=== PATIENT | male | born 1935 | race Caucasian/White ===

== ENCOUNTER 2019-10-19 00:22 | Outpatient (CLI) | payer MEDICARE, SELFPAY ==
[2019-10-19 17:48] LABS: SARS-CoV-2 RNA PCR Negative
== END 2019-10-19 00:23 | disposition home or self-care (01) ==
LOC: ANHCOVIDDT 00:23
PROVIDERS: PCP Internal Medicine; Visit Provider Internal Medicine Cardiovascular Disease
DX: Z01.818 Encounter for other preprocedural examination (principal); Z11.59 Encounter for screening for other viral diseases
CPT/HCPCS: 87635; C9803; U0003

== ENCOUNTER → 2019-10-22 05:39 | Day surgery (SDC) | payer MEDICARE, SELFPAY ==
[2019-10-22 08:16] VITALS: BP 139/83; PULSE 62; RESP 13; TEMP 36.7; O2SAT 97; BMI 26.4
--- NOTE | 2019-10-22 08:46 | WPDHPUPDATE1 ---
History and Physical Update Update Date/Time: 10/22/19 08:46 History and Physical has been reviewed, including an updated exam of the patient. There are NO changes in the patient's condition. Risks, benefits, and alternatives have been discussed and questions answered. Patient agrees to proceed with procedure.
--- NOTE | 2019-10-22 08:46 | PM.PROC ---
Procedure Note - Detailed Date of procedure: 10/22/19 Pre-op diagnosis: Syncope Post-op diagnosis: same Procedure performed: Loop recorder implantation Description of procedure: Brief history present illness: Patient is a very pleasant 84-year-old male with a history of nonsustained ventricular tachycardia, PVCs, syncope, hypertension, dyslipidemia, mitral regurgitation referred for loop recorder implantation given unexplained syncope and ventricular arrhythmias. After verbal and written informed consent was obtained from the patient risks, benefits, and alternatives explained in detail the patient agreed to proceed with the plan of care as outlined above. Patient was evaluated at bedside in the [facility] procedure room. Patient was placed the appropriate supine position. Left anterior chest wall was prepped and draped in the usual sterile fashion. Operators in appropriate sterile garb. The left 4th intercostal space was identified and marked. Utilizing approximately 16 cc of 1% subcutaneous lidocaine the left anterior chest wall was then locally anesthetized. After local anesthesia was achieved, 2 fingerbreadths left of the sternum the 4-5th intercostal space was again identified and a 1 cm incision was made with the included skin punch tool. Following this with the included introducer, a tract was made subcutaneously at a 45 degree angle from the sternum. The introducer was then inverted 180 degrees and with the included plunger the Medtronic REVEAL LINQ loop recorder was advanced subcutaneously into position easily and without complication. The plunger was then removed followed by the introducer. Manual pressure was held for least 5-10 min with excellent hemostasis. The device was then interrogated and revealed excellent fidelity and measured at mV. The Medtronic REVEAL LINQ SN [id number] was implanted without complication. The incision was then approximated and closed using ExoFin skin adhesive. The incision was then covered with a sterile dressing. Complications: None Implants: Medtronic REVEAL LINQ loop recorder Anesthesia: local Surgeon: Sanford Hudson MD Drains: No Packing: No Pathology: none sent Complications: No immediate complications Condition: stable Disposition: same day Findings: Successful implantation of Medtronic Reveal LINQ loop recorder SN [id number] without complication.
[2019-10-22 09:30] VITALS: BP 135/68; PULSE 72; RESP 14; TEMP 36.9; O2SAT 97
--- NOTE | 2019-10-22 10:28 | SUR.OPER ---
0945 D/C instructions reviewed with patient, questions asked pt verbalized understanding, left upper chest dressing c/d/i, no stated pain per pt, pt ambulatory and escorted out to his that is transporting him home in private vehicle.
== END | disposition home or self-care (01) ==
PROVIDERS: PCP Internal Medicine; Visit Provider Internal Medicine Cardiovascular Disease
PROC: (CPT 33285; principal; 2019-10-22 08:30)
DX: R55 Syncope and collapse (principal); I10 Essential (primary) hypertension; E78.5 Hyperlipidemia, unspecified; I47.1 Supraventricular tachycardia; I34.0 Nonrheumatic mitral (valve) insufficiency; I49.3 Ventricular premature depolarization
CPT/HCPCS: 33285; 87635; C1764; C9803; J7040; U0003

== ENCOUNTER 2020-03-18 09:55 | Outpatient (CLI) | payer MEDICARE, SELFPAY ==
[2020-03-18 10:41] LABS: Alanine Aminotransferase 27 U/L (4-50); Albumin Level 4.3 g/dL (3.5-5.1); Alkaline Phosphatase 66 U/L (38-126); Anion Gap 8 mmol/L (8-16); Aspartate Amino Transferase 33 U/L (17-59); Bilirubin,Total 0.4 mg/dL (0.2-1.3); Blood Urea Nitrogen 22 mg/dL (9-20); Calcium 9.2 mg/dL (8.4-10.2); Carbon Dioxide 27 mmol/L (22-30); Chloride 104 mmol/L (98-107); Cholesterol 128 mg/dL (0-200); Estimated Glomerular Filt Rate > 60; Glucose 96 mg/dL (75-110); HDL Direct 43 mg/dL; Potassium 4.6 mmol/L (3.4-5.0); Sodium 139 mmol/L (137-145); Triglycerides 72 mg/dL (<150)
[2020-03-18 10:52] LABS: LDL Cholesterol Direct 60 mg/dL
[2020-03-18 11:24] LABS: Vitamin D 25 Hydroxy 47.5 ng/mL
[2020-03-18 12:59] LABS: Hemoglobin A1C 5.6 % (<5.7)
== END 2020-03-18 09:56 | disposition home or self-care (01) ==
LOC: ANHLAB 09:57
PROVIDERS: PCP Internal Medicine; Visit Provider Nurse Practitioner
DX: R73.02 Impaired glucose tolerance (oral) (principal); E55.9 Vitamin D deficiency, unspecified; E78.00 Pure hypercholesterolemia, unspecified
CPT/HCPCS: 36415; 80053; 80061; 82306; 83036

== ENCOUNTER 2020-09-01 14:43 | Outpatient (CLI) | payer MEDICARE, SELFPAY ==
--- NOTE | ~2020-09-01 | XR_ITS ---
EXAMINATION: XR chest 2V DATE: 09/01/2020 15:07 INDICATION: Cough TECHNIQUE: PA and lateral views of the chest were obtained. COMPARISON: Chest radiograph dated 04/27/2019 FINDINGS: The lungs are now clear with no focal airspace opacities, pulmonary edema, pleural effusion or pneumo thorax. The cardiomediastinal silhouette is normal. Left pectoral implantable cardiac cath lab manager. Mild t horacic spondylosis. IMPRESSION: 1. No acute cardiopulmonary disease. Reviewed, dictated and finalized at location A.
== END 2020-09-01 14:44 | disposition home or self-care (01) ==
LOC: ANHIMG 14:56
PROVIDERS: PCP Internal Medicine; Visit Provider Internal Medicine
DX: R05 Cough (principal); I10 Essential (primary) hypertension; Z51.81 Encounter for therapeutic drug level monitoring
CPT/HCPCS: 71046

== ENCOUNTER 2020-09-23 10:28 | Outpatient (CLI) | payer MEDICARE, SELFPAY ==
--- NOTE | ~2020-09-23 | XR_ITS ---
XR knee LT 3V DATE: 09/23/2020 11:06 INDICATION: Chronic left knee pain for years. No recent injury. TECHNIQUE: [place] and AP and lateral views COMPARISON: 12/23/2016 left knee FINDINGS: There is severe narrowing and prominent periarticular spurring at the patellofemoral joint, with mild lateral subluxation. There is prominent loss of height of the medial compartment joint space. There is mild periarticular spurring of the lateral tibial patella. Diffuse osteopenia. No fracture or dislocation or joint effusion is evident. No periosteal reaction or bone destruction. No radiopaque intra-articular loose body or chondrocalcinosis is noted. IMPRESSION: Tricompartment osteoarthritis with increasing severity from a lateral to the medial to th e patellofemoral compartment Reviewed, dictated and finalized at location B. IMPRESSION: Tricompartment osteoarthritis with increasing severity from a later al to the medial to the patellofemoral compartment
[2020-09-23 11:14] LABS: Alanine Aminotransferase 18 U/L (4-50); Albumin Level 4.1 g/dL (3.5-5.1); Alkaline Phosphatase 66 U/L (38-126); Anion Gap 5 mmol/L (8-16); Aspartate Amino Transferase 26 U/L (17-59); Bilirubin,Total 0.6 mg/dL (0.2-1.3); Blood Urea Nitrogen 17 mg/dL (9-20); Calcium 9.6 mg/dL (8.4-10.2); Carbon Dioxide 27 mmol/L (22-30); Chloride 106 mmol/L (98-107); Cholesterol 117 mg/dL (0-200); Estimated Glomerular Filt Rate > 60; Glucose 96 mg/dL (75-110); HDL Direct 48 mg/dL; Hemoglobin A1C 5.9 % (<5.7); Potassium 4.5 mmol/L (3.4-5.0); Sodium 138 mmol/L (137-145); Triglycerides 60 mg/dL (<150)
[2020-09-23 11:25] LABS: LDL Cholesterol Direct 53 mg/dL
[2020-09-23 11:46] LABS: Vitamin D 25 Hydroxy 41.7 ng/mL
== END 2020-09-23 10:29 | disposition home or self-care (01) ==
PROVIDERS: PCP Internal Medicine; Referring Provider Nurse Practitioner; Visit Provider Internal Medicine
DX: R73.01 Impaired fasting glucose (principal); M17.12 Unilateral primary osteoarthritis, left knee; Z51.81 Encounter for therapeutic drug level monitoring; Z79.899 Other long term (current) drug therapy; E78.5 Hyperlipidemia, unspecified; E55.9 Vitamin D deficiency, unspecified; I10 Essential (primary) hypertension
CPT/HCPCS: 36415; 73562; 80053; 80061; 82306; 83036

== ENCOUNTER 2020-12-24 12:30 | Outpatient (RCR) | payer MEDICARE, SELFPAY ==
--- NOTE | 2020-11-26 17:05 | PTOPEVAL ---
PHYSICAL THERAPY EVALUATION Thank you for referring Jesus Mcgee to [facility].? Jesus was evaluated for the dx of left knee DJD. The patient is scheduled to be seen for therapy?1 x/week for 4 weeks. Please review, sign, date and return this plan of care SEVERINO. I agree with and certify that the following plan of care is medically necessary. Referring Physician Date Attending Provider: Yovanny Yo MD *PT Outpatient Evaluation Start: 11/26/20 15:25 Freq: Status: Active Protocol: Document 11/26/20 15:26 MLV (Rec: 11/26/20 16:26 MLV [id number]) Therapy Assessment Status Assessment Status Assessment Status Evaluation Evaluation Information Problem Diagnosis left knee DJD Onset September 2020 Cause no new injury Additional Evaluation Detail The patient reports having left knee pain beginning first 12 yrs ago when heard a crack while carrying some heavy boxes. The pt saw the MD about 4 yrs ago and had a cortisone shot for knee pain and had therapy. Patient was asymptomatic until this September when it flared up again w/o injury. Patient is retired but fairly active. The patient now has knee pain with walking, shopping activities and notes a fatigue at his leg muscles. It has improved since September but still feels tightness with bending and a muscle weakness. The patient would like to have a little less stiffness and improved strength so to prevent or avoid knee replacement surgery. Subjective Information Patient lives home with his Query Text:As Reported By Patient/ , I w/o a device and does Family stairs regularly to his family room in the basement. Diagnostic Tests X-Rays For This Problem Yes: DJD left knee Pain Assessment Timing of Pain Assessment Timing of Pain Assessment Assessment Pain Scale Pain Scale Used Numeric (1 - 10) Self Report Pain Assessment Left Knee(s) Reported Pain Level 0 Pain Description Aching,Heavy,Tightness Pain Frequency Acute Other Pain Description 5 with shopping/walkin
--- NOTE | 2020-12-24 14:46 | PTOPEVAL ---
PHYSICAL THERAPY DISCHARGE Thank you for referring Jesus Mcgee to [facility].? The patient has met his goals after 5 treatments for the dx of left knee pain/DJD. DC PT. Please review, sign, date and return this plan of care SEVERINO. I agree with and certify the following plan of care. Referring Physician Date Attending Provider: Yovanny Yo MD *PT Outpatient Discharge Start: 11/26/20 15:25 Freq: Status: Active Protocol: Document 12/24/20 12:37 MLV (Rec: 12/24/20 13:00 MLV [id number]) Therapy Assessment Status Assessment Status Discharge Evaluation Information Problem Diagnosis left knee DJD Additional Evaluation Detail The patient reports completing his exercises and feels he is getting stronger. The pt feels he can continue his exercises and will probably see further improvement with his pain relief and his strength. Pain Assessment Pain Scale Pain Scale Used Numeric (1 - 10) Self Report Pain Assessment Left Knee(s) Reported Pain Level 0 Pain Frequency Chronic Other Pain Description 2-3with walking Pain Score Pain Score 0: Self Report Interventions Used Interventions Used By Clinicians Education,Exercise Pain Relief Interventions Used By Exercise,Inactivity/Rest, Patient Position Change Lower Extremity Range of Motion General Lower Extremity Range of Motion Reason Not Measured WNL/Left,WNL/Right Gross Lower Extremity Range of Motion right knee 0-141' active Comments motion left knee 0'-132' active motion (improved) Muscle Length Testing Muscle Length Testing Piriformis w/Hip Flexion <90 Degrees (R) WFL,(L) Mild Tightness Raj's Test Hip Muscle Length (R) WFL,(L) WFL Right Straight Leg Raise Muscle Length ( 66 degrees) Left Straight Leg Raise Muscle Length ( 68 degrees) Gastrocnemius Length (R) WFL,(L) WFL PT Clinical Summary Mr. Mcgee has progressed and demonstrates I with his HEP. The patient has improved knee range of motion and is tolerating moderately resisted LE exercises w/o increased pain. The patient is able to continue and progress his current program on his own and has met his goals. No further
== END 2020-12-25 16:37 | disposition home or self-care (01) ==
LOC: ANHPT 12:30
PROVIDERS: PCP Internal Medicine; Visit Provider Orthopaedic Surgery
DX: M17.12 Unilateral primary osteoarthritis, left knee (principal)
CPT/HCPCS: 97110; 97140; 97161

== ENCOUNTER 2020-12-25 16:39 | Outpatient (RCR) | payer MEDICARE, SELFPAY | END 2020-12-25 16:40 | disposition home or self-care (01) | LOC: ANHPT 16:39 | PROVIDERS: PCP Internal Medicine; Visit Provider Orthopaedic Surgery | DX: M17.12 Unilateral primary osteoarthritis, left knee (principal) | CPT/HCPCS: 99199 ==

== ENCOUNTER 2021-03-17 09:48 | Outpatient (CLI) | payer MEDICARE, SELFPAY ==
[2021-03-17 10:25] LABS: Alanine Aminotransferase 20 U/L (4-50); Albumin Level 4.1 g/dL (3.5-5.1); Alkaline Phosphatase 62 U/L (38-126); Anion Gap 3 mmol/L (8-16); Aspartate Amino Transferase 27 U/L (17-59); Bilirubin,Total 0.6 mg/dL (0.2-1.3); Blood Urea Nitrogen 18 mg/dL (9-20); Calcium 9.2 mg/dL (8.4-10.2); Carbon Dioxide 30 mmol/L (22-30); Chloride 106 mmol/L (98-107); Cholesterol 114 mg/dL (0-200); Estimated Glomerular Filt Rate > 60; Glucose 96 mg/dL (65-110); HDL Direct 43 mg/dL; Sodium 139 mmol/L (137-145); Triglycerides 71 mg/dL (<150)
[2021-03-17 10:36] LABS: LDL Cholesterol Direct 57 mg/dL
[2021-03-17 10:41] LABS: Vitamin D 25 Hydroxy 50.7 ng/mL
[2021-03-17 13:08] LABS: Hemoglobin A1C 5.7 % (<5.7)
== END 2021-03-17 09:49 | disposition home or self-care (01) ==
LOC: ANHLAB 09:50
PROVIDERS: PCP Internal Medicine; Visit Provider Nurse Practitioner
DX: E78.00 Pure hypercholesterolemia, unspecified (principal); R73.01 Impaired fasting glucose; E55.9 Vitamin D deficiency, unspecified
CPT/HCPCS: 36415; 80053; 80061; 82306; 83036

== ENCOUNTER 2021-09-17 09:24 | Outpatient (CLI) | payer MEDICARE, SELFPAY ==
[2021-09-17 10:12] LABS: Alanine Aminotransferase 17 U/L (6-50); Albumin Level 4.1 g/dL (3.5-5.1); Alkaline Phosphatase 73 U/L (38-126); Anion Gap 5 mmol/L (8-16); Aspartate Amino Transferase 27 U/L (17-59); Bilirubin,Total 0.5 mg/dL (0.2-1.3); Blood Urea Nitrogen 21 mg/dL (9-20); Calcium 8.8 mg/dL (8.4-10.2); Carbon Dioxide 26 mmol/L (22-30); Chloride 105 mmol/L (98-107); Cholesterol 122 mg/dL (0-200); Estimated Glomerular Filt Rate > 60; Glucose 94 mg/dL (65-110); HDL Direct 45 mg/dL; Potassium 4.3 mmol/L (3.4-5.0); Sodium 136 mmol/L (137-145); Triglycerides 57 mg/dL (<150)
[2021-09-17 10:23] LABS: LDL Cholesterol Direct 52 mg/dL
[2021-09-17 10:51] LABS: Vitamin D 25 Hydroxy 69.5 ng/mL
[2021-09-17 15:56] LABS: Hemoglobin A1C 5.7 % (<5.7)
== END 2021-09-17 09:25 | disposition home or self-care (01) ==
LOC: ANHLAB 09:27
PROVIDERS: PCP Internal Medicine; Visit Provider Internal Medicine
DX: R73.01 Impaired fasting glucose (principal); I10 Essential (primary) hypertension; Z51.81 Encounter for therapeutic drug level monitoring; E55.9 Vitamin D deficiency, unspecified; E78.5 Hyperlipidemia, unspecified
CPT/HCPCS: 36415; 80053; 80061; 82306; 83036

== ENCOUNTER 2022-04-06 13:42 | Outpatient (CLI) | payer MEDICARE, SELFPAY ==
[2022-04-06 14:14] LABS: Alanine Aminotransferase 24 U/L (6-50); Albumin Level 4.5 g/dL (3.5-5.1); Alkaline Phosphatase 73 U/L (38-126); Anion Gap 11 mmol/L (8-16); Aspartate Amino Transferase 29 U/L (17-59); Bilirubin,Total 0.5 mg/dL (0.2-1.3); Blood Urea Nitrogen 22 mg/dL (9-20); Calcium 9.2 mg/dL (8.4-10.2); Carbon Dioxide 23 mmol/L (22-30); Chloride 104 mmol/L (98-107); Cholesterol 124 mg/dL (0-200); Estimated Glomerular Filt Rate > 60; Glucose 76 mg/dL (65-110); HDL Direct 47 mg/dL; Potassium 4.6 mmol/L (3.4-5.0); Sodium 138 mmol/L (137-145); Triglycerides 70 mg/dL (<150)
[2022-04-06 14:26] LABS: LDL Cholesterol Direct 55 mg/dL
== END 2022-04-06 13:43 | disposition home or self-care (01) ==
PROVIDERS: PCP Internal Medicine; Visit Provider Nurse Practitioner
DX: E78.5 Hyperlipidemia, unspecified (principal)
CPT/HCPCS: 36415; 80053; 80061

== ENCOUNTER 2022-04-20 09:00 | Inpatient (IN) | payer MEDICARE, SELFPAY ==
--- NOTE | ~2022-04-20 | XR_ITS ---
Right Hip Technique: Portable AP and lateral views Clinical History: Status post hip arthroplasty Findings: Patient is status post right hip arthroplasty. Orthopedic hardware alignment appears anatom ic. No hardware complication is evident. Subcutaneous emphysema and swelling is likely postoperative in nature. No acute osseous fracture is seen. Impression: Status post right hip arthroplasty, without evidence of hardware complication. Reviewed, dictated and finalized at location [] TENDER Impression: Status post right hip arthroplasty, without evidence of hardware complication.
--- NOTE | ~2022-04-20 | XR_ITS ---
EXAMINATION: XR hip RT 2V w AP pelvis DATE: 04/20/2022 09:43 INDICATION: Right hip pain. TECHNIQUE: An anteroposterior view of the pelvis and 2 views of right hip were obtained. COMPARISON: None. FINDINGS: There is a subcapital fracture of right femoral neck. The distal fracture fragment demonstr ates 21 degrees varus attenuation, posterior angulation, and 3.5 cm shortening. There is mild osteoar thritis of the hips. There is lumbar levocurvature and at least mild spondylosis. IMPRESSION: 1. Subcapital fracture of right femoral neck. 2. Mild osteoarthritis of the hips. Reviewed, dictated and finalized at location A. TICIST
--- NOTE | ~2022-04-20 | XR_ITS ---
EXAMINATION: XR chest 1V DATE: 04/20/2022 09:42 INDICATION: Fall. Right hip pain. TECHNIQUE: A single frontal view of the chest was obtained. COMPARISON: Chest 2 views 09/01/2020 FINDINGS: There is no pneumonia, pleural effusion, or pneumothorax. The heart size is normal. There a re prominent paracardial fat pads. There is an electronic implant in left anterior chest wall. IMPRESSION: 1. No acute cardiopulmonary disease. Reviewed, dictated and finalized at location A. CING COORDINATOR
[2022-04-20 09:01] VITALS: RESP 18; TEMP 37.3
--- NOTE | 2022-04-20 09:19 | ECG_ITS ---
Measurements Intervals [place] Rate: 80 P: 97 DC: 187 QRS: -26 QRSD: 124 T: 46 QT: 371 QTc: 430 Interpretive Statements SINUS RHYTHM CANNOT RULE OUT SEPTAL MYOCARDIAL INFARCTION , OF INDETERMINATE AGE [40+ ms Q WAVE IN V1/V2] COMPARED TO ECG 09/21/2018 19:50:23 NO SIGNIFICANT CHANGES Electronically Signed On 04-20-2022 16:34:08 RESIDENTIAL PROGRAM MANAGER by Taz Ross M.D.
[2022-04-20 09:52] LABS: Basophils Percent Auto 0.1 % (0.2-1.2); Hematocrit 39.9 % (42.0-52.0); Hemoglobin 13.4 g/dL (14.0-18.0); Immature Granulocyte Absolute 0.07 K/mm3 (0.00-0.031); Immature Granulocyte Percent A 0.4 % (0-0.5); Lymphocytes Absolute Auto 0.62 K/mm3 (0.9-3.2); Mean Corpuscular HGB Conc 33.6 g/dl (32-36); Mean Corpuscular Hemoglobin 31.9 pg (26-34); Mean Platelet Volume 8.6 fl (7.4-10.4); Monocytes Percent Auto 6.1 % (2.6-8.5); Neutrophils Percent Auto 89.4 % (45.5-73.1); Platelet Count Result 222 k/mm3 (150-375); Red Cell Distribution Width 13.5 % (11.5-14.5); White Blood Count 15.7 K/mm3 (4.5-10.0)
[2022-04-20 10:01] LABS: Anion Gap 7 mmol/L (8-16); Blood Urea Nitrogen 22 mg/dL (9-20); Calcium 8.6 mg/dL (8.4-10.2); Carbon Dioxide 25 mmol/L (22-30); Chloride 100 mmol/L (98-107); Estimated CRCL calculation 49 ml/min; Estimated Glomerular Filt Rate > 60; Glucose 115 mg/dL (65-110); Potassium 4.3 mmol/L (3.4-5.0); Sodium 132 mmol/L (137-145)
--- NOTE | 2022-04-20 10:57 | ED.LOWEXIN ---
HPI - Extremity Injury (Lower) General Chief Complaint: Extremity Injury, Lower <Marcela Ennis PA-C - Last Filed: 04/20/22 12:40> Stated Complaint: GLF R LEG SHORT/ROTATED <Marcela Ennis PA-C - Last Filed: 04/20/22 12:40> Time Seen by Provider: 04/20/22 09:19 <ASHTYN Pierce Last Filed: 04/20/22 12:40> Source: patient <Marcela Ennis PA-C - Last Filed: 04/20/22 12:40> Mode of arrival: EMS <ASHTYN Pierce Last Filed: 04/20/22 12:40> Limitations: no limitations <Marcela Ennis PA-C - Last Filed: 04/20/22 12:40> History of Present Illness HPI Narrative: This is a 86 year old male that presents to the ER for right hip pain after a fall last night. Reports he was going down the steps into the garage. Reports he missed the last step and fell onto his right hip. Since he has had right hip pain. He has not been able to ambulate due to the pain. Denies any other injuries. He did not hit his head or lose consciousness. Denies numbness or weakness. <Marcela Ennis PA-C - Last Filed: 04/20/22 12:40> Related Data Home Medications: Home Medications Medication Instructions Recorded Confirmed cholecalciferol (vitamin D3) 50 50 mcg PO DAILY 03/24/21 04/20/22 mcg (2,000 unit) capsule amlodipine 5 mg tablet 10 mg PO DAILY 04/20/22 04/20/22 atorvastatin 20 mg tablet 20 mg PO DAILY 04/20/22 04/20/22 clopidogrel 75 mg tablet 75 mg PO DAILY 04/20/22 04/20/22 fluticasone propionate 50 1 spray intranasal HS 04/20/22 04/20/22 mcg/actuation nasal spray,suspension <ASHTYN Pierce Last Filed: 04/20/22 12:40> Allergies/Adverse Reactions: Allergies Allergy/AdvReac Type Severity Reaction Status Date / Time No Known Allergies Allergy Verified 04/20/22 09:11 <Marcela Ennis PA-C - Last Filed: 04/20/22 12:40> Review of Systems Review of Systems: CONSTITUTIONAL: Denies fever CARDIOVASCULAR: Denies chest pain, or edema. GASTROINTESTINAL: Denies vomiting MUSCULOSKELETAL: Reports joint pain, and myalgia. Denies back pain NEUROLOGIC: Denies headache, numbness, or weakness. <Marcela Ennis PA-C - Last Filed: 04/20/22 12:40> All systems reviewed & are unremarkable except as noted in HPI and below <Marcela Ennis PA-C - Last Filed: 04/20/22 12:40> [facility] Past Medical History Medical History: Medical History Atrial premature beats Benign prostatic hyperplasia Cerebrovascular accident (04/2019) Hypertension Shingles <Marcela Ennis PA-C - Last Filed: 04/20/22 12:40> Surgical History Surgical History: Surgical History History of appendectomy History of bilateral cataract extraction History of surgical removal of lesion x2 History of tonsillectomy <Marcela Ennis PA-C - Last Filed: 04/20/22 12:40> Family History Family History: Family History Father Cerebrovascular accident Had a stroke age 77 age 82 Mother Cerebrovascular accident Sounds like she actually had head trauma perhaps a subdural hematoma and stroke stroke symptoms as result, age 76 Other Family history of arthritis Hypertension <Marcela Ennis PA-C - Last Filed: 04/20/22 12:40> Social History Social History: Social History Social History: , active in his orthodox and with [employer], lives in a house. Has 3 sons Smoking status: Never smoker Second hand tobacco smoke exposure: No Alcohol intake: never Substance use: never Substance use type: does not use Lack of Transportation: No Lack of Food: Never True Current Housing: I Have Housing Concerned About Future Housing: No Difficulty Paying Gas/Electric Bills: No Difficulty Paying for Meds: No Currently Unem
[2022-04-20 10:59] VITALS: BP 162/67; PULSE 83; RESP 20; O2SAT 94
[2022-04-20] MEDS: ONDANSETRON INJ 4 MG/2 ML VIAL IV PUSH (11:19)
[2022-04-20] MEDS: MORPHINE SULFATE (*CRX) 2 MG/ML INJ IV PUSH (11:19)
[2022-04-20 11:58] LABS: Influenza A QL RT-PCR Negative (Negative); Influenza B QL RT-PCR Negative (Negative); SARS-CoV-2 RNA PCR Negative
[2022-04-20 12:13] LABS: Add Urine Microscopic? YES; Appearance Urine Clear (Clear); Bilirubin Urine Negative (Negative); Blood Urine Trace-Intact (Negative); Color Urine Light Yellow (Yellow); Glucose Urine UA Negative (Negative); Ketones Urine 2+ mg/dL (Negative); Leukocyte Esterase Ur Negative LEU/UL (Negative); Nitrate Urine Negative (Negative); Protein Urine Negative (Negative); Specific Grav Ur 1.025 (1.001-1.035); Urobilinogen Urine 0.2 mg/dL (<2.0); pH Urine 5.5 (5.0-9.0)
[2022-04-20 12:24] VITALS: PULSE 74; RESP 16; O2SAT 96
[2022-04-20 12:24] LABS: Bacteria Urine Trace /hpf; Mucus Urine Rare /lpf; RBC Urine 0-2 /hpf (0-2); Squamous Epithelial Cell Urine Rare /hpf (Few); WBC Urine 0-3 /hpf
[2022-04-20 12:31] VITALS: BP 115/61; PULSE 76; RESP 19; O2SAT 95
--- NOTE | 2022-04-20 12:45 | PM.IMHP ---
H&P: HPI History of Present Illness Date/Time: 04/20/22 12:45 Chief Complaint: Right leg pain after fall. Narrative: This is a very pleasant 86-year-old male with history of stroke, hypertension, and hyperlipidemia who presented to the emergency department for evaluation of right leg pain after fall. Last evening while walking down a couple of steps into the garage, he got tripped up in his shoe lace and fell hard onto his right hip. He was eventually able to crawl into the house and up onto a chair. Thereafter he attempted to stand was unable to do so due to pain in the hip. This morning he was still unable to ambulate due to pain and came in for evaluation where he was found to have a subcapital fracture of the right femoral neck and he is being admitted in this setting. At the time of my evaluation he is resting comfortably and his main complaint is that of being hungry. He denies head trauma and loss of consciousness in the fall. He did not sustain any other injuries in the fall. Review of Systems Review of Systems: Twelve systems were reviewed. No fever, chills, or sweats. No recent cold or flu symptoms. He sees Dr. Aceves for history of syncope and near syncope for which he has a loop recorder in place. He has not had any such episodes since 2019. No exertional chest pain shortness a breath. Appetite has been good. No nausea or vomiting. No history of venous thromboembolism. Except as documented, all other systems were reviewed and are negative. [facility] Past Medical History Medical History (Updated 04/20/22 @ 22:48 by Elvira Ramirez PA-C) Atrial premature beats Cerebrovascular accident (04/2019) Hypertension Shingles Syncope History of syncope and near syncope in 2017; loop recorder in place. No issues since 2019. Surgical History Surgical History History of appendectomy History of bilateral cataract extraction History of surgical removal of lesion x2 History of tonsillectomy Family History Family History Father Cerebrovascular accident Had a stroke age 78 age 82 Mother Cerebrovascular accident Sounds like she actually had head trauma perhaps a subdural hematoma and stroke stroke symptoms as result, age 76 Other Family history of arthritis Hypertension Social History Social History (Updated 04/20/22 @ 22:49 by Elvira Ramirez PA-C) Social History: . Active in christian. Has 3 sons. Smoking status: Never smoker Second hand tobacco smoke exposure: No Alcohol intake: never Substance use: never Substance use type: does not use Lack of Transportation: No Lack of Food: Never True Current Housing: I Have Housing Concerned About Future Housing: No Difficulty Paying Gas/Electric Bills: No Difficulty Paying for Meds: No Currently Unemployed: No Education: Master's Degree or Higher Difficulty w/ Childcare or Family Care: No Additional living arrangements comments: Lives with spouse in [place]. 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 Spiritual care concerns: No Agree to blood products: Yes Meds Home Medications and Allergies Home Medications Medication Instructions Recorded Confirmed Type cholecalciferol (vitamin D3) 50 50 mcg PO DAILY 03/24/21 04/20/22 History mcg (2,000 unit) capsule lisinopril 10 mg tablet 10 mg PO DAILY #90 tabs 02/26/22 04/20/22 Rx amlodipine 5 mg tablet 10 mg PO DAILY 04/20/22 04/20/22 History atorvastatin 20 mg tablet 20 mg PO DAILY 04/20/22 04/20/22 History clopidogrel 75 mg tablet 75 mg PO DAILY 04/20/22 04/20/22 History fluticasone propionate 50 1 spray intranasal HS 04/20/22 04/20/22 History mcg/actuation nasal spray,suspension Allergies Allergy/AdvReac Type Severity Reaction Status Date / Time No Known Allergies
--- NOTE | 2022-04-20 12:55 | PM.CNOR ---
Assessment and Plan Assessment and plan (1) Closed subcapital fracture of right femur: Qualifiers: Encounter type: initial encounter Qualified Code(s): S72.011A - Unspecified intracapsular fracture of right femur, initial encounter for closed fracture <CeciLUTHER Ledezma - Last Filed: 04/20/22 13:20> Code(s): S72.011A - Unspecified intracapsular fracture of right femur, initial encounter for closed fracture <CeciLUTHER Ledezma - Last Filed: 04/20/22 13:20> Status: Acute <CeciLUTHER Cedeno - Last Filed: 04/20/22 13:20> Assessment and Plan: 86-year-old male admitted status post right hip fracture. The fracture type and injury as well as radiographs discussed with the patient and family. Operative and nonoperative treatment options reviewed. The patient and family elect for operative treatment. Discussed Right Hip Bipolar Risks of surgery including but not limited to neurovascular damage, wound complications, blood clot, pulmonary embolus, stroke, myocardial infarction, anesthetic risks up to and including were reviewed. Continued pain and possible dysfunction were explained. No guarantees were offered. The patient understands and wishes to proceed. Plan: Right Hip Bipolar by Dr. Sanaz MCDONOUGH at midnight Pain control Hold DVT prophylaxis and blood thinners Ice Hip Bed Rest <LUTHER Moraes - Last Filed: 04/20/22 13:20> History of Present Illness HPI Consult date: 04/20/22 <LUTHER Moraes - Last Filed: 04/20/22 13:20> 04/21/22 <Yovanny Yo MD - Last Filed: 04/21/22 09:48> Consult reason: fracture <LUTHER Moraes - Last Filed: 04/20/22 13:20> Chief complaint: Right Subcapital Femoral Neck Fracture <LUTHER Moraes - Last Filed: 04/20/22 13:20> Narrative: 86-year-old male admitted after a fall at home yesterday after going to fix a lighted candle in the garage. Patient states that he fell down 2 steps and without side for quite some time. He lives at home with his who has early onset dementia. He was able to crawl himself to the door and open the sliding door and yell for help eventually. This happened yesterday evening. He then slept overnight on the couch and called his son in the morning around 815. The patient denies loss of consciousness or hitting his head at the time of the fall. radiographs of the right hip at the time of injury reveal a subcapital femoral neck fracture. He denies any other joint pain. Orthopedic consult requested by the emergency room physician. <Ceci Ramsey [facility] - Last Filed: 04/20/22 13:20> Review of Systems Constitutional: Constitutional: Reports no additional constitutional complaints, Denies chills, Denies fatigue, Denies fever(s), Denies headache(s) and Denies weakness <Ceci Danielle Ramsey [facility] - Last Filed: 04/20/22 13:20> Eyes: Eyes: Denies change in vision <Cecisa Danielle Ramsey [facility] - Last Filed: 04/20/22 13:20> ENT: Reports Normal hearing present and Denies headache(s) <Cecisa Danielle Ramsey [facility] - Last Filed: 04/20/22 13:20> Cardiovascular: Cardiovascular: Denies chest pain and Denies dyspnea <Ceci Danielle Ramsey [facility] - Last Filed: 04/20/22 13:20> Respiratory: Respiratory: Denies cough, Denies dyspnea and Denies wheezing <Ceci Danielle Ramsey [facility] - Last Filed: 04/20/22 13:20> Gastrointestinal: Gastrointestinal: Denies constipation, Denies diarrhea, Denies nausea and Denies vomiting <Ceci StephieSalud Ramsey [facility] - Last Filed: 04/20/22 13:20> Genitourinary: Genitourinary: Denies hematuria and Denies dysuria <Ceci Dnaielle Ramsey [facility] - Last Filed: 04/20/22 13:20> Musculoskeletal: Musculoskeletal: Reports as per HPI, Denies numbness and Denies tingling <Ceci Danielle Ramsey [facility] - Last Filed: 04/20/22 13:20> Integumentary/Breasts: Skin/Breast: Reports as per HPI <Ceci Ramsey, [facility] - Last Filed: 04/20/22 13:20> Neurologic: Reports as per HPI, Reports Normal hearing present, Denies headache(s), Denies num
[2022-04-20 13:46] VITALS: BMI 25.1
--- NOTE | 2022-04-20 13:52 | ADMGEN ---
This patient, Jesus Mcgee, was admitted to 3 [facility] Surg Room 304-02 at 1320. Patient/family oriented to hospital policies and general routines including ID bracelet, bed and alarms, visiting hours, pain management, procedures, bathroom and other care routines, personal items, smoking policy, room service/diet, and visiting hours. Information on how to activate the Rapid Response Team has been discussed. Patient/Family are encouraged to report perceived risks to care and to ask questions if they do not understand what they are told or what they should do.
[2022-04-20 13:53] VITALS: BP 156/81; PULSE 78; RESP 20; TEMP 36.8; O2SAT 97
[2022-04-20] MEDS: HYDROcodone/acetaminophen (*CRX) 5-325 MG TABLET 1 TAB PO ×2 (14:12→22:30)
--- NOTE | 2022-04-20 17:45 | PC.NURSE ---
notified surgeon pt last took 75mg of Plavix approx 1700 on 04/19.
[2022-04-20 22:00] VITALS: BP 142/69; PULSE 73; RESP 20; TEMP 36.7; O2SAT 97
[2022-04-21] VITALS (14 sets, daily range): BP systolic 126–157; BP diastolic 56–76; PULSE 66–89; RESP 15–20; TEMP 36.7–37.9; O2SAT 94–98
[2022-04-21 07:02] LABS: Basophils Percent Auto 0.3 % (0.2-1.2); Eosinophils Absolute Auto 0.2 K/mm3 (0-0.3); Hematocrit 40.1 % (42.0-52.0); Hemoglobin 13.1 g/dL (14.0-18.0); Immature Granulocyte Absolute 0.05 K/mm3 (0.00-0.031); Immature Granulocyte Percent A 0.4 % (0-0.5); Lymphocytes Percent Auto 8.5 % (18.3-44.2); Mean Corpuscular HGB Conc 32.7 g/dl (32-36); Mean Corpuscular Hemoglobin 31.5 pg (26-34); Mean Corpuscular Volume 96.4 fl (80-100); Mean Platelet Volume 9.4 fl (7.4-10.4); Monocytes Absolute Auto 0.8 K/mm3 (0.1-0.6); Monocytes Percent Auto 7.1 % (2.6-8.5); Neutrophils Absolute Auto 9.6 K/mm3 (1.3-6.7); Neutrophils Percent Auto 81.7 % (45.5-73.1); Platelet Count Result 194 k/mm3 (150-375); Red Blood Count 4.16 M/mm3 (4.6-6.20); Red Cell Distribution Width 13.7 % (11.5-14.5); White Blood Count 11.7 K/mm3 (4.5-10.0)
[2022-04-21 07:17] LABS: Alanine Aminotransferase 22 U/L (6-50); Albumin Level 3.7 g/dL (3.5-5.1); Alkaline Phosphatase 64 U/L (38-126); Anion Gap 6 mmol/L (8-16); Aspartate Amino Transferase 37 U/L (17-59); Bilirubin,Total 1.1 mg/dL (0.2-1.3); Blood Urea Nitrogen 16 mg/dL (9-20); Carbon Dioxide 26 mmol/L (22-30); Chloride 103 mmol/L (98-107); Estimated CRCL calculation 49 ml/min; Estimated Glomerular Filt Rate > 60; Glucose 96 mg/dL (65-110); Magnesium 2.1 mg/dL (1.6-2.3); Potassium 4.1 mmol/L (3.4-5.0); Sodium 135 mmol/L (137-145)
[2022-04-21] MEDS: LACTATED RINGERS 1,000 ML 30 ML IV CONT ×2 (09:00→12:18)
--- NOTE | 2022-04-21 09:10 | WPDANESEPPF ---
Anes - Initial Pre Proc Eval Procedure: Operation Date: 04/21/22 09:00 Proposed Procedures p Right Bipolar Hip Replacement - Yovanny Yo MD Date/Time: 04/21/22 09:10 Surgeon: Dusty Nicholson MD Pre Op Diagnosis: Right Subcapital Femoral Neck Fracture Patient Data Age: 86 Gender: M Height: 1.78 m Weight: 79.8 kg Last Vital Signs Temp 36.9 C 04/21/22 06:00 Pulse 79 04/21/22 06:00 Resp 18 04/21/22 06:00 BP 143/76 H 04/21/22 06:00 Pulse Ox 95 04/21/22 06:00 O2 Del Method Room Air 04/20/22 21:00 Allergies Allergy/AdvReac Type Severity Reaction Status Date / Time No Known Allergies Allergy Verified 04/21/22 08:58 Home Medications Medication Instructions Recorded Confirmed Type cholecalciferol (vitamin D3) 50 50 mcg PO DAILY 03/24/21 04/21/22 History mcg (2,000 unit) capsule lisinopril 10 mg tablet 10 mg PO DAILY #90 tabs 02/26/22 04/21/22 Rx amlodipine 5 mg tablet 10 mg PO DAILY 04/20/22 04/21/22 History atorvastatin 20 mg tablet 20 mg PO DAILY 04/20/22 04/21/22 History clopidogrel 75 mg tablet 75 mg PO DAILY 04/20/22 04/21/22 History fluticasone propionate 50 1 spray intranasal HS 04/20/22 04/21/22 History mcg/actuation nasal spray,suspension Laboratory Tests 04/20/22 04/20/22 04/20/22 09:47 09:47 11:18 WBC 15.7 K/mm3 H K/mm3 (4.5-10.0) RBC 4.20 M/mm3 L M/mm3 (4.6-6.20) Hgb 13.4 g/dL L g/dL (14.0-18.0) Hct 39.9 % L % (42.0-52.0) MCV 95.0 fl fl (80-100) MCH 31.9 pg pg (26-34) MCHC 33.6 g/dl g/dl (32-36) RDW 13.5 % % (11.5-14.5) Plt Count 222 k/mm3 D k/mm3 (150-375) MPV 8.6 fl fl (7.4-10.4) Immature Gran % (Auto) 0.4 % % (0-0.5) Neut % (Auto) 89.4 % H % (45.5-73.1) Lymph % (Auto) 4.0 % L % (18.3-44.2) [place] % (Auto) 6.1 % % (2.6-8.5) Eos % (Auto) 0.0 % % (0-4.4) Baso % (Auto) 0.1 % L % (0.2-1.2) Lymph # (Auto) 0.62 K/mm3 L K/mm3 (0.9-3.2) [place] # (Auto) 1.0 K/mm3 H K/mm3 (0.1-0.6) Eos # (Auto) 0.0 K/mm3 K/mm3 (0-0.3) Baso # (Auto) 0.0 K/mm3 K/mm3 (0.0-0.1) Abs Immat Gran (auto) 0.07 K/mm3 H K/mm3 (0.00-0.031) Absolute Neuts (auto) 14.0 K/mm3 H K/mm3 (1.3-6.7) Absolute Nucleated RBC 0.0 K/mm3 K/mm3 (0.0-0.012) Nucleated RBC % 0.0 % % (0.0-0.2) Sodium 132 mmol/L L mmol/L (137-145) Potassium 4.3 mmol/L mmol/L (3.4-5.0) Chloride 100 mmol/L mmol/L (98-107) Carbon Dioxide 25 mmol/L mmol/L (22-30) Anion Gap 7 mmol/L L mmol/L (8-16) BUN 22 mg/dL H mg/dL (9-20) Creatinine 1.00 mg/dL mg/dL (0.7-1.3) Estim Creat Clear Calc 49 ml/min ml/min Estimated GFR > 60 (59 - ) Glucose 115 mg/dL H mg/dL (65-110) Calcium 8.6 mg/dL mg/dL (8.4-10.2) Magnesium Total Bilirubin AST ALT Alkaline Phosphatase Total Protein Albumin Urine Color Urine Appearance Urine pH Ur Specific [place] Urine Protein Urine Glucose (UA) Urine Ketones Ur Blood (Man) Urine Nitrate Urine Bilirubin Urine Urobilinogen Leukocyte Esterase Rfl Urine RBC Urine WBC Ur Squamous Epith Cells Urine Bacteria Urine Mucus Influenza A (RT-PCR) Negative (Negative) Influenza B (RT-PCR) Negative (Negative) SARS-CoV-2 RNA (RT-PCR) Negative 04/20/22 04/21/22 04/21/22 11:56 06:13 06:13 WBC 11.7 K/mm3 H K/mm3 (4.5-10.0) RBC 4.16 M/mm3 L M/mm3 (4.6-6.20) Hgb
[2022-04-21] MEDS: TRANEXAMIC ACID 1,000MG/ISO100 1,000 MG/100 ML BAG 200 MG IVPB (09:23)
--- NOTE | 2022-04-21 09:48 | WPDHPUPDATE1 ---
History and Physical Update Update Date/Time: 04/21/22 09:48 History and Physical has been reviewed, including an updated exam of the patient. There are NO changes in the patient's condition. Risks, benefits, and alternatives have been discussed and questions answered. Patient agrees to proceed with procedure.
[2022-04-21] MEDS: ceFAZolin 2 GM/D5W 50 ML 2 GM/50 ML BAG IVPB ×2 (09:54→17:53)
[2022-04-21] MEDS: TRANEXAMIC ACID 1,000 MG/10 ML AMPUL 1000 MG IV PUSH (11:26)
--- NOTE | 2022-04-21 12:47 | W.PM.PROC2 ---
Procedure Note - Detailed Date of Procedure 04/21/22 Pre-op Diagnosis Right Subcapital Femoral Neck Fracture Post-op Diagnosis Same Procedure Performed RIGHT HIP HEMIARTHROPLASTY WITH BIPOLAR PROSTHESIS Surgeon Yovanny Yo MD Anesthesia General Description of Procedure THE PATIENT WAS TAKEN TO THE OPERATING ROOM IN STABLE CONDITION. HE WAS PLACED IN THE LATERAL DECUBITUS AND THE RIGHT LOWER EXTREMITY WAS PREPPED AND DRAPED IN THE STERILE FASHION. INCISION WAS MADE IN THE POSTERIOR LATERAL SIDE OF THE HIP, DOWN TO THE FASCIA LAYER. THE FASCIA WAS INCISED. THE HIP WAS EXPOSED. THE SHORT EXTERNAL ROTATORS WERE EXPOSED AND THERE WAS A LARGE HEMATOMA. THE CAPSULE WAS INCISED EXPOSING THE FRACTURE. THE FEMORAL HEAD WAS REMOVED. IT MEASURED 47 MM. AN OSTEOTOMY WAS MADE TO THE FEMORAL NECK ABOUT 1 CM PROXIMAL TO THE LESSER TROCHANTER. NEXT THE FEMUR WAS PREPARED WITH INITIAL CANAL FINDER THEN SEQUENTIAL REAMING UNTIL A #11 REAMER AND BROACHING TILL A #11 BROACH FIT WELL IN 15 OF ANTE VERSION. A +0 STANDARD OFFSET NECK BIPOLAR TRIAL IN A 45 MM SHELL WAS PLACED. THE SHUCK TEST WAS EXCELLENT AND THE STABILITY IN FLEXION AND ROTATION WAS EXCELLENT. LEG LENGTHS WERE GROSSLY EQUAL. TRIALS WERE REMOVED. AN ECHO FRACTURE STEM #11 PRESS FIT STEM WAS PLACED WITH A HIGH OFFSET IN 15 DEG OF ANTEVERSION. A +0 BIPOLAR HEAD NECK TRIAL WAS PLACED AGAIN. THE HIP WAS TRIALED AND THE STABILITY WAS EXCELLENT WERE THE LEG LENGTHS AND THE SHUCK TEST. NEXT A BIPOLAR HEAD NECK +0 IMPLANT WITH A 45 MM COBALT CHROME SHELL WAS PLACED AND TRIALED ONCE AGAIN SHOWING EXCELLENT STABILITY AND GROSSLY EQUAL LEG LENGTHS. THE WOUND WAS IRRIGATED WITH STERILE BETADINE AND WATER FOR 3 MIN. THEN WASHED AGAIN. THE CAPSULE AND THE EXTERNAL ROTATORS WERE APPROXIMATED WITH NUMBER 1 VICRYL. THE FASCIA WITH No 2 QUIL AND THE SUB CUTANEOUS LAYER WITH 2-0 ABSORBABLE SUTURE WITH A RUNNING 3-0 SUBCUTICULAR LAYER WITH STRATAFIX WELL. DERMABOND WAS PLACED AND STERILE DRESSING WAS APPLIED. PATIENT WAS PLACED BACK ON TO THE SUPINE POSITION AND WAS EXTUBATED. Estimated Blood Loss 250 Urine Output 550 Drains No Pathology None sent Complications No immediate complications Condition Stable Disposition PACU
--- NOTE | 2022-04-21 16:25 | PM.IMPN ---
Progress Note: A&P Assessment and Plan (1) Closed subcapital fracture of right femur: Qualifiers: Encounter type: initial encounter Qualified Code(s): S72.011A - Unspecified intracapsular fracture of right femur, initial encounter for closed fracture Code(s): S72.011A - Unspecified intracapsular fracture of right femur, initial encounter for closed fracture Status: Acute Assessment and Plan: POD 0 Ortho to manage post op care Pain medication and anti-emetics on board. DVT deferred to Ortho PT/OT on board (2) Leukocytosis: Qualifiers: Leukocytosis type: unspecified Qualified Code(s): D72.829 - Elevated white blood cell count, unspecified Code(s): D72.829 - Elevated white blood cell count, unspecified Status: Acute Assessment and Plan: WBC is 15.7 Most likely reactive Continue to trend Hold on antibiotics for now (3) Hypertension: Code(s): I10 - Essential (primary) hypertension Status: Acute Assessment and Plan: BP is 139/68 Continue home medications Trend BP Adjust therapy as indicated (4) History of cerebrovascular accident: Code(s): Z86.73 - Personal history of transient ischemic attack (TIA), and cerebral infarction without residual deficits Status: Acute Assessment and Plan: On Plavix at home Resume when deemed appropriate by ortho Time Spent With Patient Time with patient: Greater than 35 minutes Subjective Date/time seen: 04/21/22 16:25 Interval history: 04/21/22 1630 Patient is doing well. He is sitting in the chair. He is worried that he is not going to be able to do the same activities that he is used to. He denies any other complaints. He also stated that his pain is a 1-/10. 04/20/22? 12:45 This is a very pleasant 86-year-old male with history of stroke, hypertension, and hyperlipidemia who presented to the emergency department for evaluation of right leg pain after fall. Last evening while walking down a couple of steps into the garage, he got tripped up in his shoe lace and fell hard onto his right hip. He was eventually able to crawl into the house and up onto a chair. Thereafter he attempted to stand was unable to do so due to pain in the hip. This morning he was still unable to ambulate due to pain and came in for evaluation where he was found to have a subcapital fracture of the right femoral neck and he is being admitted in this setting. At the time of my evaluation he is resting comfortably and his main complaint is that of being hungry. He denies head trauma and loss of consciousness in the fall. He did not sustain any other injuries in the fall. Review of Systems Review of Systems: All systems reviewed & are unremarkable except as noted in HPI and below Exam Narrative: General: well-nourished, well-appearing 78-year-old female, sitting up in bed, comfortable, NARD Neuro: awake, alert and oriented x4, speech clear, no focal neuro deficits noted HEENMT: normocephalic, atraumatic, EOMI, sclerae anicteric, moist oral mucosa Respiratory: Clear to auscultation bilaterally without crackles, rhonchi or wheezes, nonlabored breathing Cardio: regular rate, regular rhythm with S1-S2 Abdomen: nondistended, normoactive bowel sounds, soft, nontender to palpation Extremities: no edema, erythema, or tenderness to palpation, DP pulses 2+ bilaterally Skin: no rashes or lesions, warm and dry Psych: appropriate mood and affect, judgment and insight intact Objective Data Vital Signs Vital Signs: Vital Signs - 24 hr 04/20/22 22:00 04/20/22 21:00 04/21/22 06:00 Temperature 98.0 F 98.5 F Pulse Rate 73 79 Respiratory Rate 20 18 Blood Pressure 142/69 H 143/76 H Pulse Oximetry 97 95 Oxygen Delivery Room Air Oxygen Flow Rate 04/21/22 09:01 04/21/22 12:18 04/21/22 12:30 Temperature 100.2 F H 99.9 F H Pulse
[2022-04-21] MEDS: SENNA/DOCUSATE SODIUM TABLET 2 TAB PO (17:53)
[2022-04-22] MEDS: FAMOTIDINE 20 MG TABLET PO ×3 (02:25→21:58)
[2022-04-22] MEDS: FLUTICASONE PROPIONATE 0.05% NA SPR 16 GM BTL (*BKC) 2 SPRAY NASAL ×2 (02:26→21:58)
[2022-04-22] MEDS: ceFAZolin 2 GM/D5W 50 ML 2 GM/50 ML BAG IVPB ×2 (02:27→11:44)
[2022-04-22 06:42] LABS: Basophils Percent Auto 0.1 % (0.2-1.2); Eosinophils Percent Auto 0.1 % (0-4.4); Hematocrit 35.1 % (42.0-52.0); Hemoglobin 11.5 g/dL (14.0-18.0); Immature Granulocyte Absolute 0.07 K/mm3 (0.00-0.031); Immature Granulocyte Percent A 0.5 % (0-0.5); Lymphocytes Absolute Auto 1.04 K/mm3 (0.9-3.2); Lymphocytes Percent Auto 7.1 % (18.3-44.2); Mean Corpuscular HGB Conc 32.8 g/dl (32-36); Mean Corpuscular Hemoglobin 31.1 pg (26-34); Mean Corpuscular Volume 94.9 fl (80-100); Mean Platelet Volume 9.5 fl (7.4-10.4); Monocytes Absolute Auto 1.5 K/mm3 (0.1-0.6); Neutrophils Absolute Auto 12.1 K/mm3 (1.3-6.7); Neutrophils Percent Auto 82.2 % (45.5-73.1); Platelet Count Result 196 k/mm3 (150-375); Red Cell Distribution Width 13.5 % (11.5-14.5); White Blood Count 14.7 K/mm3 (4.5-10.0)
[2022-04-22 06:53] LABS: Anion Gap 4 mmol/L (8-16); Blood Urea Nitrogen 20 mg/dL (9-20); Calcium 7.9 mg/dL (8.4-10.2); Carbon Dioxide 27 mmol/L (22-30); Chloride 103 mmol/L (98-107); Estimated CRCL calculation 41 ml/min; Estimated Glomerular Filt Rate 58; Glucose 116 mg/dL (65-110); Potassium 4.3 mmol/L (3.4-5.0); Sodium 134 mmol/L (137-145)
[2022-04-22 07:18] VITALS: BP 139/64; PULSE 89; RESP 16; TEMP 36.6; O2SAT 96
[2022-04-22 08:00] VITALS: BP 132/75; PULSE 88; RESP 16; TEMP 36.7; O2SAT 100
--- NOTE | 2022-04-22 08:15 | PM.IMPN ---
Progress Note: A&P Assessment and Plan (1) Closed subcapital fracture of right femur: Qualifiers: Encounter type: initial encounter Qualified Code(s): S72.011A - Unspecified intracapsular fracture of right femur, initial encounter for closed fracture Code(s): S72.011A - Unspecified intracapsular fracture of right femur, initial encounter for closed fracture Status: Acute Assessment and Plan: POD 1 Ortho to manage post op care Pain medication and anti-emetics on board. DVT deferred to Ortho PT/OT on board Discussed rehab options for a quick turn around (2) Leukocytosis: Qualifiers: Leukocytosis type: unspecified Qualified Code(s): D72.829 - Elevated white blood cell count, unspecified Code(s): D72.829 - Elevated white blood cell count, unspecified Status: Acute Assessment and Plan: WBC was 15.7 upon arrival, currently trending back up at 14.7 Most likely reactive to procedure No signs of infection Blood cultures ordered Continue to trend Hold on antibiotics for now (3) Hypertension: Code(s): I10 - Essential (primary) hypertension Status: Acute Assessment and Plan: BP is 139/68 Continue home medications Trend BP Adjust therapy as indicated (4) History of cerebrovascular accident: Code(s): Z86.73 - Personal history of transient ischemic attack (TIA), and cerebral infarction without residual deficits Status: Acute Assessment and Plan: On Plavix at home Resume when deemed appropriate by ortho (5) Fever: Code(s): R50.9 - Fever, unspecified Status: Acute Assessment and Plan: Noted low grade fever of 100.2 post op, currently 99.7 Blood cultures ordered Tylenol on board Probably reactive at this time Continue to trend Time Spent With Patient Time with patient: Greater than 35 minutes Subjective Date/time seen: 04/22/22 0815 Interval history: 04/22/22 08 Patient is doing ok. He is currently in the chair. He denied having any need for pain, however, was having a hard time doing PT. Talked to him about appropriately taking pain medications. He currently denies any chest pain, shortness of breath, nausea, vomiting, diarrhea, weakness, or fatigue. 04/21/22 1630 Patient is doing well. He is sitting in the chair. He is worried that he is not going to be able to do the same activities that he is used to. He denies any other complaints. He also stated that his pain is a . 04/20/22? 12:45 This is a very pleasant 86-year-old male with history of stroke, hypertension, and hyperlipidemia who presented to the emergency department for evaluation of right leg pain after fall. Last evening while walking down a couple of steps into the garage, he got tripped up in his shoe lace and fell hard onto his right hip. He was eventually able to crawl into the house and up onto a chair. Thereafter he attempted to stand was unable to do so due to pain in the hip. This morning he was still unable to ambulate due to pain and came in for evaluation where he was found to have a subcapital fracture of the right femoral neck and he is being admitted in this setting. At the time of my evaluation he is resting comfortably and his main complaint is that of being hungry. He denies head trauma and loss of consciousness in the fall. He did not sustain any other injuries in the fall. Review of Systems Review of Systems: All systems reviewed & are unremarkable except as noted in HPI and below Exam Narrative: General: well-nourished, well-appearing 86-year-old male, sitting up in bed, comfortable, NARD Neuro: awake, alert and oriented x4, speech clear, no focal neuro deficits noted HEENMT: normocephalic, atraumatic, EOMI, sclerae anicteric, moist oral mucosa Respiratory: Clear to auscultation bilaterally without crackle
[2022-04-22] MEDS: HYDROcodone/acetaminophen (*CRX) 7.5-325 MG TABLET 1 TAB PO (10:01)
[2022-04-22] MEDS: polyethylene glycoL 3350 17 GM POWD.PACK PO (10:01)
[2022-04-22] MEDS: CHOLECALCIFEROL 1,000 UNITS TABLET 2000 UNITS PO (10:03)
[2022-04-22] MEDS: amLODIPine BESYLATE 5 MG TABLET 10 MG PO (10:03)
[2022-04-22] MEDS: SENNA/DOCUSATE SODIUM TABLET 2 TAB PO ×2 (10:03→17:07)
[2022-04-22] MEDS: CLOPIDOGREL BISULFATE 75 MG TABLET PO (10:03)
[2022-04-22] MEDS: ATORVASTATIN 20 MG TABLET PO (10:03)
[2022-04-22] MEDS: lisinopriL 10 MG TABLET PO (10:03)
[2022-04-22] MEDS: FONDAPARINUX SODIUM 2.5 MG/0.5 ML SYRINGE SUB-Q (10:03)
--- NOTE | 2022-04-22 10:49 | WPDANESPN ---
Anes - Prog Note Post-Op Date/Time: 04/22/22 10:49 Cardiovascular status: normal Respiratory status: normal Airway patency: baseline Mental status: baseline Post-Op hydration status: normal Vital Signs: Last Vital Signs Temp 36.7 C 04/22/22 08:00 Pulse 88 04/22/22 08:00 Resp 16 04/22/22 08:00 BP 132/75 04/22/22 08:00 Pulse Ox 100 04/22/22 08:00 O2 Del Method Room Air 04/21/22 20:00 O2 Flow Rate 10 04/21/22 12:18 Pain Score (VAS): 06/18 I/O: Intake & Output 04/21/22 04/22/22 04/22/22 23:59 07:59 15:59 Intake Total 650 400 Output Total 750 Balance 650 -350 Laboratory Tests 04/22/22 05:53 04/22/22 05:53 04/22/22 04/22/22 05:53 05:53 WBC 14.7 H RBC 3.70 L Hgb 11.5 L Hct 35.1 L MCV 94.9 MCH 31.1 MCHC 32.8 RDW 13.5 Plt Count 196 MPV 9.5 Immature Gran % (Auto) 0.5 Neut % (Auto) 82.2 H Lymph % (Auto) 7.1 L [place] % (Auto) 10.0 H Eos % (Auto) 0.1 Baso % (Auto) 0.1 L Lymph # (Auto) 1.04 [place] # (Auto) 1.5 H Eos # (Auto) 0.0 Baso # (Auto) 0.0 Abs Immat Gran (auto) 0.07 H Absolute Neuts (auto) 12.1 H Absolute Nucleated RBC 0.0 Nucleated RBC % 0.0 Sodium 134 L Potassium 4.3 Chloride 103 Carbon Dioxide 27 Anion Gap 4 L BUN 20 Creatinine 1.20 Estim Creat Clear Calc 41 Estimated GFR 58 L Glucose 116 H Calcium 7.9 L Post-procedural complaints: none Patient Feedback: Patient satisfied with anesthetic care.
--- NOTE | 2022-04-22 13:15 | PM.PNORT ---
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 WBAT. Walker. HIGH FALL RISK. Continue pain control. Ice hip. Protect skin. DVT prophylaxis with resumed Plavix. SCDs. Incentive Spirometry Use reviewed. Monitor Dressing. Change prior to discharge. Bowel Regimen. Dispo: SNF (2) Closed subcapital fracture of right femur: Qualifiers: Encounter type: initial encounter Qualified Code(s): S72.011A - Unspecified intracapsular fracture of right femur, initial encounter for closed fracture Code(s): S72.011A - Unspecified intracapsular fracture of right femur, initial encounter for closed fracture Status: Acute Subjective Subjective Date/Time Seen: 04/22/22 13:15 Post Op day: 1 Interval history: POD #1: Right Hip Bipolar No new complaints. Pain tolerated well. Hopeful for discharge to SNF as he does not feel his will be able to help him at home. Review of Systems Review of Systems: All systems reviewed & are unremarkable except as noted in HPI and below Constitutional: Constitutional: Denies chills, Denies fever(s), Denies headache(s), Denies lethargy and Reports weakness ENT: Denies headache(s) Cardiovascular: Cardiovascular: Denies chest pain, Denies diaphoresis, Denies lightheadedness, Denies palpitations, Denies dyspnea and Denies dyspnea on exertion Respiratory: Respiratory: Denies cough, Denies dyspnea and Denies dyspnea on exertion Gastrointestinal: Gastrointestinal: Denies constipation, Denies diarrhea, Denies nausea and Denies vomiting Genitourinary: Genitourinary: Denies dysuria, Reports urinary frequency and Denies urinary hesitancy Musculoskeletal: Musculoskeletal: Reports joint swelling (Right Hip ) and Reports limited range of motion (Right Hip due to recent surgery ) Neurologic: Denies headache(s) and Reports weakness Endocrine: Endocrine: Denies palpitations Exam Const: General: comfortable and no acute distress Resp: Effort & Inspection: normal respiratory effort Cardio: Rate: regular rate Rhythm: regular rhythm GI: Inspection: non-distended Skin: General skin exam: normal color Other: Incision right hip c/d/i. Surrounding tissue without redness/warmth. Mild swelling consistent with recent surgery. No drainage. Neuro: Cognition (Neuro): normal cognition Speech: normal speech Extrem: Right lower extremity: normal to inspection, normal capillary refill, hip/thigh Details: tenderness Location: of the hip (Thigh soft ) Location: laterally and anteriorly, swelling Location: at the hip, abnormal ROM (limited consistent with recent surgery ) Details: pain with active ROM during and pain with passive ROM during and other (Incision c/d/i. ); no deformity and no unusual warmth, knee Details: normal to inspection; no tenderness and no swelling, lower leg (Negative Ephraim's Sign ) Details: normal to inspection and no edema; no tenderness, ankle (+ankle dorsiflexion/plantarflexion) Details: normal to inspection and no edema; no tenderness, no swelling and no ecchymosis and foot Details: normal capillary refill, toes with normal ROM, vascular exam Details: dorsalis pedis pulse present and motor-sensory exam Details: light-touch normal; no tenderness Objective Data Vital Signs Vital Signs: Vital Signs - 24 hr 04/21/22 13:25 04/21/22 14:28 04/21/22 13:33 Temperature 36.7 C Pulse Rate 69 70 Respiratory Rate 15 16 Blood Pressure 142/61 H 146/71 H Pulse Oximetry 95 96 Oxygen Delivery Room Air Room Air 04/21/22 13:48 04/21/22 14:18 04/21/22 15:18 Temperature 36.8 C 36.9 C 36.9 C Pulse Rate 66 68 84 Respiratory Rate 20 16 20 Blood Pressure 152/71 H 142/72 H 129/59 L Pulse Oximetry 98 96 97 Oxygen Delivery 04/21/22 20:00 12
[2022-04-22 14:00] VITALS: BP 103/59; PULSE 81; RESP 16; TEMP 36.6; O2SAT 95
[2022-04-22] MEDS: ACETAMINOPHEN 325 MG TABLET 650 MG PO (17:09)
[2022-04-22 22:00] VITALS: BP 129/68; PULSE 78; RESP 18; TEMP 37; O2SAT 99
[2022-04-23] MEDS: HYDROcodone/acetaminophen (*CRX) 7.5-325 MG TABLET 1 TAB PO (05:55)
[2022-04-23 06:00] VITALS: BP 106/63; PULSE 84; RESP 20; TEMP 36.5; O2SAT 96
[2022-04-23 07:00] LABS: Basophils Percent Auto 0.3 % (0.2-1.2); Eosinophils Absolute Auto 0.3 K/mm3 (0-0.3); Hematocrit 32.4 % (42.0-52.0); Hemoglobin 10.9 g/dL (14.0-18.0); Immature Granulocyte Absolute 0.05 K/mm3 (0.00-0.031); Immature Granulocyte Percent A 0.4 % (0-0.5); Lymphocytes Absolute Auto 1.37 K/mm3 (0.9-3.2); Lymphocytes Percent Auto 12.3 % (18.3-44.2); Mean Corpuscular HGB Conc 33.6 g/dl (32-36); Mean Corpuscular Hemoglobin 31.8 pg (26-34); Mean Corpuscular Volume 94.5 fl (80-100); Mean Platelet Volume 9.6 fl (7.4-10.4); Monocytes Absolute Auto 1.2 K/mm3 (0.1-0.6); Monocytes Percent Auto 10.6 % (2.6-8.5); Neutrophils Absolute Auto 8.2 K/mm3 (1.3-6.7); Neutrophils Percent Auto 73.4 % (45.5-73.1); Platelet Count Result 201 k/mm3 (150-375); Red Blood Count 3.43 M/mm3 (4.6-6.20); Red Cell Distribution Width 13.7 % (11.5-14.5); White Blood Count 11.2 K/mm3 (4.5-10.0)
[2022-04-23 07:23] LABS: Alanine Aminotransferase 17 U/L (6-50); Albumin Level 3.2 g/dL (3.5-5.1); Alkaline Phosphatase 51 U/L (38-126); Anion Gap 2 mmol/L (8-16); Aspartate Amino Transferase 37 U/L (17-59); Bilirubin,Total 0.6 mg/dL (0.2-1.3); Blood Urea Nitrogen 24 mg/dL (9-20); Calcium 7.6 mg/dL (8.4-10.2); Carbon Dioxide 26 mmol/L (22-30); Chloride 101 mmol/L (98-107); Estimated CRCL calculation 49 ml/min; Estimated Glomerular Filt Rate > 60; Glucose 99 mg/dL (65-110); Magnesium 2.2 mg/dL (1.6-2.3); Potassium 4.3 mmol/L (3.4-5.0); Sodium 129 mmol/L (137-145)
[2022-04-23] MEDS: SODIUM CHLORIDE 0.9% IV 500 ML 999 ML IV CONT (09:11)
[2022-04-23] MEDS: FONDAPARINUX SODIUM 2.5 MG/0.5 ML SYRINGE SUB-Q (09:12)
[2022-04-23] MEDS: polyethylene glycoL 3350 17 GM POWD.PACK PO (09:12)
[2022-04-23] MEDS: CHOLECALCIFEROL 1,000 UNITS TABLET 2000 UNITS PO (09:12)
[2022-04-23] MEDS: ATORVASTATIN 20 MG TABLET PO (09:13)
[2022-04-23] MEDS: SENNA/DOCUSATE SODIUM TABLET 2 TAB PO ×2 (09:13→17:30)
[2022-04-23] MEDS: CLOPIDOGREL BISULFATE 75 MG TABLET PO (09:13)
[2022-04-23] MEDS: FAMOTIDINE 20 MG TABLET PO (09:14)
--- NOTE | 2022-04-23 10:15 | PM.DS ---
DS: Admitting Diagnosis Discharge Date 04/23/22 1015 Admitting Diagnosis Right femur fracture DS: Discharge Diagnosis Discharge Diagnosis (1) Closed subcapital fracture of right femur: Qualifiers: Encounter type: initial encounter Qualified Code(s): S72.011A - Unspecified intracapsular fracture of right femur, initial encounter for closed fracture Code(s): S72.011A - Unspecified intracapsular fracture of right femur, initial encounter for closed fracture Status: Acute Assessment and Plan: POD 2 Ortho to manage post op care Pain medication and anti-emetics on board. DVT deferred to Ortho PT/OT on board Discussed rehab options for a quick turn around (2) Leukocytosis: Qualifiers: Leukocytosis type: unspecified Qualified Code(s): D72.829 - Elevated white blood cell count, unspecified Code(s): D72.829 - Elevated white blood cell count, unspecified Status: Acute Assessment and Plan: WBC was 15.7 upon arrival, currently trending down 11.6 Most likely reactive to procedure No signs of infection Blood cultures ordered Continue to trend Hold on antibiotics for now (3) Hypertension: Code(s): I10 - Essential (primary) hypertension Status: Acute Assessment and Plan: BP is 106/63 Continue home medications Trend BP Adjust therapy as indicated (4) History of cerebrovascular accident: Code(s): Z86.73 - Personal history of transient ischemic attack (TIA), and cerebral infarction without residual deficits Status: Acute Assessment and Plan: On Plavix at home Resume when deemed appropriate by ortho (5) Fever: Code(s): R50.9 - Fever, unspecified Status: Acute Assessment and Plan: Noted low grade fever of 100.2 post op, currently 97.7 Blood cultures ordered Tylenol on board Probably reactive at this time Continue to trend Resolved (6) Hyponatremia: Code(s): E87.1 - Hypo-osmolality and hyponatremia Status: Acute Assessment and Plan: Sodium 129 Give 500ml of IV fluids Recheck this at 1200pm Consider add tabs Recheck labs in one week DS: Summary Hospital Course Hospital Course: patient 86-year-old male with past medical history of CVA, hypertension, hyperlipidemia presents ED after fall. X-rays noted a right femur fracture. Orthopedics was consulted patient was taken OR for repair. Patient has been working with PT and OT and has been doing okay. He has been doing well sitting in the chair. Patient denies any other complaints including chest pain, shortness a breath, diarrhea, constipation, weakness or fatigue. Patient did state that he was having some pain which has been controlled with p.o. medications. Patient did have evidence of fever and leukocytosis and blood cultures have been drawn however show no growth today. Patient also does not have any signs of infection. Labs and vital signs remained stable. Patient should be able to discharge to SNF For rehab. Patient has been educated about the importance of continuing to move around and working with physical therapy to increase mobility for retained independence. sodium today is slightly low at 129. Probably related to the use of pain medications. Will have patient get labs in 1 week to determine trend. Status at Discharge Functional status at discharge: uses cane/walker Overall status at discharge: patient is progressing back to baseline Time Spent with Patient Time attestation: Total time spent providing and/or coordinating discharge services: 36 minutes Time spent: Greater than 30 minutes Specific discharge activities: Diagnostic testing, chart review, developing a treatment plan, education, care coordination documentation, physical exam, result review Exam Narrative: General: well-nourished, well-appe
--- NOTE | 2022-04-23 10:15 | P.DS_ITS ---
DS: Admitting Diagnosis Discharge Date 04/23/22 1015 Admitting Diagnosis Right femur fracture DS: Discharge Diagnosis Discharge Diagnosis (1) Closed subcapital fracture of right femur: Qualifiers: Encounter type: initial encounter Qualified Code(s): S72.011A - Unspecified intracapsular fracture of right femur, initial encounter for closed fracture Code(s): S72.011A - Unspecified intracapsular fracture of right femur, initial encounter for closed fracture Status: Acute Assessment and Plan: * POD 2 * Ortho to manage post op care * Pain medication and anti-emetics on board. * DVT deferred to Ortho * PT/OT on board * Discussed rehab options for a quick turn around (2) Leukocytosis: Qualifiers: Leukocytosis type: unspecified Qualified Code(s): D72.829 - Elevated white blood cell count, unspecified Code(s): D72.829 - Elevated white blood cell count, unspecified Status: Acute Assessment and Plan: * WBC was 15.7 upon arrival, currently trending down 11.6 * Most likely reactive to procedure * No signs of infection * Blood cultures ordered * Continue to trend * Hold on antibiotics for now (3) Hypertension: Code(s): I10 - Essential (primary) hypertension Status: Acute Assessment and Plan: * BP is 106/63 * Continue home medications * Trend BP * Adjust therapy as indicated (4) History of cerebrovascular accident: Code(s): Z86.73 - Personal history of transient ischemic attack (TIA), and cerebral infarction without residual deficits Status: Acute Assessment and Plan: * On Plavix at home * Resume when deemed appropriate by ortho (5) Fever: Code(s): R50.9 - Fever, unspecified Status: Acute Assessment and Plan: * Noted low grade fever of 100.2 post op, currently 97.7 * Blood cultures ordered * Tylenol on board * Probably reactive at this time * Continue to trend * Resolved (6) Hyponatremia: Code(s): E87.1 - Hypo-osmolality and hyponatremia Status: Acute Assessment and Plan: * Sodium 129 * Give 500ml of IV fluids * Recheck this at 1200pm * Consider add tabs * Recheck labs in one week DS: Summary Hospital Course Hospital Course: patient 86-year-old male with past medical history of CVA, hypertension, hyperlipidemia presents ED after fall. X-rays noted a right femur fracture. Orthopedics was consulted patient was taken OR for repair. Patient has been working with PT and OT and has been doing okay. He has been doing well sitting in the chair. Patient denies any other complaints including chest pain, shortness a breath, diarrhea, constipation, weakness or fatigue. Patient did state that he was having some pain which has been controlled with p.o. medications. Patient did have evidence of fever and leukocytosis and blood cultures have been drawn however show no growth today. Patient also does not have any signs of infection. Labs and vital signs remained stable. Patient should be able to discharge to SNF For rehab. Patient has been educated about the importance of continuing to move around and working with physical therapy to increase mobility for retained independence. sodium today is slightly low at 129. Probably related to the use of pain medications. Will have pa
--- NOTE | 2022-04-23 11:03 | PM.PNORT ---
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 WBAT. Walker. HIGH FALL RISK. Continue pain control. Ice hip. Protect skin. DVT prophylaxis with resumed Plavix. Start Arixtra. SCDs. Incentive Spirometry Use reviewed. Monitor Dressing. Change prior to discharge. Bowel Regimen. Dispo: SNF when cleared by Medicine. (2) Closed subcapital fracture of right femur: Qualifiers: Encounter type: initial encounter Qualified Code(s): S72.011A - Unspecified intracapsular fracture of right femur, initial encounter for closed fracture Code(s): S72.011A - Unspecified intracapsular fracture of right femur, initial encounter for closed fracture Status: Acute Plan Reviewed postoperative course, labs, radiographs and plan with attending MD, Dr. Yo. Agrees with current plan as outlined above. No further recommendations. Subjective Subjective Date/Time Seen: 04/23/22 11:03 Post Op day: 2 Interval history: POD #2: Right Hip Bipolar No new complaints. Pain tolerated well. Hopeful for discharge to SNF today. Review of Systems Review of Systems: All systems reviewed & are unremarkable except as noted in HPI and below Constitutional: Constitutional: Denies chills, Denies fever(s), Denies headache(s), Denies lethargy and Reports weakness ENT: Denies headache(s) Cardiovascular: Cardiovascular: Denies chest pain, Denies diaphoresis, Denies lightheadedness, Denies palpitations, Denies dyspnea and Denies dyspnea on exertion Respiratory: Respiratory: Denies cough, Denies dyspnea and Denies dyspnea on exertion Gastrointestinal: Gastrointestinal: Denies constipation, Denies diarrhea, Denies nausea and Denies vomiting Genitourinary: Genitourinary: Denies dysuria, Reports urinary frequency and Denies urinary hesitancy Musculoskeletal: Musculoskeletal: Reports joint swelling (Right Hip ) and Reports limited range of motion (Right Hip due to recent surgery ) Neurologic: Denies headache(s) and Reports weakness Endocrine: Endocrine: Denies palpitations Objective Data Vital Signs Vital Signs: Vital Signs - 24 hr 04/22/22 14:00 04/22/22 20:00 12/15/22 22:00 Temperature 36.6 C 37.0 C Pulse Rate 81 78 Respiratory Rate 16 18 Blood Pressure 103/59 L 129/68 Pulse Oximetry 95 99 Oxygen Delivery Room Air 04/23/22 06:00 Temperature 36.5 C Pulse Rate 84 Respiratory Rate 20 Blood Pressure 106/63 Pulse Oximetry 96 Oxygen Delivery Intake/Output Intake/Output: Intake & Output 04/20/22 04/21/22 04/22/22 04/23/22 23:59 23:59 23:59 23:59 Intake Total 527 197 6382 550 Output Total 1100 750 500 Balance 690 -200 430 50 Meds/Results Medications: Active Medications Generic Name Dose Route Start Last Admin Trade Name Freq PRN Reason Stop Dose Admin Acetaminophen 650 mg 04/21/22 13:33 04/22/22 17:09 Acetaminophen 325 Mg Tablet PO 650 mg Q6H PRN Administration Mild Pain (1-3) or Fever Hydrocodone Bitart/Acetaminophen 1 tab 04/21/22 13:33 04/23/22 05:55 Hydrocodone/Acetaminophen (*Crx) 7.5-325 Mg Tablet PO 1 tab Q3H PRN Administration Pain Rated 4-6 Amlodipine Besylate 10 mg 04/21/22 09:00 04/22/22 10:03 Amlodipine Besylate 5 Mg Tablet PO 10 mg DAILY SIDRA Administration Atorvastatin Calcium 20 mg 04/21/22 09:00 04/23/22 09:13 Atorvastatin 20 Mg Tablet PO 20 mg DAILY SIDRA Administration Clopidogrel Bisulfate 75 mg 04/22/22 09:00 04/23/22 09:13 Clopidogrel Bisulfate 75 Mg Tablet PO 75 mg DAILY SIDRA Administration Diazepam 5 mg 04/21/22 13:33 Diazepam (*Crx) 5 Mg Tablet PO Q8H PRN Muscle Spasm Famotidine 20 mg 04/21/22 21:00 04/23/22 09:14 Famotidine 20 Mg Tablet PO 20 mg
[2022-04-23 14:00] VITALS: BP 120/55; PULSE 104; RESP 16; TEMP 36.1; O2SAT 99
[2022-04-23 15:52] LABS: EDCOVIDSCREEN Negative (Negative)
[2022-04-23] MEDS: ACETAMINOPHEN 325 MG TABLET 650 MG PO (17:27)
[2022-04-23 20:00] VITALS: O2SAT 99
== END 2022-04-23 20:00 | DRG 522 ==
LOC: ANHED 12:37 → ANH3MEDSUR 12:47
PROVIDERS: Orthopaedic Surgery; Physician Assistant; Admitting Provider Internal Medicine; Emergency Provider Emergency Medicine; PCP Internal Medicine; Visit Provider Nurse Practitioner
PROC: 0SRR01A Replacement of Right Hip Joint, Femoral Surface with Metal Synthetic Substitute, Uncemented, Open Approach (ICD-10-PCS; CPT 27125; principal; 2022-04-21 09:00)
DX: S72.011A Unspecified intracapsular fracture of right femur, initial encounter for closed fracture (principal); E87.1 Hypo-osmolality and hyponatremia; W10.8XXA Fall (on) (from) other stairs and steps, initial encounter; R50.82 Postprocedural fever; Z20.822 Contact with and (suspected) exposure to COVID-19; N40.0 Benign prostatic hyperplasia without lower urinary tract symptoms; I10 Essential (primary) hypertension; D72.829 Elevated white blood cell count, unspecified; E78.5 Hyperlipidemia, unspecified; Z98.42 Cataract extraction status, left eye; Z98.41 Cataract extraction status, right eye; Z90.49 Acquired absence of other specified parts of digestive tract; Z86.73 Personal history of transient ischemic attack (TIA), and cerebral infarction without residual deficits
CPT/HCPCS: 36415; 71045; 73502; 80048; 80053; 81001; 83735; 85025; 87040; 87426; 87636; 93005; 96365; 96375; 97110; 97116; 97161; 97165; 97530; 97535; 99285; A9270; C1776; C9803; G0378; J0131; J0171; J0330; J0690; J1100; J1652; J1885; J2270; J2405; J2704; J2795; J3010; J7040; J7120

== ENCOUNTER 2022-10-07 10:06 | Outpatient (CLI) | payer MEDICARE, SELFPAY ==
[2022-10-07 10:43] LABS: Alanine Aminotransferase 23 U/L (6-50); Alkaline Phosphatase 75 U/L (38-126); Anion Gap 5 mmol/L (8-16); Aspartate Amino Transferase 31 U/L (17-59); Bilirubin,Total 0.5 mg/dL (0.2-1.3); Blood Urea Nitrogen 21 mg/dL (9-20); Calcium 8.7 mg/dL (8.4-10.2); Carbon Dioxide 27 mmol/L (22-30); Chloride 106 mmol/L (98-107); Cholesterol 121 mg/dL (0-200); Estimated Glomerular Filt Rate > 60; Glucose 92 mg/dL (65-110); HDL Direct 54 mg/dL; Potassium 4.1 mmol/L (3.4-5.0); Sodium 138 mmol/L (137-145); Triglycerides 48 mg/dL (<150)
[2022-10-07 10:43] LABS: Hemoglobin A1C 5.9 % (<5.7)
[2022-10-07 10:54] LABS: LDL Cholesterol Direct 52 mg/dL
[2022-10-07 10:59] LABS: Vitamin D 25 Hydroxy 35.7 ng/mL
== END 2022-10-07 10:07 | disposition home or self-care (01) ==
PROVIDERS: PCP Nurse Practitioner; Visit Provider Nurse Practitioner
DX: R73.01 Impaired fasting glucose (principal); E55.9 Vitamin D deficiency, unspecified; E78.5 Hyperlipidemia, unspecified
CPT/HCPCS: 36415; 80053; 80061; 82306; 83036

== ENCOUNTER 2022-12-09 16:14 | Outpatient (CLI) | payer MEDICARE, SELFPAY ==
[2022-12-09 17:58] LABS: IFOB Positive Control Positive; Immunochemical Fecal Occult Bl Negative (N)
== END 2022-12-09 16:15 | disposition home or self-care (01) ==
PROVIDERS: PCP Nurse Practitioner Family; Visit Provider Nurse Practitioner Family
DX: R19.7 Diarrhea, unspecified (principal)
CPT/HCPCS: 82274; 87045; 87269; 87427; 87449

== ENCOUNTER 2023-01-24 08:59 | Outpatient (CLI) | payer MEDICARE, SELFPAY ==
--- NOTE | ~2023-01-24 | DEXA_ITS ---
Bone Density Report Name: ANTONIO BOB Age: 87 Sex: Male Ethnicity: White Date of : 1935 Indication: screening for osteoporosis; height loss; prior fracture; postmenopausal Referring Provider: MATTI NAHT Study: Bone densitometry was performed. Exam Date: January 24, 2023 Accession number: [id number] Bone Density: Region BMD T-score Z-score Classification AP Spine(L1, L2, L3) 1.217 1.3 2.6 Normal Femoral Neck (Left) 0.680 -1.8 -0.1 Osteopenia Total Hip (Left) 0.854 -1.2 0.1 Osteopenia World Health Organization criteria for BMD impression classify patients as: Normal (T-score at or above -1.0), Osteopenia (T-score between -1.0 and -2.5), or Osteoporosis (T-score at or below -2.5). 10-year Fracture Risk: FRAX not reported because: Prior hip or vertebral fracture Clinical Information Provided by Patient: Have had a previous hip or vertebral fracture Has had a low trauma fracture Patient maximum height was 70 Impression: The patient has low bone mass, based on the Left Femoral Neck T-score. The patient has risk factors, including: previous fracture. Discussion: INCREASED RISK OF FRACTURE DUE TO HISTORY OF LOW TRAUMA FRACTURE. The patient's previous fracture puts the patient at high risk of a future fracture. In untreated patients, the risk of osteoporotic fracture increases approximately two-fold for each 1.0 SD decrease in T-score. Low bone density is not the only risk factor for fracture; also consider factors such as patient's age, frailty or poor health, risk of falling, risk of injury, previous osteoporotic fracture, family history of osteoporosis, cigarette smoking, low body weight, etc. Not everyone with a low trauma fracture has osteoporosis; osteomalacia and other metabolic bone disorders should also be considered. Patients who have osteoporosis should be evaluated for specific diseases and conditions (secondary causes) that may cause or contribute to bone loss and fracture risk. National Osteoporosis Foundation (NOF) recommends pharmacologic intervention for patients with a prior low trauma hip or vertebral fracture regardless of BMD T-score. The patient should follow a healthful lifestyle (good nutrition with adequate calcium and vitamin D, and appropriate weight-bearing exercise). Follow-Up: Consider a repeat BMD and Vertebral Fracture Assessment (VFA) exam in 2 years or sooner if medically necessary, to reassess this patient's status. Reported by: SANAZ on 01/24/2023 9:25:00 AM. Reviewed, dictated and finalized at location A. TARA
== END 2023-01-24 09:00 | disposition home or self-care (01) ==
LOC: ANHIMG 09:00
PROVIDERS: PCP Family Medicine; Visit Provider Family Medicine
DX: Z51.81 Encounter for therapeutic drug level monitoring (principal); Z79.52 Long term (current) use of systemic steroids; M85.852 Other specified disorders of bone density and structure, left thigh
CPT/HCPCS: 77080

== ENCOUNTER 2023-07-06 09:47 | Outpatient (CLI) | payer MEDICARE, SELFPAY ==
[2023-07-06 09:31] LABS: Hematocrit 38.3 % (42.0-52.0); Hemoglobin 12.4 g/dL (14.0-18.0); Mean Corpuscular HGB Conc 32.4 g/dl (32-36); Mean Corpuscular Hemoglobin 31.6 pg (26-34); Mean Corpuscular Volume 97.5 fl (80-100); Mean Platelet Volume 9.3 fl (7.4-10.4); Platelet Count Result 241 k/mm3 (150-375); Red Blood Count 3.93 M/mm3 (4.6-6.20); White Blood Count 7.9 K/mm3 (4.5-10.0)
[2023-07-06 09:47] LABS: Alanine Aminotransferase 23 U/L (6-50); Albumin Level 3.9 g/dL (3.5-5.1); Alkaline Phosphatase 63 U/L (38-126); Anion Gap 2 mmol/L (8-16); Aspartate Amino Transferase 27 U/L (17-59); Bilirubin,Total 0.6 mg/dL (0.2-1.3); Blood Urea Nitrogen 18 mg/dL (9-20); Calcium 9.1 mg/dL (8.4-10.2); Carbon Dioxide 28 mmol/L (22-30); Chloride 107 mmol/L (98-107); Cholesterol 112 mg/dL (0-200); Estimated Glomerular Filt Rate > 60; Glucose 95 mg/dL (65-110); HDL Direct 44 mg/dL; Potassium 4.7 mmol/L (3.4-5.0); Sodium 137 mmol/L (137-145); Triglycerides 70 mg/dL (<150)
[2023-07-06 09:58] LABS: LDL Cholesterol Direct 57 mg/dL
[2023-07-06 13:15] LABS: Hemoglobin A1C 5.9 % (<5.7)
== END 2023-07-06 09:48 | disposition home or self-care (01) ==
LOC: ANHLAB 09:47
PROVIDERS: PCP Family Medicine; Visit Provider Family Medicine
DX: N52.8 Other male erectile dysfunction (principal); N40.0 Benign prostatic hyperplasia without lower urinary tract symptoms; E55.9 Vitamin D deficiency, unspecified; E78.00 Pure hypercholesterolemia, unspecified; I10 Essential (primary) hypertension; J30.2 Other seasonal allergic rhinitis; R73.01 Impaired fasting glucose
CPT/HCPCS: 36415; 80053; 80061; 83036; 85027

== ENCOUNTER 2024-01-17 10:08 | Outpatient (CLI) | payer MEDICARE, SELFPAY ==
[2024-01-17 10:26] LABS: Hematocrit 41.5 % (42.0-52.0); Hemoglobin 13.7 g/dL (14.0-18.0); Mean Corpuscular Hemoglobin 32.2 pg (26-34); Mean Corpuscular Volume 97.4 fl (80-100); Mean Platelet Volume 9.3 fl (7.4-10.4); Platelet Count Result 251 k/mm3 (150-375); Red Blood Count 4.26 M/mm3 (4.6-6.20); Red Cell Distribution Width 13.4 % (11.5-14.5); White Blood Count 7.5 K/mm3 (4.5-10.0)
[2024-01-17 10:46] LABS: Alanine Aminotransferase 18 U/L (6-50); Albumin Level 4.4 g/dL (3.5-5.1); Alkaline Phosphatase 74 U/L (38-126); Anion Gap 8 mmol/L (4-12); Aspartate Amino Transferase 29 U/L (17-59); Bilirubin,Total 0.7 mg/dL (0.2-1.3); Blood Urea Nitrogen 20 mg/dL (9-20); Calcium 9.2 mg/dL (8.4-10.2); Carbon Dioxide 27 mmol/L (22-30); Chloride 102 mmol/L (98-107); Cholesterol 134 mg/dL (0-200); Estimated Glomerular Filt Rate > 60; Glucose 93 mg/dL (65-110); HDL Direct 56 mg/dL; Potassium 4.5 mmol/L (3.4-5.0); Sodium 137 mmol/L (137-145); Triglycerides 65 mg/dL (<150)
[2024-01-17 10:57] LABS: LDL Cholesterol Direct 55 mg/dL
[2024-01-17 11:31] LABS: Vitamin D 25 Hydroxy 40.7 ng/mL
== END 2024-01-17 10:09 | disposition home or self-care (01) ==
PROVIDERS: PCP Family Medicine; Visit Provider Family Medicine
DX: E55.9 Vitamin D deficiency, unspecified (principal); I10 Essential (primary) hypertension; N52.9 Male erectile dysfunction, unspecified
CPT/HCPCS: 36415; 80053; 80061; 82306; 85027

== ENCOUNTER 2024-03-01 21:01 | Emergency (ER) | payer MEDICARE, SELFPAY ==
--- NOTE | ~2024-03-01 | CT_ITS ---
EXAMINATION: CT brain wo con DATE: 03/01/2024 22:00 INDICATION: Headache. Hypertension. TECHNIQUE: Computed tomography (CT) of the head was performed without intravenous contrast. Sagittal and coronal reconstructions were performed. The mA was adjusted according to patient size. Iterative reconstruction technique was employed. The dose-length product was 681.00 mGy-cm. COMPARISON: head CT dated 04/27/2019 and brain MR dated 04/28/2019 FINDINGS: No acute intracranial hemorrhage, acute infarction or abnormal extra axial fluid collection. There is moderate scattered white matter hypoattenuation consistent with chronic small vessel ischemic diseas e. Symmetric prominence of the sulci and ventricles consistent with moderate age-appropriate diffuse cerebral volume loss. No mass/mass effect. Changes of bilateral intraocular lens replacement. The orb its, paranasal sinuses and mastoid air cells are normal. Intracranial calcified cerebral atherosclero sis is noted. IMPRESSION: 1. No acute intracranial process. 2. Age-related changes including moderate diffuse volume loss and moderate scattered white matter hyp oattenuation consistent with chronic small vessel ischemic disease. Reviewed, dictated and finalized at location A. IMPRESSION: 1. No acute intracranial process. 2. Age-related changes including moderate diffuse volume loss and moderate scat tered white matter hypoattenuation consistent with chronic small vessel ischemi c disease.
[2024-03-01 21:02] VITALS: BP 171/86; PULSE 90; RESP 19; TEMP 36.6; O2SAT 98
[2024-03-01 21:17] VITALS: BP 154/80; PULSE 83; RESP 15; O2SAT 97
--- NOTE | 2024-03-01 21:17 | ECG_ITS ---
Test Date: 2024-03-01 21:20:57 Measurements Intervals [place] Rate: 77 P: -40 GA: 172 QRS: -23 QRSD: 126 T: 52 QT: 372 QTc: 421 Interpretive Statements SINUS RHYTHM No previous ECG available for comparison Electronically Signed On 03-02-2024 15:30:20 CDT by Taz Ross M.D.
[2024-03-01 21:18] VITALS: BP 154/80; PULSE 83; RESP 15; O2SAT 98
[2024-03-01 21:24] LABS: Basophils Absolute Auto 0.1 K/mm3 (0.0-0.1); Basophils Percent Auto 0.6 % (0.2-1.2); Eosinophils Absolute Auto 0.2 K/mm3 (0-0.3); Eosinophils Percent Auto 1.5 % (0-4.4); Hematocrit 40.4 % (42.0-52.0); Hemoglobin 13.7 g/dL (14.0-18.0); Immature Granulocyte Absolute 0.02 K/mm3 (0.00-0.031); Immature Granulocyte Percent A 0.2 % (0-0.5); Lymphocytes Absolute Auto 1.53 K/mm3 (0.9-3.2); Lymphocytes Percent Auto 15.2 % (18.3-44.2); Mean Corpuscular HGB Conc 33.9 g/dl (32-36); Mean Corpuscular Hemoglobin 32.8 pg (26-34); Mean Corpuscular Volume 96.7 fl (80-100); Mean Platelet Volume 9.1 fl (7.4-10.4); Monocytes Absolute Auto 1.1 K/mm3 (0.1-0.6); Monocytes Percent Auto 10.4 % (2.6-8.5); Neutrophils Absolute Auto 7.3 K/mm3 (1.3-6.7); Neutrophils Percent Auto 72.1 % (45.5-73.1); Platelet Count Result 268 k/mm3 (150-375); Red Blood Count 4.18 M/mm3 (4.6-6.20); Red Cell Distribution Width 13.2 % (11.5-14.5); White Blood Count 10.1 K/mm3 (4.5-10.0)
--- NOTE | 2024-03-01 21:30 | ED_ITS ---
HPI - Recheck/Abnormal Lab/Rx General Chief Complaint: Recheck/Abnormal Lab/Rx Stated Complaint: high blood pressure 190/96 Time Seen by Provider: 03/01/24 21:10 History of Present Illness HPI narrative: 88-year-old male with a history of CVA, hypertension, hypercholesterolemia presents to the emergency department for elevated blood pressure. Patient states after eating dinner tonight he began having a headache which is abnormal for him. States he took his blood pressure and the highest was 190/70 which concerned him. He contacted family and was brought to the ED for further e valuation. Upon my evaluation he states he has a very mild residual frontal headache, otherwise feels at his baseline. He denies chest pain or shortness of breath, vision changes, focal numbness or weakness, head injury or trauma. He takes amlodipine 5 mg daily and lisinopril 10 mg daily which he has been taking as directed. He states that he took an extra dose of amlodipine today hoping that would bring his blood pressure down. 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 No issues since 2018. Surgical History Surgical History History of appendectomy History of bilateral cataract extraction History of surgical removal of lesion x2 History of tonsillectomy Family History Family History Father Cerebrovascular accident Had a stroke age 77 age 82 Mother Cerebrovascular accident Sounds like she actually had head trauma perhaps a subdural hematoma and stroke stroke symptoms as result, age 76 Other Family history of arthritis Hypertension Social History Social History Social History: . Active in alevism. Has 3 sons. Smoking status: Never smoker Second hand tobacco smoke exposure: No Alcohol intake: never Substance use: never Substance use type: does not use Lack of Transportation: No Lack of Food: Never True Current Housing: I Have Housing Concerned About Future Housing: No Difficulty Paying Gas/Electric Bills: No Difficulty Paying for Meds: No Currently Unemployed: No Education: Master's Degree or Higher Difficulty w/ Childcare or Family Care: No Living arrangements: with family Additional living arrangements comments: Lives with spouse in [place]. 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 Spiritual care concerns: No Agree to blood products: Yes Exam Narrative: GENERAL: Well-appearing, well-nourished, and in no acute distress. HEAD: Normocephalic, atraumatic. EYES: PERRLA and EOMI. ENT: Nares clear, no rhinorrhea or epistaxis. Mucous membranes moist. NECK: Supple. CHEST: Clear to auscultation. No respiratory distress. HEART: Regular rate and rhythm. Holosystolic murmur auscultated on both the right and left sternal border ABDOMEN: Soft, nontender, nondistended, normal active bowel sounds. EXTREMITIES: Normal range of motion. No edema. SKIN: Warm, dry, no rash. NEURO: No focal deficits. Alert and oriented x3 . Cranial nerves 2-12 intact. Strength 5/5 BUE and BLE. Sensation intact throughout. Course Vital Signs Vital signs: Vital Signs Temperature 97.9 F 03/01/24 21:02 Pulse Rate 90 03/01/24 21:02 Respiratory Rate 19 03/01/24 21:02 Blood Pressure 171/86 H 03/01/24 21:02 Pulse Oximetry 98 03/01/24 21:02 Oxygen Delivery Room Air 03/01/24 21:02 Temperature 97.9 F 03/01/24 21:02 Pulse Rate 75 03/01/24 21:47 Respiratory Rate 21 H 03/01/24 21:47 Blood Pressure 160/79 H 03/01/24 21:47 Pulse Oximetry 97 03/01/24 21:47 Oxygen Delivery Room Air 03/01/24 21:02 MDM - Recheck/Abnormal Lab/Rx MDM Narrative Medical decision making narrative: 88-year-old male with history of hypertension presents to the emergency department for elevated blood pressure this evening. Patient had a mild headache which caused him to check his blood pressure from 190/70. States the headache is mild and residual now, otherwise he has no complaints. He is ne urovascularly intact. His triage vitals are significant for blood pressure 171/86 which is improved on my evaluation of 154/80. Exam is significant for the above. Notably he has a holosystolic murmur, per chart review his most recent echocardiogram in 2019 revealed mitral regurgitation. Lab work was ordered by nursing staff including CBC, chemistry troponin. CBC with chronic anemia at baseline. Chemistries are unremarkable. EKG reveals sinus rhythm with Q-waves in the septal leads, no ST elevations or depressions, normal QTC. Troponin is undetectable. CT brain shows no acute intracranial process. Patient received Tylenol and his headache is improved. His blood pressure is now 141/78 without intervention. We discussed the need for continuation of his antihypertensives as prescribed, blood pressure monitoring and close PCP follow-up. strict ED return precautions discussed. He and his son at bedside are agreeable with the plan verbalized understanding. Discharged in stable condition. Lab Data 03/01/24 21:19 03/01/24 21:19 Labs: Lab Results 03/01/24 Range/Units 21:19 WBC 10.1 H (4.5-10.0) K/mm3 RBC 4.18 L (4.6-6.20) M/mm3 Hgb 13.7 L (14.0-18.0) g/dL Hct 40.4 L (42.0-52.0) % MCV 96.7 (80-100) fl MCH 32.8 (26-34) pg MCHC 33.9 (32-36) g/dl RDW 13.2 (11.5-14.5) % Plt Count 268 (150-375) k/mm3 MPV 9.1 (7.4-10.4) fl Immature Gran % (Auto) 0.2 (0-0.5) % Neut % (Auto) 72.1 (45.5-73.1) % Lymph % (Auto) 15.2 L (18.3-44.2) % [place] % (Auto) 10.4 H (2.6-8.5) % Eos % (Auto) 1.5 (0-4.4) % Baso % (Auto) 0.6 (0.2-1.2) % Lymph # (Auto) 1.53 (0.9-3.2) K/mm3 [place] # (Auto) 1.1 H (0.1-0.6) K/mm3 Eos # (Auto) 0.2 (0-0.3) K/mm3 Baso # (Auto) 0.1 (0.0-0.1) K/mm3 Abs Immat Gran (auto) 0.02 (0.00-0.031) K/mm3 Absolute Neuts (auto) 7.3 H (1.3-6.7) K/mm3 Absolute Nucleated RBC 0.000 (0.0-0.012) K/mm3 Nucleated RBC % 0.0 (0.0-0.2) % Sodium 135 L (137-145) mmol/L Potassium 4.3 (3.4-5.0) mmol/L Chloride 103 (98-107) mmol/L Carbon Dioxide 24 (22-30) mmol/L Anion Gap 8 (4-12) mmol/L BUN 20 (9-20) mg/dL Creatinine 1.10 (0.7-1.3) mg/dL Estim Creat Clear Calc 43 ml/min Estimated GFR > 60 (59 - ) Glucose 105 (65-110) mg/dL Calcium 9.1 (8.4-10.2) mg/dL Total Bilirubin 0.5 (0.2-1.3) mg/dL AST 31 (17-59) U/L ALT 20 (6-50) U/L Alkaline Phosphatase 99 (38-126) U/L Troponin I < 0.012 (0.000-0.034) ng/mL Total Protein 8.0 (6.3-8.2) g/dL Albumin 4.4 (3.5-5.1) g/dL Discharge Plan Discharge Clinical Impression: Hypertension Qualifiers: Hypertension type: unspecified Qualified Code(s): I10 - Essential (primary) hypertension Patient Disposition: Home, Self-Care Condition: Stable Instructions: Antibiotic Form, Hypertension (ED) Additional Instructions: Please keep a blood pressure log and follow up closely the primary care provider. Please continue taking her antihypertensives as directed. Return to the emergency department if you develop vision changes, focal numbness or weakness, chest pain or shortness of breath, or other concerning symptoms. Prescriptions: No Action lisinopril 10 mg tablet 10 mg PO DAILY Qty: 90 1RF amlodipine 5 mg tablet 5 mg PO DAILY clopidogrel 75 mg tablet 75 mg PO DAILY Qty: 90 1RF fluticasone propionate 50 mcg/actuation spray,suspension See Rx Instructions .ROUTE .COMPLEX Qty: 48 1RF Dose Instruction: SPRAY 2 SPRAYS INTO EACH NOSTRIL EVERY DAY Rx Instructions: SPRAY 2 SPRAYS INTO EACH NOSTRIL EVERY DAY atorvastatin 20 mg tablet 20 mg PO DAILY Qty: 90 1RF Follow-up/Referrals: Trey Peterson MD [Primary Care Provider] -
[2024-03-01 21:32] VITALS: BP 164/76; PULSE 85; RESP 31
[2024-03-01 21:35] LABS: Alanine Aminotransferase 20 U/L (6-50); Albumin Level 4.4 g/dL (3.5-5.1); Alkaline Phosphatase 99 U/L (38-126); Anion Gap 8 mmol/L (4-12); Aspartate Amino Transferase 31 U/L (17-59); Bilirubin,Total 0.5 mg/dL (0.2-1.3); Blood Urea Nitrogen 20 mg/dL (9-20); Calcium 9.1 mg/dL (8.4-10.2); Carbon Dioxide 24 mmol/L (22-30); Chloride 103 mmol/L (98-107); Estimated CRCL calculation 43 ml/min; Estimated Glomerular Filt Rate > 60; Glucose 105 mg/dL (65-110); Potassium 4.3 mmol/L (3.4-5.0); Sodium 135 mmol/L (137-145)
[2024-03-01] MEDS: ACETAMINOPHEN 325 MG TABLET 650 MG PO (21:38)
[2024-03-01 21:46] LABS: Troponin I < 0.012 ng/mL (0.000-0.034)
[2024-03-01 21:47] VITALS: BP 160/79; PULSE 75; RESP 21; O2SAT 97
[2024-03-01 22:44] VITALS: BP 151/79; PULSE 74; RESP 18; O2SAT 97
== END 2024-03-01 22:45 | disposition home or self-care (01) ==
PROVIDERS: Emergency Provider Physician Assistant; PCP Family Medicine
DX: I10 Essential (primary) hypertension (principal); E78.00 Pure hypercholesterolemia, unspecified; Z86.73 Personal history of transient ischemic attack (TIA), and cerebral infarction without residual deficits
CPT/HCPCS: 36415; 70450; 80053; 84484; 85025; 93005; 99284; A9270

== ENCOUNTER 2024-06-26 07:19 | Outpatient (CLI) | payer MEDICARE, SELFPAY ==
--- NOTE | ~2024-06-26 | US_ITS ---
Limited Abdominal Sonogram: Real-time sonographic imaging of the right upper quadrant was performed. Clinical History: Other disease of liver Findings: The liver demonstrates normal background echotexture. No intrahepatic biliary dilatation. There is an exophytic 9.1 x 8.4 x 7.3 cm complex cystic mass probably arising from the liver. Main po rtal vein demonstrates normal direction of flow. The gallbladder is well distended, and appears arnold l with no evidence of gallstone or wall thickening. The common bile duct measures 3 mm. The visualiz ed pancreas, aorta, and IVC are unremarkable. Impression: 9.1 x 8.4 x 7.3 cm complex cystic mass probably arising from the liver. This is indeterminate. Multip hase pre and postcontrast CT or MR imaging recommended to further assess. Reviewed, dictated and finalized at [facility]. PROTECTION SPECIALIST Impression: 9.1 x 8.4 x 7.3 cm complex cystic mass probably arising from the liver. This is indeterminate. Multiphase pre and postcontrast CT or MR imaging recommended to further assess.
--- OUTSIDE RECORDS SUMMARY | 2024-06-26 07:28 | XMS_ITS | Referral Summary ---
Author Organization [facility] [address] Address [address] [place] [address] Care Team Providers Care Bag Machine Operator Helper Name Role Phone Trey Peterson MD Primary Care Provider [phone] Encounters Date Type Department Care Team Description 06/05/2024 3:00 PM NAVY FIGHTER PILOT Ancillary Procedure [facility] Cardiology [address] [place] [address] Aortic valve sclerosis from Last 3 Months Allergies Active Allergy Reactions Criticality Noted Date Comments Metoprolol Rash Medium 04/26/2019 Medications atorvastatin (LIPITOR) 20 mg tablet Take 1 tablet (20 mg total) by mouth daily 0 9 Active clopidogreL (PLAVIX) 75 mg tablet Take 1 tablet (75 mg total) by mouth daily Active fluticasone (VERAMYST) 27.5 mcg/actuation nasal sprayIndication s:Allergic Rhinitis Administer 2 sprays into each nostril daily Active lisinopriL (PRINIVIL,ZESTR IL) 10 mg tablet Take 1 tablet (10 mg total) by mouth daily Active cetirizine (ZyrTEC) 10 mg tablet Take 1 tablet (10 mg total) by mouth as needed Active cholecalciferol , vitamin D3, (VITAMIN D3 ORAL) Take 50 mcg by mouth Active tadalafiL (CIALIS) 20 mg tablet Take 1 tablet (20 mg total) by mouth daily as needed 4 Active amLODIPine (NORVASC) 5 mg tablet TAKE 2 TABLETS BY MOUTH EVERY DAY 180 tablet 5 Active Active Problems Problem Noted Date Diagnosed Date H/O: CVA (cerebrovascular accident) 02/16/2023 Mixed hyperlipidemia 05/26/2021 Medication side effect 11/17/2020 Visit for wound check 10/29/2019 Status post placement of implantable loop record er 10/22/2019 Overview (10/22/2019): [employer] Implantable Loop Recorder. Dx; Recurrent Syncope, NSVT, PVC's, PAC's. DOI 10/22/2019-[facility]. [employer] remote monitoring. NSVT (nonsustained ventricular tachycardia) 01/07 PVC's (premature ventricular contractions) 01/19 PSVT (paroxysmal supraventricular tachycardia) 0 01/19/2019 Mitral valve regurgitation 01/19/2019 Essential hypertension 11/03/2018 Carotid atherosclerosis, bilateral 11/03/2018 History of syncope 11/03/2018 Resolved Problems Problem Noted Date Diagnosed Date Resolved Date Dyslipidemia 01/19/2019 11/30/2021 Social History Tobacco Use Types Packs/Day Years Used Date Smoking Tobacco: Never Smokeless Tobacco: Never Tobacco Cessation:Counseling Given: Not Answered Alcohol Use Standard Drinks/Week Comments Never 0 (1 standard drink = 0.6 oz pur e alcohol) Sex and Gender Information Value Date Recorded Sex Assigned at Not on file Legal Sex Male 12:05 AM NAVY FIGHTER PILOT Gender Identity Male 10/23/2019 10:54 PM CDT Sexual Orientation Not on file Last Filed Vital Signs Vital Sign Reading Time Taken Comments Blood Pressure 118/52 03/21/2024 1:45 PM NAVY FIGHTER PILOT Pulse 73 03/21/2024 1:45 PM NAVY FIGHTER PILOT Temperature - - Respiratory Rate - - Oxygen Saturation 97% 03/21/2024 1:45 PM NAVY FIGHTER PILOT Inhaled Oxygen Concentration - - Weight 78.5 kg (173 lb) 03/21/2024 1:45 PM NAVY FIGHTER PILOT Height 177.8 cm (5' 10 ) 03/21/2024 1:45 PM NAVY FIGHTER PILOT Body Mass Index 24.82 03/21/2024 1:45 PM NAVY FIGHTER PILOT Plan of Treatment Not on file Procedures Procedure Name Priority Date/Time Associated Diagnosis Comments TRANSTHORACIC ECHO (TTE) COMPLETE W DOPPLER/CF WO CONTRAST Routine 06/05/2024 3:41 PM NAVY FIGHTER PILOT Aortic valve sclerosis from Last 3 Months Results * TRANSTHORACIC ECHO (TTE) COMPLETE W DOPPLER/CF WO CONTRAST (06/05/2024 3:41 PM NAVY FIGHTER PILOT) LV EF 70-75 % CONS SCIMAGE Anatomical Region Laterality Modality Ultrasound 06/05/2024 3:07 PM NAVY FIGHTER PILOT Narrative 06/06/2024 8:05 AM NAVY FIGHTER PILOT [facility] Cardiology [address] [facility] [address], [place] [address] [address] [facility] [address], [place] [address] P:[phone] P:[phone] Echocardiographic Report Patient Name: JEUSS BOB W : 1935 Study Date: 06/05/2024 3:07:55 PM Gender: M Tech: Location: [facility] Provider: CAMMIE ZAMORA Height(Cm): 178 BSA: 1.97 Weight(Kg): 78.5 Heart Rate: 84 BP: 118 / 52 Quality: Good Order Provider: CAMMIE ZAMORA PROCEDURES: Echocardiographic Report: Transthoracic echocardiogram with complete 2D, M-Mode, and color Doppler examination. INDICATIONS: Aortic Valve Sclerosis. MEASUREMENTS: 2D/MM Value Range Doppler Value Range EF Mod BP 73 % [ 52 - 72 ] DEVIKA Vmax 1.79 cm2 [ 2.00 - 4.00 ] EF Teich MM 64 % [ 52 - 72 ] AV Mean PG 15 mmHg Estimated EF 70-75 % AV Peak Jaime 2.44 m/s [ 1.00 - 1.70 ] LVIDd 2D 5.00 cm [ 4.20 - 5.80 ] AV Peak PG 24 mmHg LVIDd MM 6.43 cm [ 4.20 - 5.80 ] AV VTI 57.31 cm LVIDs 2D 3.20 cm [ 2.50 - 4.00 ] LVOT Diam 2.00 cm [ 1.70 - 2.10 ] LVIDs MM 4.15 cm [ 2.50 - 4.00 ] LVOT Peak Jaime 1.40 m/s [ 0.70 - 1.10 ] LVPWd 2D 0.96 cm [ 0.60 - 1.00 ] LVOT VTI 32.52 cm LVPWd MM 1.04 cm [ 0.60 - 1.00 ] MV E Peak Jaime 1.05 m/s [ 0.60 - 1.30 ] IVSd 2D 1.30 cm [ 0.60 - 1.00 ] MV A Peak Jaime 1.28 m/s [ 1.00 - 1.20 ] IVSd MM 0.87 cm [ 0.60 - 1.00 ] MV Mean PG 4 mmHg [ 0 - 5 ] LA Dimension MM 4.26 cm [ 3.00 - 4.00 ] MV PHT 62 msec [ 20 - 100 ] AoR Diam MM 3.71 cm [ 3.10 - 3.70 ] MVA PHT 3.54 cm2 [ 2.00 - 4.00 ] LA Volume Index 31 cc/m2 [ 16 - 34 ] MV Decel Time 226 msec [ 104 - 258 ] ACS MM 1.56 cm [ 1.50 - 2.60 ] PV Peak Jaime 1.52 m/s [ 0.40 - 0.80 ] TR Peak Jaime 2.58 m/s [ 1.00 - 2.80 ] TR Peak PG 27 mmHg RVSP 35.00 mmHg [ 10.00 - 36.00 ] Lateral E` 0.06 m/s [ 0.10 - 0.15 ] E` 0.06 m/s E/E` 17 2D/MM Value Range Doppler Value Range - FINDINGS: Interpretation Site: Exam was interpreted at [facility]. Left Ventricle: Normal left ventricular systolic function. No focal wall motion abnormalities. Normal left ventricular size. Mild concentric left ventricular hypertrophy. Impaired diastolic relaxation Grade I. Ejection fraction is measured at 73 %. Ejection Fraction is visually estimated to be 70-75 %. Right Ventricle: Normal right ventricular size. Normal right ventricular systolic function. Left Atrium: There is moderate enlargement of left atrium. Right Atrium: The right atrium is normal in size. Atrial Septum: Normal atrial septum. Mitral Valve: Mitral valve leaflets appear mildly thickened. Severe mitral annular calcification. Mild mitral valve regurgitation. There is no hemodynamically significant mitral stenosis by Doppler. Aortic Valve: Mild aortic stenosis. Peak Velocity of 2.44 m/s. Peak gradient of 24.0 mmHg. Mean gradient of 15.0 mmHg. Valve area of 1.8 cm2. Aortic cusps appear moderately calcified. Trileaflet aortic valve. Trace aortic valve regurgitation. Tricuspid Valve: Normal appearance of the tricuspid valve. Normal right ventricular systolic pressure. Estimated peak RVSP is 35 mmHg. Mild tricuspid regurgitation. Pulmonic Valve: Normal appearance of the pulmonic valve. No pulmonic stenosis. Mild pulmonic regurgitation. Pericardium: Normal pericardium with no significant pericardial effusion. Aorta: Normal aortic root. IVC: Normal size and normal respiratory collapse consistent with normal right atrial pressure (<5 mmHg). CONCLUSIONS: Normal left ventricular systolic function. No focal wall motion abnormalities. Normal left ventricular size. Mild concentric left ventricular hypertrophy. Impaired diastolic relaxation Grade I. Ejection fraction is measured at 73 %. Ejection Fraction is visually estimated to be 70-75 %. There is moderate enlargement of left atrium. Mitral valve leaflets appear mildly thickened. Severe mitral annular calcification. Mild mitral valve regurgitation. Mild aortic stenosis. Peak Velocity of 2.44 m/s. Peak gradient of 24.0 mmHg. Mean gradient of 15.0 mmHg. Valve area of 1.8 cm2. Aortic cusps appear moderately calcified. Trileaflet aortic valve. Mild tricuspid regurgitation. Mild pulmonic regurgitation. Normal sinus rhythm. Cystic structure seen in the liver measuring 7.4 x 8.1 cm. Consider ultrasound imaging for further anatomical evaluation. Electronically Signed By: Chris Polo MD 06/06/2024 8:04:36 AM NAVY FIGHTER PILOT Procedure Note Chris Polo MD - 06/06/2024 [facility] Cardiology [address] [facility] [address], [place] [address] [address] [facility] [address], [place] [address] P:[phone] P:[phone] Echocardiographic Report Patient Name: JESUS BOB W : 1935 Study Date: 06/05/2024 3:07:55 PM Gender: M Tech: Location: [facility] Provider: CAMMIE ZAMORA Height(Cm): 178 BSA: 1.97 Weight(Kg): 78.5 Heart Rate: 84 BP: 118 / 52 Quality: Good Order Provider: CAMMIE ZAMORA PROCEDURES: Echocardiographic Report: Transthoracic echocardiogram with complete 2D, M-Mode, and color Dopplerexamination. INDICATIONS: Aortic Valve Sclerosis. MEASUREMENTS: 2D/MM Value Range Doppler ValueRange EF Mod BP 73 % [ 52 - 72 ] DEVIKA Vmax 1.79cm2 [ 2.00 - 4.00 ] EF Teich MM 64 % [ 52 - 72 ] AV Mean PG 15mmHg Estimated EF 70-75 % AV Peak Jaime 2.44m/s [ 1.00 - 1.70 ] LVIDd 2D 5.00 cm [ 4.20 - 5.80 ] AV Peak PG 24mmHg LVIDd MM 6.43 cm [ 4.20 - 5.80 ] AV VTI 57.31cm LVIDs 2D 3.20 cm [ 2.50 - 4.00 ] LVOT Diam 2.00 cm[ 1.70 - 2.10 ] LVIDs MM 4.15 cm [ 2.50 - 4.00 ] LVOT Peak Jaime 1.40m/s [ 0.70 - 1.10 ] LVPWd 2D 0.96 cm [ 0.60 - 1.00 ] LVOT VTI 32.52cm LVPWd MM 1.04 cm [ 0.60 - 1.00 ] MV E Peak Jaime 1.05m/s [ 0.60 - 1.30 ] IVSd 2D 1.30 cm [ 0.60 - 1.00 ] MV A Peak Jaime 1.28m/s [ 1.00 - 1.20 ] IVSd MM 0.87 cm [ 0.60 - 1.00 ] MV Mean PG 4 mmHg[ 0 - 5 ] LA Dimension MM 4.26 cm [ 3.00 - 4.00 ] MV PHT 62 msec[ 20 - 100 ] AoR Diam MM 3.71 cm [ 3.10 - 3.70 ] MVA PHT 3.54cm2 [ 2.00 - 4.00 ] LA Volume Index 31 cc/m2 [ 16 - 34 ] MV Decel Time 226msec [ 104 - 258 ] ACS MM 1.56 cm [ 1.50 - 2.60 ] PV Peak Jiame 1.52m/s [ 0.40 - 0.80 ] TR Peak Jaime 2.58 m/s [ 1.00 - 2.80 ] TR Peak PG 27 mmHg RVSP 35.00 mmHg [ 10.00 - 36.00 ] Lateral E` 0.06 m/s [ 0.10 - 0.15 ] E` 0.06 m/s E/E` 17 2D/MM Value Range Doppler ValueRange - FINDINGS: Interpretation Site: Exam was interpreted at [facility]. Left Ventricle: Normal left ventricular systolic function. No focal wall motionabnormalities. Normal left ventricular size. Mild concentric left ventricular hypertrophy.Impaired diastolic relaxation Grade I. Ejection fraction is measured at 73 %. EjectionFraction is visually estimated to be 70-75 %. Right Ventricle: Normal right ventricular size. Normal right ventricular systolicfunction. Left Atrium: There is moderate enlargement of left atrium. Right Atrium: The right atrium is normal in size. Atrial Septum: Normal atrial septum. Mitral Valve: Mitral valve leaflets appear mildly thickened. Severe mitral annularcalcification. Mild mitral valve regurgitation. There is no hemodynamically significant mitralstenosis by Doppler. Aortic Valve: Mild aortic stenosis. Peak Velocity of 2.44 m/s. Peak gradient of 24.0mmHg. Mean gradient of 15.0 mmHg. Valve area of 1.8 cm2. Aortic cusps appearmoderately calcified. Trileaflet aortic valve. Trace aortic valve regurgitation. Tricuspid Valve: Normal appearance of the tricuspid valve. Normal right ventricularsystolic pressure. Estimated peak RVSP is 35 mmHg. Mild tricuspid regurgitation. Pulmonic Valve: Normal appearance of the pulmonic valve. No pulmonic stenosis. Mildpulmonic regurgitation. Pericardium: Normal pericardium with no significant pericardial effusion. Aorta: Normal aortic root. IVC: Normal size and normal respiratory collapse consistent with normal rightatrial pressure (<5 mmHg). CONCLUSIONS: Normal left ventricular systolic function. No focal wall motionabnormalities. Normal left ventricular size. Mild concentric left ventricular hypertrophy.Impaired diastolic relaxation Grade I. Ejection fraction is measured at 73 %. EjectionFraction is visually estimated to be 70-75 %. There is moderate enlargement of left atrium. Mitral valve leaflets appear mildly thickened. Severe mitral annularcalcification. Mild mitral valve regurgitation. Mild aortic stenosis. Peak Velocity of 2.44 m/s. Peak gradient of 24.0mmHg. Mean gradient of 15.0 mmHg. Valve area of 1.8 cm2. Aortic cusps appearmoderately calcified. Trileaflet aortic valve. Mild tricuspid regurgitation. Mild pulmonic regurgitation. Normal sinus rhythm. Cystic structure seen in the liver measuring 7.4 x 8.1 cm. Considerultrasound imaging for further anatomical evaluation. Electronically Signed By: Chris Polo MD 06/06/2024 8:04:36 AM [employer]TER [employer] us Cammie Zamora MD CV ECHO PROCEDURES Final Result from Last 3 Months Insurance [facility] MEDICARE [employer] MEDICARE Care Teams Bag Machine Operator Helper Relationship Specialty Start Date End Date Trey Peterson MD PCP - General Family Practice 03/21/24
--- OUTSIDE RECORDS SUMMARY | 2024-06-26 07:28 | XMS_ITS | Referral Summary ---
Author Organization [facility] Address [address] [place] [address] Care Team Providers Care Commissary Superintendent Name Role Phone Unavailable Primary Care Provider Unavailabl e Source Comments [facility],non-owned Affiliates and Associated Physician Practices is amultiple site organization consisting of ambulatory clinics and hospital sitesin [place], [place] and [place]. This disclosure is being madepursuant to the Care Everywhere program and may not contain all information available regarding this patient. Last updated 18.[facility] [employer] Social History Tobacco Use Types Packs/Day Years Used Date Smoking Tobacco: Never Assessed Sex and Gender Information Value Date Recorded Sex Assigned at Not on file Gender Identity Not on file Sexual Orientation Not on file Plan of Treatment Not on file
--- OUTSIDE RECORDS SUMMARY | 2024-06-26 07:28 | XMS_ITS | Patient Health Summary ---
Author Organization [facility] Address [address] [place] [address] Care Team Providers Care Clamp Forklift Operator Name Role Phone Unavailable Primary Care Provider Unavailabl e Note from [facility],non-owned Affiliates and Associated Physician Practices is amultiple site organization consisting of ambulatory clinics and hospital sitesin [place], [place], [place] and [place]. This disclosure is being madepursuant to the Care Everywhere program and may not contain all information available regarding this patient. Last updated 18.[facility] [employer] Social History Tobacco Use Types Packs/Day Years Used Date Smoking Tobacco: Never Assessed Sex and Gender Information Value Date Recorded Sex Assigned at Not on file Gender Identity Not on file Sexual Orientation Not on file Procedures * DERMATOPATHOLOGY(Performed 03/04/2021) * DERMATOPATHOLOGY(Performed 02/11/2020) * DERMATOPATHOLOGY(Performed 01/24/2020) Results * DERMATOPATHOLOGY (03/04/2021 12:00 AM CDT) Only the most recent of3 resultswithin the time period is included. Case Report Dermatopathology Report Case: [id number] Authorizing Provider: Robin Sherman Jr., MD Collected: 03/04/2021 12:00 AM Ordering Location: [facility] DermPath Lab Received: 03/05/2021 01:36 PM Pathologist: Stephie Castellanos MD Specimen: Skin, right superior central buccal cheek 5:39 PM CDT DERMATOPATHOLOGY LABORATORY Final Diagnosis Specimen A. 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 . 5:39 PM CDT DERMATOPATHOLOGY LABORATORY Gross Description Specimen A: Received is one formalin filled container labeled with the patient's name and designated right superior central buccal cheek. The specimen consists of a shave biopsy measuring [id number]. Jar 0. 5:39 PM T DERMATOPATHOLOGY LABORATORY Microscopic Description Specimen A. SKIN, right superior central buccal cheek: There is hyperkeratosis alternating with parakeratosis. There is epidermal hyperplasia with disorderly maturation of keratinocytes with nuclear pleomorphism confined to the lower half of the epidermis. 5:39 PM CDT DERMATOPATHOLOGY LABORATORY Disclaimer An external and internal positive and negative controls are appropriate for the histochemical, immunohistochemical and immunofluorescence stain(s) in this case (if any), except where stated explicitly. The performance characteristics of the stain(s) cited in this report were developed and its performance characteristic determined by the Dermatopathology Laboratory at [facility], directed by Dr. Danielle Castellanos. These tests need not be, and therefore are not, approved by the [place] Food and Drug Administration. The tests are used for clinical purposes. Billing Codes Specimen Charges Stain Charges 03005 1 5:39 PM CDT DERMATOPATHOLOGY LABORATORY Embedded Images 5:39 PM CDT DERMATOPATHOLOGY LABORATORY Pathology/Cytolog y TISSUE SPECIMEN FROM SKIN / Unknown 03/04/2021 03/05/2021 1:36 PM CDT Robin Sherman Jr., MD LAB - PATHOLOGY /CYTOLOGY ORDERABLES DERMATOPATHOLOGY LABORATORY [facility] - Department of Dermatology [address] [phone]
--- OUTSIDE RECORDS SUMMARY | 2024-06-26 07:28 | XMS_ITS | Clinical Summary ---
Author Organization [facility] [address] Address [address] [place] [address] Care Team Providers Care Radiation Oncology Manager Name Role Phone Trey Peterson MD Primary Care Provider [phone] [phone] Allergies Active Allergy Reactions Criticality Noted Date [...] Dx; Recurrent Syncope, NSVT, PVC's, PAC's. DOI 10/22/2019-[facility]. [employer] remote monitoring. NSVT (nonsustained ventricular tachycardia) 01/07 PVC's (premature ventricular contractions) 01/19 PSVT (paroxysmal supraventricular tachycardia) 0 01/19/2019 Mitral valve regurgitation 01/19/2019 Essential hypertension 11/03/2018 Carotid atherosclerosis, bilateral 11/03/2018 History of syncope 11/03/2018 Resolved Problems Problem Noted Date Diagnosed Date Resolved Date Dyslipidemia 01/19/2019 11/30/2021 Encounters Date Type Department Care Team Description 06/05/2024 3:00 PM PRINTING SUPERVISOR Ancillary Procedure [facility] Cardiology [address] [place] [address] Aortic valve sclerosis from Last 3 Months Surgical History Surgery Date Site/Laterality Comments TONSILLECTOMY APPENDECTOMY Medical History Medical History Date Comments Hypertension Family History Medical History Relation Name Comments Stroke Father Francesco Bob Stroke Mother Amelia Bob Relation Name Status Comments Father Francesco Bob Mother Amelia Bob Social History Tobacco Use Types Packs/Day Years Used Date Smoking Tobacco: Never Smokeless Tobacco: Never Tobacco Cessation:Counseling Given: Not Answered Alcohol Use Standard Drinks/Week Comments Never 0 (1 standard drink = 0.6 oz pur e alcohol) Sex and Gender Information Value Date Recorded Sex Assigned at Not on file Legal Sex Male 12:05 AM PRINTING SUPERVISOR Gender Identity Male 10/23/2019 10:54 PM CDT Sexual Orientation Not on file Obstetrics History Last Filed Vital Signs Vital Sign Reading Time Taken Comments Blood Pressure 118/52 03/21/2024 1:45 PM PRINTING SUPERVISOR Pulse 73 03/21/2024 1:45 PM PRINTING SUPERVISOR Temperature - - Respiratory Rate - - Oxygen Saturation 97% 03/21/2024 1:45 PM PRINTING SUPERVISOR Inhaled Oxygen Concentration - - Weight 78.5 kg (173 lb) 03/21/2024 1:45 PM PRINTING SUPERVISOR Height 177.8 cm (5' 10 ) 03/21/2024 1:45 PM PRINTING SUPERVISOR Body Mass Index 24.82 03/21/2024 1:45 PM PRINTING SUPERVISOR Plan of Treatment Health Maintenance Due Date Last Done Comments Depression Screening 1935 Fall Risk Assessment 1935 DTaP/Tdap/Td Vaccine (1 - Tdap) 09/15/1947 Hepatitis B Screening 1953 Zoster Vaccine (1 of 2) 1986 Well Visit 65+ 2001 Influenza Vaccine (#1) 2024 8, 02/16/2017, 02/19/2016, Additional history exists Pneumococcal vaccine 65+ Completed 04/10/2017, 05/10 Procedures Procedure Name Priority Date/Time Associated Diagnosis Comments TRANSTHORACIC ECHO (TTE) COMPLETE W DOPPLER/CF WO CONTRAST Routine 06/05/2024 3:41 PM PRINTING SUPERVISOR Aortic valve sclerosis from Last 3 Months Results * TRANSTHORACIC ECHO (TTE) COMPLETE W DOPPLER/CF WO CONTRAST (06/05/2024 3:41 PM PRINTING SUPERVISOR) LV EF 70-75 % CONS SCIMAGE Anatomical Region Laterality Modality Ultrasound 06/05/2024 3:07 PM PRINTING SUPERVISOR Narrative 06/06/2024 8:05 AM PRINTING SUPERVISOR [facility] Cardiology [address] [facility] [address], [place] [address] [address] [facility] [address] [address] P:[phone] P:[phone] Echocardiographic Report Patient Name: JESUS BOB W : 1935 Study Date: 06/05/2024 3:07:55 PM Gender: M Tech: Location: [place] Ref Provider: RITO ZAMORA Height(Cm): 178 BSA: 1.97 Weight(Kg): 78.5 Heart Rate: 84 BP: 118 / 52 Quality: Good Order Provider: RITO ZAMORA PROCEDURES: Echocardiographic Report: Transthoracic echocardiogram with [...] FINDINGS: Interpretation Site: Exam was interpreted at [facility]. Left Ventricle: Normal left ventricular systolic function. [...] By: Chris Polo MD 06/06/2024 8:04:36 AM PRINTING SUPERVISOR Procedure Note Chris Polo MD - 06/06/2024 [facility] Cardiology [address] [facility] [address], [place] [address] [address] [facility] [address], [place] [address] P:[phone] P:[phone] Echocardiographic Report Patient Name: JESUS BOB W : 1935 Study Date: 06/05/2024 3:07:55 PM Gender: M Tech: Location: [facility] Provider: RITO ZAMORA Height(Cm): 178 BSA: 1.97 Weight(Kg): 78.5 Heart Rate: 84 BP: 118 / 52 Quality: Good Order Provider: RITO ZAMORA PROCEDURES: Echocardiographic Report: Transthoracic echocardiogram with [...] 1.50 - 2.60 ] PV Peak Jaime 1.52m/s [ 0.40 - 0.80 ] TR Peak Jaime 2.58 m/s [ 1.00 - 2.80 ] TR Peak PG 27 mmHg RVSP 35.00 mmHg [ 10.00 - 36.00 ] Lateral E` 0.06 m/s [ 0.10 - 0.15 ] E` 0.06 m/s E/E` 17 2D/MM Value Range Doppler ValueRange - FINDINGS: Interpretation Site: Exam was interpreted at [facility]. Left Ventricle: Normal left ventricular systolic function. [...] By: Chris Polo MD 06/06/2024 8:04:36 AM PRINTING SUPERVISOR Rito Zamora MD CV ECHO PROCEDURES Final Result from Last 3 Months Insurance T MEDICARE [facility] MEDICARE Care Teams Radiation Oncology Manager Relationship Specialty Start Date End Date Trey Peterson MD PCP - General Family Practice 03/21/24
--- OUTSIDE RECORDS SUMMARY | 2024-06-26 07:28 | XMS_ITS | Encounter Summary ---
Author Organization [facility] Address [address] [facility] [facility] [address] Care Team Providers Care Forklift Truck Operator Name Role Phone Unavailable Primary Care Provider Unavailabl e Encounter Details Date Type Department Care Team (Late st Contact Info) Description 01/25/2020 Lab Requisition [facility] DermPath Lab [address] [facility], [place] [phone] [place] [address] [place] [address] Social History Tobacco Use Types Packs/Day Years Used Date Smoking Tobacco: Never Assessed Sex and Gender Information Value Date Recorded Sex Assigned at Not on file Gender Identity Not on file Sexual Orientation Not on file documented as of this encounter Plan of Treatment Not on file documented as of this encounter Procedures Procedure Name Priority Date/Time Associated Diagnosis Comments DERMATOPATHOLOGY Routine 01/24/2020 12:0 0 AM CDT documented in this encounter Results * DERMATOPATHOLOGY (01/24/2020 12:00 AM CDT) Case Report Dermatopathology Report Case: [id number] Authorizing Provider: Rosaura Madison MD Collected: 01/24/2020 12:00 AM Ordering Location: [facility] DermPath Lab Received: 01/25/2020 12:39 PM Pathologist: Sully Alonzo MD Specimens: A) - Skin, left superior upper back B) - Skin, right superior central forehead 0 4:21 PM CDT DERMATOPATHOLOGY LABORATORY Final Diagnosis Specimen A. SKIN, left superior upper back: EPIDERMOID CYST (L72.0) Specimen B. 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 . 0 4:21 PM CDT DERMATOPATHOLOGY LABORATORY Gross Description Specimen A: Received is one formalin filled container labeled with the patient's name and designated left superior upper back. The specimen consists of a [id number] excision. The specimen is serially sectioned and a hospital sales representative section is submitted in cassette 1. Jar 1. Specimen B: Received is one formalin filled container labeled with the patient's name and designated right superior central forehead . The specimen consists of a shave biopsy measuring [id number]. Jar 0. 0 4:21 PM CDT DERMATOPATHOLOGY LABORATORY Microscopic Description Specimen A. SKIN, left superior upper back: Within the dermis, there is a space lined by epithelium that resembles normal epidermis and the infundibular portion of the hair follicle. Specimen B. SKIN, right superior central forehead : There is hyperkeratosis alternating with parakeratosis. There is epidermal hyperplasia with disorderly maturation of keratinocytes with nuclear pleomorphism confined to the lower half of the epidermis. Focally there is a suprabasilar cleft with acantholytic cells. 0 4:21 PM CDT DERMATOPATHOLOGY LABORATORY Disclaimer An external and internal positive and negative controls are appropriate for the histochemical, immunohistochemical and immunofluorescence stain(s) in this case (if any), except where stated explicitly. The performance characteristics of the stain(s) cited in this report were developed and its performance characteristic determined by the Dermatopathology Laboratory at [facility], directed by Dr. Danielle Castellanos. These tests need not be, and therefore are not, approved by the [place] Food and Drug Administration. The tests are used for clinical purposes. Billing Codes Specimen Charges Stain Charges 79960 94584 1 1 0 4:21 PM CDT DERMATOPATHOLOGY LABORATORY Embedded Images 0 4:21 PM CDT DERMATOPATHOLOGY LABORATORY Pathology/Cytology TISSUE SPECIMEN FROM SKIN / Unknown 01/24/2020 01/25/2020 12:39 PM CDT Miscellaneous samples (specimen) TISSUE SPECIMEN FROM SKIN / Unknown 01/24/2020 01/25/2020 12:39 PM CDT Rosaura Madison MD LAB - PATHOLOGY/C YTOLOGY ORDERABLES DERMATOPATHOLOGY LABORATORY [facility] - Department of Dermatology [facility] Medicine [address] [place] [address], [address] Floor [address] [phone] documented in this encounter Visit Diagnoses Not on filedocumented in this encounter
--- OUTSIDE RECORDS SUMMARY | 2024-06-26 07:28 | XMS_ITS | Clinical Summary ---
Author Organization [facility] Address [address] [place] [address] Care Team Providers Care Political Worker Name Role Phone Unavailable Primary Care Provider Unavailabl e Source Comments [facility] [employer],non-owned Affiliates and Associated Physician Practices is amultiple site organization consisting of ambulatory clinics and hospital sitesin [place], [place], [place] and [place]. This disclosure is being madepursuant to the Care Everywhere program and may not contain all information available regarding this patient. Last updated 18.[facility] [employer] Social History Tobacco Use Types Packs/Day Years Used Date Smoking Tobacco: Never Assessed Sex and Gender Information Value Date Recorded Sex Assigned at Not on file Gender Identity Not on file Sexual Orientation Not on file Plan of Treatment Health Maintenance Due Date Last Done Comments DTAP/TDAP/TD VACCINES (1 - Tdap) 09/15/1954 PNEUMOCOCCAL VACCINE 50+ (1 of 1 - PCV) 1986 ZOSTER VACCINE (1 of 2) 1986 Respiratory Syncytial Virus (RSV) Vaccine Pt: or over 60 yrs (1 - 1-dose 75+ series) 09/15/2011 COVID-19 VACCINE ( - 2023-2 5 season) 2024 INFLUENZA VACCINE (#1) 2024 DEPRESSION SCREENING 05/09/2024 MEDICARE AWV CALENDAR YEAR 2024 HEPATITIS B VACCINE Aged Out No longe r eligible based on patient's age to complete this topic HIB VACCINE Aged Out No longer eligi ble based on patient's age to complete this topic HPV VACCINE Aged Out No longer eligi ble based on patient's age to complete this topic MENINGOCOCCAL (Group B) VACCINE Aged Out No longer eligible based on patient's age to complete this topic MENINGOCOCCAL VACCINE Aged Out No patricia mally eligible based on patient's age to complete this topic Guarantor Name Account Type Relation to Patient Date of Phone Billing Address Jesus Mcgee Personal/Famil y Self 1935 [address] [facility] [place] [address]
--- OUTSIDE RECORDS SUMMARY | 2024-06-26 07:29 | XMS_ITS | Encounter Summary ---
Author Organization [facility] Address [address] [place] [address] Care Team Providers Care Patient Partner Name Role Phone Unavailable Primary Care Provider Unavailabl e Encounter Details Date Type Department Care Team (Late st Contact Info) Description 03/05/2021 Lab Requisition [facility] DermPath Lab [address] [facility], [place] [phone] Robin Sherman Jr., MD [address] [place] [address] Social History Tobacco Use Types Packs/Day Years Used Date Smoking Tobacco: Never Assessed Sex and Gender Information Value Date Recorded Sex Assigned at Not on file Gender Identity Not on file Sexual Orientation Not on file documented as of this encounter Plan of Treatment Not on file documented as of this encounter Procedures Procedure Name Priority Date/Time Associated Diagnosis Comments DERMATOPATHOLOGY Routine 03/04/2021 12:0 0 AM CDT documented in this encounter Results * DERMATOPATHOLOGY (03/04/2021 12:00 AM CDT) Case Report Dermatopathology Report Case: [id number] Authorizing Provider: Robin Sherman Jr., MD Collected: 03/04/2021 12:00 AM Ordering Location: [facility] DermPath Lab Received: 03/05/2021 01:36 PM Pathologist: [...] specimen consists of a shave biopsy measuring [id number]. Jar 0. 5:39 PM CDT DERMATOPATHOLOGY LABORATORY Microscopic Description Specimen [...] characteristic determined by the Dermatopathology Laboratory at [facility], directed by Dr. Danielle Castellanos. These tests need not be, and therefore are not, approved by the [place] Food and Drug Administration. The tests are used for clinical purposes. Billing Codes Specimen Charges Stain Charges 05514 1 5:39 PM CDT DERMATOPATHOLOGY LABORATORY Embedded Images 5:39 PM CDT DERMATOPATHOLOGY LABORATORY Pathology/Cytolog y TISSUE SPECIMEN FROM SKIN / Unknown 03/04/2021 03/05/2021 1:36 PM CDT Robin Sherman Jr., MD LAB - PATHOLOGY /CYTOLOGY ORDERABLES DERMATOPATHOLOGY LABORATORY [facility] - Department of Dermatology [address], [address] [phone] documented in this encounter Visit Diagnoses Not on filedocumented in this encounter
--- OUTSIDE RECORDS SUMMARY | 2024-06-26 07:29 | XMS_ITS | Encounter Summary ---
Author Organization [facility] Address [address] [place] [address] Care Team Providers Care Mixing Machine Attendant Name Role Phone Unavailable Primary Care Provider Unavailabl e Encounter Details Date Type Department Care Team (Late st Contact Info) Description 02/12/2020 Lab Requisition [facility] DermPath Lab [address] [facility] [place] [phone] [place] [address] [place] [address] Social History Tobacco Use Types Packs/Day Years Used Date Smoking Tobacco: Never Assessed Sex and Gender Information Value Date Recorded Sex Assigned at Not on file Gender Identity Not on file Sexual Orientation Not on file documented as of this encounter Plan of Treatment Not on file documented as of this encounter Procedures Procedure Name Priority Date/Time Associated Diagnosis Comments DERMATOPATHOLOGY Routine 02/11/2020 12:0 0 AM CDT documented in this encounter Results * DERMATOPATHOLOGY (02/11/2020 12:00 AM CDT) Case Report Dermatopathology Report Case: [id number] Authorizing Provider: Rosaura Madison MD Collected: 02/11/2020 12:00 AM Ordering Location: [facility] DermPath Lab Received: 02/12/2020 02:00 PM Pathologist: Sully Alonzo MD Specimen: Skin, right dorsal wrist 0 3:06 PM CDT DERMATOPATHOLOGY LABORATORY Final Diagnosis Specimen A. SKIN, right dorsal wrist: HYPERPLASTIC (HYPERTROPHIC) ACTINIC KERATOSIS, LICHENOID (L57.0) 0 3:06 PM CDT DERMATOPATHOLOGY LABORATORY Clinical History Keratoacanthoma. . 0 3:06 PM CDT DERMATOPATHOLOGY LABORATORY Gross Description Specimen A: Received is one formalin filled container labeled with the patient's name and designated right dorsal wrist. The specimen consists of a shave biopsy measuring [id number]. Jar 0. 0 3:06 PM CDT DERMATOPATHOLOGY LABORATORY Microscopic Description Specimen A. SKIN, right dorsal wrist: There is hyperkeratosis alternating with parakeratosis. There is epidermal hyperplasia with disorderly maturation of keratinocytes with nuclear pleomorphism confined to the lower half of the epidermis. The dermis shows a band-like, chronic inflammatory infiltrate with occasional apoptotic keratinocytes and some basal vacuolar alteration. 0 3:06 PM CDT DERMATOPATHOLOGY LABORATORY Disclaimer An external and internal positive and negative controls are appropriate for the histochemical, immunohistochemical and immunofluorescence stain(s) in this case (if any), except where stated explicitly. The performance characteristics of the stain(s) cited in this report were developed and its performance characteristic determined by the Dermatopathology Laboratory at [facility], directed by Dr. Danielle Castellanos. These tests need not be, and therefore are not, approved by the [place] Food and Drug Administration. The tests are used for clinical purposes. Billing Codes Specimen Charges Stain Charges 16283 1 0 3:06 PM CDT DERMATOPATHOLOGY LABORATORY Embedded Images 0 3:06 PM CDT DERMATOPATHOLOGY LABORATORY Pathology/Cytolog y TISSUE SPECIMEN FROM SKIN / Unknown 02/11/2020 02/12/2020 2:00 PM CDT Rosaura Madison MD LAB - PATHOLOGY/C YTOLOGY ORDERABLES DERMATOPATHOLOGY LABORATORY [facility] - Department of Dermatology [address], [address] [phone] documented in this encounter Visit Diagnoses Not on filedocumented in this encounter
== END 2024-06-26 07:20 | disposition home or self-care (01) ==
PROVIDERS: PCP Family Medicine; Visit Provider Nurse Practitioner Family
DX: K76.89 Other specified diseases of liver (principal)
CPT/HCPCS: 76705

== ENCOUNTER 2024-07-14 09:47 | Outpatient (CLI) | payer MEDICARE, SELFPAY ==
--- NOTE | ~2024-07-14 | MR_ITS ---
EXAMINATION: MR abdomen wo/w con DATE: 07/14/2024 11:34 INDICATION: Hepatomegaly, not elsewhere classified. Liver mass. TECHNIQUE: Magnetic resonance imaging (MRI) of the abdomen was performed without and with 15 mL Multi Kirstin intravenous contrast. COMPARISON: Abdomen ultrasound 06/26/2024, 09/19/07 FINDINGS: Left hepatic lobe is small. At the hilum of the liver, there is a 8.3 cm cyst with peripheral increas ed T1-weighted signal intensity, consistent with blood products. The gallbladder, spleen, pancreas, a drenal glands, and kidneys are normal. There are no dilated loops of bowel. IMPRESSION: 1. 8.3 cm hemorrhagic cyst at the hilum of the liver. Reviewed, dictated and finalized at location A. DESIGN INSTRUCTOR
--- OUTSIDE RECORDS SUMMARY | 2024-07-14 09:51 | XMS_ITS | Clinical Summary ---
Author Organization [facility] [address] Address [address] [place] [address] Care Team Providers Care Earth Moving Technician Name Role Phone Trey Peterson MD Primary Care Provider [phone] Allergies Active Allergy Reactions Criticality Noted Date [...] Department Care Team Description 06/05/2024 3:00 PM SUPERVISOR TUMBLERS Ancillary Procedure [facility] Cardiology [address] [place] [address] Aortic valve sclerosis from Last 3 Months Surgical History Surgery Date Site/Laterality Comments TONSILLECTOMY APPENDECTOMY Medical History Medical History Date Comments Hypertension Family History Medical History Relation Name Comments Stroke Father Francesco Bob Stroke Mother Amelia Bob Relation Name Status Comments Father Francesco Bob Mother Amelia Bbo Social History Tobacco Use Types Packs/Day Years Used Date Smoking Tobacco: Never Smokeless Tobacco: Never Tobacco Cessation:Counseling Given: Not Answered Alcohol Use Standard Drinks/Week Comments Never 0 (1 standard drink = 0.6 oz pur e alcohol) Sex and Gender Information Value Date Recorded Sex Assigned at Not on file Legal Sex Male 12:05 AM SUPERVISOR TUMBLERS Gender Identity Male 10/23/2019 10:54 PM CDT Sexual Orientation Not on file Obstetrics History Last Filed Vital Signs Vital Sign Reading Time Taken Comments Blood Pressure 118/52 03/21/2024 1:45 PM SUPERVISOR TUMBLERS Pulse 73 03/21/2024 1:45 PM SUPERVISOR TUMBLERS Temperature - - Respiratory Rate - - Oxygen Saturation 97% 03/21/2024 1:45 PM SUPERVISOR TUMBLERS Inhaled Oxygen Concentration - - Weight 78.5 kg (173 lb) 03/21/2024 1:45 PM SUPERVISOR TUMBLERS Height 177.8 cm (5' 10 ) 03/21/2024 1:45 PM SUPERVISOR TUMBLERS Body Mass Index 24.82 03/21/2024 1:45 PM SUPERVISOR TUMBLERS Plan of Treatment Health Maintenance Due Date [...] DOPPLER/CF WO CONTRAST Routine 06/05/2024 3:41 PM SUPERVISOR TUMBLERS Aortic valve sclerosis from Last 3 Months Results * TRANSTHORACIC ECHO (TTE) COMPLETE W DOPPLER/CF WO CONTRAST (06/05/2024 3:41 PM SUPERVISOR TUMBLERS) LV EF 70-75 % CONS SCIMAGE Anatomical Region Laterality Modality Ultrasound 06/05/2024 3:07 PM SUPERVISOR TUMBLERS Narrative 06/06/2024 8:05 AM SUPERVISOR TUMBLERS [facility] Cardiology [address] [facility] [address], [place] [address] [address] [facility] [address], [place] [address] P:[phone] P:[phone] Echocardiographic Report Patient Name: JESUS BOB W : 1935 Study Date: 06/05/2024 3:07:55 PM Gender: M Tech: Location: [place] Ref Provider: RITO ZAMORA Height(Cm): 178 BSA: [...] FINDINGS: Interpretation Site: Exam was interpreted at [facility]. Left Ventricle: Normal left ventricular systolic [...] By: Chris Polo MD 06/06/2024 8:04:36 AM SUPERVISOR TUMBLERS Procedure Note Chris Polo MD - 06/06/2024 [facility] Cardiology [address] [facility] [address] [address], [place] [address] [address] [facility] [facility] [address], [place] [address] P:[phone] P:[phone] Echocardiographic Report Patient Name: JESUS BOB W : 1935 Study Date: 06/05/2024 3:07:55 PM Gender: M Tech: Location: [facility] Provider: RITO ZAMORA Height(Cm): 178 BSA: [...] FINDINGS: Interpretation Site: Exam was interpreted at [facility]. Left Ventricle: Normal left ventricular systolic [...] By: Chris Polo MD 06/06/2024 8:04:36 AM SUPERVISOR TUMBLERS Rito Zamora MD CV ECHO PROCEDURES Final Result from Last 3 Months Insurance T MEDICARE [facility] MEDICARE Care Teams Earth Moving Technician Relationship Specialty Start Date End Date Trey Peterson MD PCP - General Family Practice 03/21/24
--- OUTSIDE RECORDS SUMMARY | 2024-07-14 09:51 | XMS_ITS | Continuity of Care Document ---
Author Name Auto Generated, Auto Generated Organization [employer] [employer] Summary Purpose Consult/Referral Allergies, Adverse Reactions, Alerts No Known Allergies Medications No Known Medications Conditions/Problems No Known Problems Procedures No Known Procedures
--- OUTSIDE RECORDS SUMMARY | 2024-07-14 09:51 | XMS_ITS | Referral Summary ---
Author Organization [facility] [address] Address [address] [place] [address] Care Team Providers Care Cost Analyst Name Role Phone Trey Peterson MD Primary Care Provider [phone] Encounters Date Type Department Care Team Description 06/05/2024 3:00 PM CDL BULK DRIVER Ancillary Procedure [facility] Cardiology [address] [place] [address] Aortic valve sclerosis from Last [...] Dx; Recurrent Syncope, NSVT, PVC's, PAC's. DOI 10/22/2019-[place]. [employer] remote monitoring. NSVT (nonsustained ventricular tachycardia) 01/07 [...] on file Legal Sex Male 12:05 AM CDL BULK DRIVER Gender Identity Male 10/23/2019 10:54 PM CDT Sexual Orientation Not on file Last Filed Vital Signs Vital Sign Reading Time Taken Comments Blood Pressure 118/52 03/21/2024 1:45 PM CDL BULK DRIVER Pulse 73 03/21/2024 1:45 PM CDL BULK DRIVER Temperature - - Respiratory Rate - - Oxygen Saturation 97% 03/21/2024 1:45 PM CDL BULK DRIVER Inhaled Oxygen Concentration - - Weight 78.5 kg (173 lb) 03/21/2024 1:45 PM CDL BULK DRIVER Height 177.8 cm (5' 10 ) 03/21/2024 1:45 PM CDL BULK DRIVER Body Mass Index 24.82 03/21/2024 1:45 PM CDL BULK DRIVER Plan of Treatment Not on file Procedures Procedure Name Priority Date/Time Associated Diagnosis Comments TRANSTHORACIC ECHO (TTE) COMPLETE W DOPPLER/CF WO CONTRAST Routine 06/05/2024 3:41 PM CDL BULK DRIVER Aortic valve sclerosis from Last 3 Months Results * TRANSTHORACIC ECHO (TTE) COMPLETE W DOPPLER/CF WO CONTRAST (06/05/2024 3:41 PM CDL BULK DRIVER) LV EF 70-75 % CONS SCIMAGE Anatomical Region Laterality Modality Ultrasound 06/05/2024 3:07 PM CDL BULK DRIVER Narrative 06/06/2024 8:05 AM CDL BULK DRIVER [facility] Cardiology [address] [facility] [address], [place] [address] [address] [facility] [address], [place] [address] P:[phone] P:[phone] Echocardiographic Report Patient Name: JESUS BOB W : 1935 Study Date: 06/05/2024 3:07:55 PM Gender: M Tech: Location: [facility] Provider: CAMMIE ZAMORA Height(Cm): 178 BSA: [...] FINDINGS: Interpretation Site: Exam was interpreted at [facility]. Left Ventricle: Normal left ventricular systolic function. [...] By: Chris Polo MD 06/06/2024 8:04:36 AM CDL BULK DRIVER Procedure Note Chris Polo MD - 06/06/2024 [facility] Cardiology [address] [facility] [address] [address] [address] [facility] [address], [place] [address] P:[phone] P:[phone] Echocardiographic Report Patient Name: JESUS BOB W : 1935 Study Date: 06/05/2024 3:07:55 PM Gender: M Tech: Location: [facility] Provider: CAMMIE ZAMORA Height(Cm): 178 BSA: [...] FINDINGS: Interpretation Site: Exam was interpreted at [facility]. Left Ventricle: Normal left ventricular systolic function. [...] By: Chris Polo MD 06/06/2024 8:04:36 AM CDL BULK DRIVER us Cammie Zamora MD CV ECHO PROCEDURES Final Result from Last 3 Months Insurance [facility] MEDICARE [employer] MEDICARE Care Teams Cost Analyst Relationship Specialty Start Date End Date Trey Peterson MD PCP - General Family Practice 03/21/24
--- OUTSIDE RECORDS SUMMARY | 2024-07-14 09:51 | XMS_ITS | Clinical Summary ---
Author Organization [facility] Address [address] [facility] [place] [address] Care Team Providers Care Straight Knife Machine Cutter Name Role Phone Unavailable Primary Care Provider Unavailabl e Source Comments [facility] [employer],non-owned Affiliates and Associated Physician Practices is amultiple site organization consisting of ambulatory clinics and hospital sitesin [place], [place], [place] and [place]. This disclosure is being madepursuant to the Care Everywhere program and may not contain all information available regarding this patient. Last updated 18.[facility] [employer] Social History Tobacco Use Types Packs/Day Years [...]
--- OUTSIDE RECORDS SUMMARY | 2024-07-14 09:52 | XMS_ITS | Encounter Summary ---
Author Organization [facility] Address [address] [place] [address] Care Team Providers Care Halfway House Counselor Name Role Phone Unavailable Primary Care Provider Unavailabl e Encounter Details Date Type Department Care Team (Late st Contact Info) Description 01/25/2020 Lab Requisition [facility] DermPath Lab [address] [facility], [place] [phone] [place] [address] [place] [address] Social History Tobacco Use Types Packs/Day Years [...] AM CDT) Case Report Dermatopathology Report Case: [id number] Authorizing Provider: Rosaura Madison MD Collected: 01/24/2020 12:00 AM Ordering Location: [facility] DermPath Lab Received: 01/25/2020 12:39 PM Pathologist: [...] upper back. The specimen consists of a [id number] excision. The specimen is serially sectioned and a passenger service representative section is submitted in cassette 1. Jar 1. Specimen B: Received is one formalin filled container labeled with the patient's name and designated right superior central forehead . The specimen consists of a shave biopsy measuring [id number]. Jar 0. 0 4:21 PM CDT DERMATOPATHOLOGY [...] characteristic determined by the Dermatopathology Laboratory at [facility], directed by Dr. Danielle Castellanos. These tests need not be, and therefore are not, approved by the [place] Food and Drug Administration. The tests are used for clinical purposes. Billing Codes Specimen Charges Stain Charges 95981 22928 1 1 0 4:21 PM CDT DERMATOPATHOLOGY LABORATORY Embedded Images 0 4:21 PM CDT DERMATOPATHOLOGY LABORATORY Pathology/Cytology TISSUE SPECIMEN FROM SKIN / Unknown 01/24/2020 01/25/2020 12:39 PM CDT Miscellaneous samples (specimen) TISSUE SPECIMEN FROM SKIN / Unknown 01/24/2020 01/25/2020 12:39 PM CDT Rosaura Madison MD LAB - PATHOLOGY/C YTOLOGY ORDERABLES DERMATOPATHOLOGY LABORATORY [facility] - Department of Dermatology [facility] Medicine [address] [place] [address], [address] [phone] documented in this encounter Visit Diagnoses Not on filedocumented in this encounter
--- OUTSIDE RECORDS SUMMARY | 2024-07-14 09:52 | XMS_ITS | Patient Health Summary ---
Author Organization [facility] Address [address] [facility] [place] [place] [address] Care Team Providers Care Belt And Link Assembly Supervisor Name Role Phone Unavailable Primary Care Provider Unavailabl e Note from [facility],non-owned Affiliates and Associated Physician Practices is amultiple site organization consisting of ambulatory clinics and hospital sitesin [place], [place], [place] and [place]. This disclosure is being madepursuant to the Care Everywhere program and may not contain all information available regarding this patient. Last updated 18.[facility] [employer] Social History Tobacco Use Types Packs/Day Years [...] is included. Case Report Dermatopathology Report Case: [id number] Authorizing Provider: Robin Sherman Jr., MD Collected: 03/04/2021 12:00 AM Ordering Location: [facility] DermPath Lab Received: 03/05/2021 01:36 PM Pathologist: [...] specimen consists of a shave biopsy measuring [id number]. Jar 0. 5:39 PM T DERMATOPATHOLOGY LABORATORY [...] characteristic determined by the Dermatopathology Laboratory at [facility], directed by Dr. Danielle Castellanos. These tests need not be, and therefore are not, approved by the [place] Food and Drug Administration. The tests are used for clinical purposes. Billing Codes Specimen Charges Stain Charges 43972 1 5:39 PM CDT DERMATOPATHOLOGY LABORATORY Embedded Images 5:39 PM CDT DERMATOPATHOLOGY LABORATORY Pathology/Cytolog y TISSUE SPECIMEN FROM SKIN / Unknown 03/04/2021 03/05/2021 1:36 PM CDT Robin Sherman Jr., MD LAB - PATHOLOGY /CYTOLOGY ORDERABLES DERMATOPATHOLOGY LABORATORY [facility] - Department of Dermatology [address], [address] [phone]
--- OUTSIDE RECORDS SUMMARY | 2024-07-14 09:52 | XMS_ITS | Encounter Summary ---
Author Organization [facility] Address [address] [place] [address] Care Team Providers Care Therapeutic Case Manager Name Role Phone Unavailable Primary Care Provider Unavailabl e Encounter Details Date Type Department Care Team (Late st Contact Info) Description 03/05/2021 Lab Requisition [facility] Derm[facility] Lab [address] [facility], [place] [id number] Robin Sherman Jr., MD [address] [facility] [address] [place] [address] Social History Tobacco Use Types Packs/Day Years [...] AM CDT) Case Report Dermatopathology Report Case: [id number] Authorizing Provider: Robin Sherman Jr., MD Collected: 03/04/2021 12:00 AM Ordering Location: [facility] Derm[facility] Lab Received: 03/05/2021 01:36 PM Pathologist: [...] specimen consists of a shave biopsy measuring [id number]. Jar 0. 5:39 PM CDT DERMATOPATHOLOGY LABORATORY [...] characteristic determined by the Dermatopathology Laboratory at [facility], directed by Dr. Danielle Castellanos. These tests need not be, and therefore are not, approved by the [place] Food and Drug Administration. The tests are used for clinical purposes. Billing Codes Specimen Charges Stain Charges 06292 1 5:39 PM CDT DERMATOPATHOLOGY LABORATORY Embedded Images 5:39 PM CDT DERMATOPATHOLOGY LABORATORY Pathology/Cytolog y TISSUE SPECIMEN FROM SKIN / Unknown 03/04/2021 03/05/2021 1:36 PM CDT Robin Sherman Jr., MD LAB - PATHOLOGY /CYTOLOGY ORDERABLES DERMATOPATHOLOGY LABORATORY [facility] - Department of Dermatology [address], [address] [phone] documented in this encounter Visit Diagnoses Not on filedocumented in this encounter
--- OUTSIDE RECORDS SUMMARY | 2024-07-14 09:52 | XMS_ITS | Encounter Summary ---
Author Organization [facility] Address [address] [place] [address] Care Team Providers Care Helicopter Pilot Name Role Phone Unavailable Primary Care Provider Unavailabl e Encounter Details Date Type Department Care Team (Late st Contact Info) Description 02/12/2020 Lab Requisition [facility] DermPath Lab [address] [facility], [place] [id number] [place] [address] [place] [address] Social History Tobacco Use Types Packs/Day Years [...] AM CDT) Case Report Dermatopathology Report Case: [id number] Authorizing Provider: Rosaura Madison MD Collected: 02/11/2020 12:00 AM Ordering Location: [facility] DermPath Lab Received: 02/12/2020 02:00 PM [...] specimen consists of a shave biopsy measuring [id number]. Jar 0. 0 3:06 PM CDT DERMATOPATHOLOGY [...] characteristic determined by the Dermatopathology Laboratory at [facility], directed by Dr. Danielle Castellanos. These tests need not be, and therefore are not, approved by the [place] Food and Drug Administration. The tests are used for clinical purposes. Billing Codes Specimen Charges Stain Charges 68513 1 0 3:06 PM CDT DERMATOPATHOLOGY LABORATORY Embedded Images 0 3:06 PM CDT DERMATOPATHOLOGY LABORATORY Pathology/Cytolog y TISSUE SPECIMEN FROM SKIN / Unknown 02/11/2020 02/12/2020 2:00 PM CDT Rosaura Madison MD LAB - PATHOLOGY/C YTOLOGY ORDERABLES DERMATOPATHOLOGY LABORATORY [facility] - Department of Dermatology [address], [address] [phone] documented in this encounter Visit Diagnoses Not on filedocumented in this encounter
--- OUTSIDE RECORDS SUMMARY | 2024-07-14 09:52 | XMS_ITS | Referral Summary ---
Author Organization [facility] Address [address] [facility] [address] Care Team Providers Care Collection Agent Name Role Phone Unavailable Primary Care Provider Unavailabl e Source Comments [facility],non-owned Affiliates and Associated Physician Practices is amultiple site organization consisting of ambulatory clinics and hospital sitesin [place], [place], [place] and [place]. This disclosure is being madepursuant to the Care Everywhere program and may not contain all information available regarding this patient. Last updated 18.[facility] [employer] Social History Tobacco Use Types Packs/Day Years Used Date Smoking Tobacco: Never Assessed Sex and Gender Information Value Date Recorded Sex Assigned at Not on file Gender Identity Not on file Sexual Orientation Not on file Plan of Treatment Not on file
== END 2024-07-14 09:48 | disposition home or self-care (01) ==
PROVIDERS: PCP Family Medicine; Visit Provider Nurse Practitioner Family
DX: R16.0 Hepatomegaly, not elsewhere classified (principal); K76.89 Other specified diseases of liver
CPT/HCPCS: 74183; A9577

== ENCOUNTER 2024-10-10 08:14 | Outpatient (CLI) | payer MEDICARE, SELFPAY ==
--- OUTSIDE RECORDS SUMMARY | 2024-10-10 08:17 | XMS_ITS | Clinical Summary ---
Author Organization [facility] [address] Address [address] [place] [address] Care Team Providers Care System Administration Advisor Name Role Phone Trey Peterson MD Primary Care Provider [phone] Allergies Active Allergy Reactions Criticality Noted Date [...] 4 Active amLODIPine (NORVASC) 5 mg tablet Take 2 tablets (10 mg total) by mouth daily 180 tablet 5 Active Active Problems Problem [...] Diagnosed Date Resolved Date Dyslipidemia 01/19/2019 11/30/2021 Surgical History Surgery Date Site/Laterality Comments TONSILLECTOMY APPENDECTOMY Medical History Medical History Date Comments Hypertension Family History Medical History Relation Name Comments Stroke Father Francesco Mcgee Stroke Mother Amelia Mcgee Relation Name Status Comments Father Francesco Mcgee Mother Amelia Mcgee Social History Tobacco Use Types Packs/Day Years Used Date Smoking Tobacco: Never Smokeless Tobacco: Never Tobacco Cessation:Counseling Given: Not Answered Alcohol Use Standard Drinks/Week Comments Never 0 (1 standard drink = 0.6 oz pur e alcohol) Sex and Gender Information Value Date Recorded Sex Assigned at Not on file 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 Gender Identity Male 10/23/2019 10:54 PM CDT Sexual Orientation Not on file Obstetrics History Last Filed Vital Signs Vital Sign Reading Time Taken Comments Blood Pressure 118/52 03/21/2024 1:45 PM MANUFACTURING TEAM MEMBER Pulse 73 03/21/2024 1:45 PM MANUFACTURING TEAM MEMBER Temperature - - Respiratory Rate - - Oxygen Saturation 97% 03/21/2024 1:45 PM MANUFACTURING TEAM MEMBER Inhaled Oxygen Concentration - - Weight 78.5 kg (173 lb) 03/21/2024 1:45 PM MANUFACTURING TEAM MEMBER Height 177.8 cm (5' 10) 03/21/2024 1:45 PM MANUFACTURING TEAM MEMBER Body Mass Index 24.82 03/21/2024 1:45 PM MANUFACTURING TEAM MEMBER Plan of Treatment Health Maintenance Due Date Last Done Comments Depression Screening 1936 Fall Risk Assessment 1936 DTaP/Tdap/Td Vaccine (1 - Tdap) 09/15/1947 Hepatitis B Screening 1954 Zoster Vaccine (1 of 2) 1986 Well Visit 65+ 2001 Influenza Vaccine (Season Ended) 2025 02/26/2018, 02/16/2017, 02/19/2016, Additional history exists Pneumococcal vaccine 65+ Completed 04/10/2017, 05/10 Insurance [facility] MEDICARE T MEDICARE Care Teams System Administration Advisor Relationship Specialty Start Date End Date Trey Peterson MD PCP - General Family Practice 03/21/24
--- OUTSIDE RECORDS SUMMARY | 2024-10-10 08:17 | XMS_ITS | Encounter Summary ---
Author Organization [facility] Address [address] [place] [address] Care Team Providers Care Fold Skiver Name Role Phone Unavailable Primary Care Provider Unavailabl e Encounter Details Date Type Department Care Team (Late st Contact Info) Description 03/05/2021 Lab Requisition [facility] DermPath Lab [address] [facility], [place] [phone] Robin Sherman Jr., MD [address] [place] [address] Social History Tobacco Use Types Packs/Day Years Used Date Smoking Tobacco: Never Assessed Sex and Gender Information Value Date Recorded Sex Assigned at Not on file Legal Sex Male 11:56 AM CDT Gender Identity Not on file Sexual Orientation Not on file documented as of this encounter Plan of Treatment Not on file documented as of this encounter Procedures Procedure Name Priority Date/Time Associated Diagnosis Comments DERMATOPATHOLOGY Routine 03/04/2021 12:0 0 AM CDT documented in this encounter Results * DERMATOPATHOLOGY (03/04/2021 12:00 AM CDT) Case Report Dermatopathology Report Case: [id number] Authorizing Provider: Robin Sherman Jr., MD Collected: 03/04/2021 12:00 AM Ordering Location: [facility] DermPath Lab Received: 03/05/2021 01:36 PM Pathologist: Stephie Castellanos MD Specimen: Skin, right superior central buccal cheek 5:39 PM CDT DERMATOPATHOLOGY LABORATORY Final Diagnosis Specimen A. 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 . 5:39 PM CDT DERMATOPATHOLOGY LABORATORY Gross Description Specimen A: Received is one formalin filled container labeled with the patient's name and designated right superior central buccal cheek. The specimen consists of a shave biopsy measuring [id number]. Jar 0. 5:39 PM CDT DERMATOPATHOLOGY LABORATORY [...] determined by the Dermatopathology Laboratory at [facility], directed by Dr. Danielle Castellanos. These tests need not be, and therefore are not, approved by the [place] Food and Drug Administration. The tests are used for clinical purposes. Billing Codes Specimen Charges Stain Charges 15269 1 5:39 PM CDT DERMATOPATHOLOGY LABORATORY Embedded Images 5:39 PM CDT DERMATOPATHOLOGY LABORATORY Pathology/Cytolog y TISSUE SPECIMEN FROM SKIN / Unknown 03/04/2021 03/05/2021 1:36 PM CDT Robin Sherman Jr., MD LAB - PATHOLOGY/CYTOLOG Y ORDERABLES Final Result DERMATOPATHOLOGY LABORATORY [facility] - Department of Dermatology [address], [address] [phone] documented in this encounter Visit Diagnoses Not on filedocumented in this encounter
--- OUTSIDE RECORDS SUMMARY | 2024-10-10 08:17 | XMS_ITS | Clinical Summary ---
Author Organization [facility] Address [address] [place] [address] Care Team Providers Care Rn New Graduate Name Role Phone Unavailable Primary Care Provider Unavailabl e Source Comments [facility] [employer],non-owned Affiliates and Associated Physician Practices is amultiple site organization consisting of ambulatory clinics and hospital sitesin [place], [place] and [place]. This disclosure is being madepursuant to the Care Everywhere program and may not contain all information available regarding this patient. Last updated 18.[facility] [employer] Social History Tobacco Use Types Packs/Day Years [...] - 1-dose 75+ series) 09/15/2011 COVID-19 VACCINE (2023-2 5 season) 2024 DEPRESSION SCREENING 05/09/2024 INFLUENZA VACCINE (Season Ended) 2025 HEPATITIS B VACCINE Aged Out No longe r eligible based on patient's age to complete this topic HIB VACCINE Aged Out No longer eligi ble based on patient's age to complete this topic HPV VACCINE Aged Out No longer eligi ble based on patient's age to complete this topic MENINGOCOCCAL (Group B) VACC INE SHARED DECISION-MAKING Aged Out No longer eligibl e based on patient's age to complete this topic MENINGOCOCCAL GROUPS A/C/Y/W VACCINE Aged Out No longer eligible b ased on patient's age to complete this topic Insurance [facility] MEDICARE ADV
--- OUTSIDE RECORDS SUMMARY | 2024-10-10 08:17 | XMS_ITS | Referral Summary ---
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 Gender Identity Male 10/23/2019 10:54 PM CDT Sexual Orientation Not on file Last Filed Vital Signs Vital Sign Reading Time Taken Comments Blood Pressure 118/52 03/21/2024 1:45 PM MIDDLE SCHOOL HUMANITIES TEACHER Pulse 73 03/21/2024 1:45 PM MIDDLE SCHOOL HUMANITIES TEACHER Temperature - - Respiratory Rate - - Oxygen Saturation 97% 03/21/2024 1:45 PM MIDDLE SCHOOL HUMANITIES TEACHER Inhaled Oxygen Concentration - - Weight 78.5 kg (173 lb) 03/21/2024 1:45 PM MIDDLE SCHOOL HUMANITIES TEACHER Height 177.8 cm (5' 10) 03/21/2024 1:45 PM MIDDLE SCHOOL HUMANITIES TEACHER Body Mass Index 24.82 03/21/2024 1:45 PM MIDDLE SCHOOL HUMANITIES TEACHER Plan of Treatment Not on file Insurance [employer] MEDICARE [facility] MEDICARE Care Teams Cancer Registrar Relationship Specialty Start Date End Date Trey Peterson MD PCP - General Family Practice 03/21/24
--- OUTSIDE RECORDS SUMMARY | 2024-10-10 08:17 | XMS_ITS | Encounter Summary ---
Author Organization [facility] Address [address] [facility] [place] [address] Care Team Providers Care Harness Brusher Name Role Phone Unavailable Primary Care Provider Unavailabl e Encounter Details Date Type Department Care Team (Late st Contact Info) Description 02/12/2020 Lab Requisition [facility] DermPath Lab [address] [facility] [place] [phone] [place] [address] [place] [address] Social History Tobacco Use Types Packs/Day Years [...] AM CDT) Case Report Dermatopathology Report Case: [id number] Authorizing Provider: Rosaura Madison MD Collected: 02/11/2020 12:00 AM Ordering Location: [facility] DermPath Lab Received: 02/12/2020 02:00 PM Pathologist: Sully Alonzo MD Specimen: Skin, right dorsal wrist 0 3:06 PM CDT DERMATOPATHOLOGY LABORATORY Final Diagnosis Specimen A. SKIN, right dorsal wrist: HYPERPLASTIC (HYPERTROPHIC) ACTINIC KERATOSIS, LICHENOID (L57.0) 0 3:06 PM CDT DERMATOPATHOLOGY LABORATORY at 1505 CDT Clinical History Keratoacanthoma. . 0 3:06 PM CDT DERMATOPATHOLOGY LABORATORY Gross Description Specimen A: Received is one formalin filled container labeled with the patient's name and designated right dorsal wrist. The specimen consists of a shave biopsy measuring [id number]. Jar 0. 0 3:06 PM CDT DERMATOPATHOLOGY [...] characteristic determined by the Dermatopathology Laboratory at [facility], directed by Dr. Danielle Castellanos. These tests need not be, and therefore are not, approved by the [place] Food and Drug Administration. The tests are used for clinical purposes. Billing Codes Specimen Charges Stain Charges 00277 1 0 3:06 PM CDT DERMATOPATHOLOGY LABORATORY Embedded Images 0 3:06 PM CDT DERMATOPATHOLOGY LABORATORY Pathology/Cytolog y TISSUE SPECIMEN FROM SKIN / Unknown 02/11/2020 02/12/2020 2:00 PM CDT Rosaura Madison MD LAB - PATHOLOGY/CYTOLOGY ORDERABLES Final Result DERMATOPATHOLOGY LABORATORY [facility] - Department of Dermatology [address], [address] [phone] documented in this encounter Visit Diagnoses Not on filedocumented in this encounter
--- OUTSIDE RECORDS SUMMARY | 2024-10-10 08:17 | XMS_ITS | Encounter Summary ---
Author Organization [facility] Address [address] [facility] [place] [address] Care Team Providers Care Contract Programmer Name Role Phone Unavailable Primary Care Provider Unavailabl e Encounter Details Date Type Department Care Team (Late st Contact Info) Description 01/25/2020 Lab Requisition [facility] [address] [facility], [place] [phone] [place] [address] [place] [address] Social History Tobacco Use Types Packs/Day Years [...] AM CDT) Case Report Dermatopathology Report Case: [id number] Authorizing Provider: Rosaura Madison MD Collected: 01/24/2020 12:00 AM Ordering Location: [facility] Received: 01/25/2020 12:39 PM Pathologist: [...] (L57.0) 0 4:21 PM CDT DERMATOPATHOLOGY LABORATORY at 1621 CDT Clinical History A: Cyst. 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 . 0 4:21 PM CDT DERMATOPATHOLOGY LABORATORY Gross Description Specimen A: Received is one formalin filled container labeled with the patient's name and designated left superior upper back. The specimen consists of a [id number] excision. The specimen is serially sectioned and a sales representative electric service section is submitted in cassette 1. Jar 1. Specimen B: Received is one formalin filled container labeled with the patient's name and designated right superior central forehead . The specimen consists of a shave biopsy measuring [id number]. Jar 0. 0 4:21 PM CDT DERMATOPATHOLOGY [...] purposes. Billing Codes Specimen Charges Stain Charges [id number] 79805 1 1 0 4:21 PM CDT DERMATOPATHOLOGY LABORATORY Embedded Images 0 4:21 PM CDT DERMATOPATHOLOGY LABORATORY Pathology/Cytology TISSUE SPECIMEN FROM SKIN / Unknown 01/24/2020 01/25/2020 12:39 PM CDT Miscellaneous samples (specimen) TISSUE SPECIMEN FROM SKIN / Unknown 01/24/2020 01/25/2020 12:39 PM CDT us Rosaura Madison MD LAB - PATHOLOGY/CYTOLOGY ORDERABLES Final Result DERMATOPATHOLOGY LABORATORY [facility] - Department of Dermatology [facility] Special[facility] [address] [place] [address], [address] [phone] documented in this encounter Visit Diagnoses Not on filedocumented in this encounter
[2024-10-10 19:23] LABS: Hematocrit 44.3 % (42.0-52.0); Hemoglobin 13.9 g/dL (14.0-18.0); Mean Corpuscular HGB Conc 31.4 g/dl (32-36); Mean Corpuscular Volume 98.9 fl (80-100); Mean Platelet Volume 9.7 fl (7.4-10.4); Platelet Count Result 292 k/mm3 (150-375); Red Blood Count 4.48 M/mm3 (4.6-6.20); Red Cell Distribution Width 14.3 % (11.5-14.5); White Blood Count 8.6 K/mm3 (4.5-10.0)
[2024-10-10 21:16] LABS: Vitamin D 25 Hydroxy 21.3 ng/mL
[2024-10-10 21:37] LABS: Alanine Aminotransferase 17 U/L (6-50); Albumin Level 4.5 g/dL (3.5-5.1); Alkaline Phosphatase 86 U/L (38-126); Anion Gap 6 mmol/L (4-12); Aspartate Amino Transferase 61 U/L (17-59); Bilirubin,Total 0.6 mg/dL (0.2-1.3); Blood Urea Nitrogen 21 mg/dL (9-20); Calcium 9.8 mg/dL (8.4-10.2); Carbon Dioxide 28 mmol/L (22-30); Chloride 104 mmol/L (98-107); Estimated Glomerular Filt Rate > 60; Glucose 70 mg/dL (65-110); Potassium 4.5 mmol/L (3.4-5.0); Sodium 138 mmol/L (137-145); Total Protein 7.4 g/dL (6.3-8.2)
[2024-10-10 22:11] LABS: Hemoglobin A1C 5.7 % (<5.7)
== END 2024-10-10 08:15 | disposition home or self-care (01) ==
LOC: ANHGOSHLAB 08:14
PROVIDERS: PCP Family Medicine; Visit Provider Family Medicine
DX: R79.89 Other specified abnormal findings of blood chemistry (principal); N52.9 Male erectile dysfunction, unspecified; I10 Essential (primary) hypertension; I63.9 Cerebral infarction, unspecified; J30.2 Other seasonal allergic rhinitis; E55.9 Vitamin D deficiency, unspecified
CPT/HCPCS: 36415; 80053; 82306; 83036; 85027

== ENCOUNTER 2025-01-18 07:22 | Emergency (ER) | payer MEDICARE, SELFPAY ==
--- NOTE | ~2025-01-18 | XR_ITS ---
EXAMINATION: XR hip RT 2V w AP pelvis, 01/18/2025 7:55 CDT HISTORY: fall COMPARISON: No comparisons available. Findings: There is a fracture of the proximal femur adjacent to the proximal arthroplasty along the lateral aspect which is slightly displaced. Arthroplasty intact. Moderate left-sided degenerative changes. Soft tissues unremarkable. Impression: Fracture detailed above Reviewed, dictated and finalized at location A. Impression: Fracture detailed above
--- NOTE | ~2025-01-18 | CT_ITS ---
EXAMINATION: CT hip RT wo con COMPARISON: None HISTORY: fall TECHNIQUE: Axial images were obtained without IV contrast. Sagittal, coronal reconstruction images were obtained from the axial views. CT scan performed using dose optimization techniques including the following automated exposure control; adjustment of mA and/or kV; use of iterative reconstruction technique. Automatic exposure control was used to reduce radiation dose. Permanent radiation dose record is archived to PACS. FINDINGS: Moderate degenerative changes of the visualized sacroiliac joints. Right hip arthroplasties noted, the hardware appears intact. There is no lucency surrounding around the hardware with no dislocation however there is a fracture of the proximal femur along the lateral aspect with displacement of the greater trochanter. Displacement laterally measures 3 mm. 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 The prostate appears enlarged, correlate with PSA. Small hydroceles are noted. IMPRESSION: Proximal right femoral fracture detailed above. Reviewed, dictated and finalized at location A.
[2025-01-18 07:20] VITALS: BP 174/70; PULSE 88; RESP 20; TEMP 36.4; O2SAT 99
[2025-01-18 07:32] VITALS: BP 159/76; PULSE 74; RESP 21; TEMP 36.4; O2SAT 99
--- NOTE | 2025-01-18 07:39 | ED.LOWEXIN ---
HPI - Extremity Injury (Lower) General Chief Complaint: Extremity Injury, Lower Stated Complaint: hip injury Time Seen by Provider: 01/18/25 07:34 Source: patient Mode of arrival: EMS History of Present Illness HPI Narrative: 89 years old white male came from home by ambulance, was trying to put his pants on, slid on the carpet landed on the right hip. He denies head injury or any other injury. History of right hip replacement 2022. 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 No issues since 2019. Cerebrovascular accident (04/2019) Shingles Hypertension Atrial premature beats Surgical History Surgical History History of tonsillectomy History of bilateral cataract extraction History of surgical removal of lesion x2 History of appendectomy Family History Family History Father Cerebrovascular accident Had a stroke age 78 age 82 Mother Cerebrovascular accident Sounds like she actually had head trauma perhaps a subdural hematoma and stroke stroke symptoms as result, age 76 Other Family history of arthritis Hypertension Social History Social History Social History: . Active in restoration. Has 3 sons. Smoking status: Never smoker Second hand tobacco smoke exposure: No Alcohol intake: never Substance use: never Substance use type: does not use Lack of Transportation: No Lack of Food: Never True Current Housing: I Have Housing Concerned About Future Housing: No Difficulty Paying Gas/Electric Bills: No Difficulty Paying for Meds: No Currently Unemployed: No Education: Master's Degree or Higher Difficulty w/ Childcare or Family Care: No Living arrangements: with family Additional living arrangements comments: Lives with spouse in [place]. 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 Spiritual care concerns: No Agree to blood products: Yes Exam Narrative: General appearance: Well-developed, well-nourished Skin: Normal color Head: Normocephalic, nontraumatic Eyes: Clear conjunctiva ENT: Oropharynx normal, ears normal, nose normal Neck: Supple, nontender Chest and respiratory: Airway patent, no respiratory distress, no accessory muscle use Heart: Regular rate/rhythm Abdomen: Soft, nontender, no organomegaly, quiet bowel sounds Vascular: Normal peripheral pulses, normal capillary refill. Musculoskeletal: Normal range of motion, nontender back Neurologic: Alert and oriented ?3, INVESTIGATOR OPERATOR is normal as tested, no gross motor deficit Course Consultations Consultation #1: DR AGRZA PATIENT CAN GO HOME ON NO WEIGHT BEARING FOR 8 WEEKS Date: 01/18/25 Vital Signs Vital signs: Vital Signs Temperature 36.4 C 01/18/25 07:20 Pulse Rate 88 01/18/25 07:20 Respiratory Rate 20 01/18/25 07:20 Blood Pressure 174/70 H 01/18/25 07:20 Pulse Oximetry 99 01/18/25 07:20 Oxygen Delivery Room Air 01/18/25 07:20 Temperature 36.4 C 01/18/25 07:32 Pulse Rate 74 01/18/25 07:32 Respiratory Rate 21 H 01/18/25 07:32 Blood Pressure 159/76 H 01/18/25 07:32 Pulse Oximetry 99 01/18/25 07:32 Oxygen Delivery Room Air 01/18/25 07:20 MDM - Extremity Injury (Lower) MDM Narrative Medical decision making narrative: Differential diagnosis include contusion, sprain, strain, less likely fracture or dislocation Differential Diagnosis Differential diagnosis: Likely other (As above) Imaging Data Radiologist's impression: Impressions Hip/Pelvis X-Ray 01/18/25 08:11 Impression: Fracture detailed above Fracture of the proximal femur adjacent to the proximal arthroplasty along the lateral aspect which is slightly displaced arthroplasty intact Critical Care Time Critical Care Time Critical Care Time: No Discharge Plan Discharge Clinical Impression: Closed right femoral fracture Patient Disposition: Home Condition: Stable Instructions: Hip Fracture (ED) Additional Instructions: Return if symptoms are worsening , call your family physician for appointment, take Tylenol as as needed for aches and pain, continue home medications. No weight-bearing for 8 weeks Patient Language: Montserratian Prescriptions: No Action amlodipine 5 mg tablet 5 mg PO DAILY alprazolam [Xanax] 0.5 mg tablet 0.5 mg PO ONCE Qty: 1 0RF Rx Instructions: Take 20 minutes before imaging fluticasone propionate 50 mcg/actuation spray,suspension See Rx Instructions .ROUTE .COMPLEX Qty: 48 1RF Dose Instruction: SPRAY 2 SPRAYS INTO EACH NOSTRIL EVERY DAY Rx Instructions: SPRAY 2 SPRAYS INTO EACH NOSTRIL EVERY DAY lisinopril 10 mg tablet See Rx Instructions .ROUTE .COMPLEX Qty: 90 1RF Dose Instruction: TAKE 1 TABLET BY MOUTH EVERY DAY Rx Instructions: TAKE 1 TABLET BY MOUTH EVERY DAY clopidogrel 75 mg tablet 75 mg PO DAILY Qty: 90 1RF atorvastatin 20 mg tablet See Rx Instructions .ROUTE .COMPLEX Qty: 90 2RF Dose Instruction: TAKE 1 TABLET BY MOUTH DAILY Rx Instructions: TAKE 1 TABLET BY MOUTH DAILY Follow-up/Referrals: Trey Peterson MD [Primary Care Provider, Family Practice]
--- OUTSIDE RECORDS SUMMARY | 2025-01-18 07:40 | XMS_ITS | Encounter Summary ---
Author Organization [facility] Address [address] [place] [address] Care Team Providers Care Assistant Manager/Embalmer Name Role Phone Unavailable Primary Care Provider Unavailabl e Encounter Details Date Type Department Care Team (Late st Contact Info) Description 01/25/2020 Lab Requisition [facility] DermPath Lab [address] [place], [place] [id number] [place] [address] [place] [address] Social History Tobacco Use Types Packs/Day Years [...] AM CDT) Case Report Dermatopathology Report Case: [id number] Authorizing Provider: Rosaura Madison MD Collected: 01/24/2020 12:00 AM Ordering Location: [facility] DermPath Lab Received: 01/25/2020 12:39 PM Pathologist: [...] upper back. The specimen consists of a [id number] excision. The specimen is serially sectioned and a physician relations representative section is submitted in cassette 1. Jar 1. Specimen B: Received is one formalin filled container labeled with the patient's name and designated right superior central forehead . The specimen consists of a shave biopsy measuring [id number]. Jar 0. 0 4:21 PM CDT DERMATOPATHOLOGY [...] characteristic determined by the Dermatopathology Laboratory at [facility], directed by Dr. Danielle Castellanos. These tests need not be, and therefore are not, approved by the [place] Food and Drug Administration. The tests are used for clinical purposes. Billing Codes Specimen Charges Stain Charges 91890 21134 1 1 0 4:21 PM CDT DERMATOPATHOLOGY LABORATORY Embedded Images 0 4:21 PM CDT DERMATOPATHOLOGY LABORATORY Pathology/Cytology TISSUE SPECIMEN FROM SKIN / Unknown 01/24/2020 01/25/2020 12:39 PM CDT Miscellaneous samples (specimen) TISSUE SPECIMEN FROM SKIN / Unknown 01/24/2020 01/25/2020 12:39 PM CDT us Rosaura Madison MD LAB - PATHOLOGY/CYTOLOGY ORDERABLES Final Result DERMATOPATHOLOGY LABORATORY [facility] - Department of Dermatology [facility] [address] [place] [address], [address] [phone] documented in this encounter Visit Diagnoses Not on filedocumented in this encounter
--- OUTSIDE RECORDS SUMMARY | 2025-01-18 07:40 | XMS_ITS | Clinical Summary ---
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 Gender Identity Male 10/23/2019 10:54 PM CDT Sexual Orientation Not on file Obstetrics History Last Filed Vital Signs Vital Sign Reading Time Taken Comments Blood Pressure 118/52 03/21/2024 1:45 PM LAST SAWYER Pulse 73 03/21/2024 1:45 PM LAST SAWYER Temperature - - Respiratory Rate - - Oxygen Saturation 97% 03/21/2024 1:45 PM LAST SAWYER Inhaled Oxygen Concentration - - Weight 78.5 kg (173 lb) 03/21/2024 1:45 PM LAST SAWYER Height 177.8 cm (5' 10) 03/21/2024 1:45 PM LAST SAWYER Body Mass Index 24.82 03/21/2024 1:45 PM LAST SAWYER Plan of Treatment Health Maintenance Due Date Last Done Comments Depression Screening 1936 Fall Risk Assessment 1936 DTaP/Tdap/Td Vaccine (1 - Tdap) 09/15/1947 Hepatitis B Screening 1954 Zoster Vaccine (1 of 2) 1986 Well Visit 65+ 2001 Influenza Vaccine (#1) 2025 8, 02/16/2017, 02/19/2016, Additional history exists Pneumococcal vaccine 65+ Completed 04/10/2017, 05/10 Insurance [facility] MEDICARE T MEDICARE Care Teams Dialysis Nurse Relationship Specialty Start Date End Date Trey Peterson MD PCP - General Family Practice 03/21/24
--- OUTSIDE RECORDS SUMMARY | 2025-01-18 07:40 | XMS_ITS | Encounter Summary ---
Author Organization [facility] Address [address] [place] [address] Care Team Providers Care Range Master Name Role Phone Unavailable Primary Care Provider Unavailabl e Encounter Details Date Type Department Care Team (Late st Contact Info) Description 02/12/2020 Lab Requisition [facility] DermPath Lab [address] [place] [id number] [place] [address] [place] [address] Social History Tobacco Use Types Packs/Day Years [...] AM CDT) Case Report Dermatopathology Report Case: [id number] Authorizing Provider: Rosaura Madison MD Collected: 02/11/2020 12:00 AM Ordering Location: [facility] DermPath Lab Received: 02/12/2020 02:00 PM Pathologist: [...] specimen consists of a shave biopsy measuring [id number]. Jar 0. 0 3:06 PM CDT DERMATOPATHOLOGY [...] characteristic determined by the Dermatopathology Laboratory at [facility], directed by Dr. Danielle Castellanos. These tests need not be, and therefore are not, approved by the [place] Food and Drug Administration. The tests are used for clinical purposes. Billing Codes Specimen Charges Stain Charges 74416 1 0 3:06 PM CDT DERMATOPATHOLOGY LABORATORY Embedded Images 0 3:06 PM CDT DERMATOPATHOLOGY LABORATORY Pathology/Cytolog y TISSUE SPECIMEN FROM SKIN / Unknown 02/11/2020 02/12/2020 2:00 PM CDT Rosaura Madison MD LAB - PATHOLOGY/CYTOLOGY ORDERABLES Final Result DERMATOPATHOLOGY LABORATORY [facility] - Department of Dermatology [address], [address] [phone] documented in this encounter Visit Diagnoses Not on filedocumented in this encounter
--- OUTSIDE RECORDS SUMMARY | 2025-01-18 07:40 | XMS_ITS | Encounter Summary ---
Author Organization [facility] Address [address] [place] [address] Care Team Providers Care Mold Construction Supervisor Name Role Phone Unavailable Primary Care Provider Unavailabl e Encounter Details Date Type Department Care Team (Late st Contact Info) Description 03/05/2021 Lab Requisition [facility] DermPath Lab [address] [facility] [place] [id number] Robin Sherman Jr., MD [address] [place] [address] Social History Tobacco Use Types Packs/Day Years [...] AM CDT) Case Report Dermatopathology Report Case: [id number] Authorizing Provider: Robin Sherman Jr., MD Collected: 03/04/2021 12:00 AM Ordering Location: [facility] DermPath Lab Received: 03/05/2021 01:36 PM Pathologist: [...] specimen consists of a shave biopsy measuring [id number]. Jar 0. 5:39 PM CDT DERMATOPATHOLOGY LABORATORY [...] characteristic determined by the Dermatopathology Laboratory at [facility], directed by Dr. Danielle Castellanos. These tests need not be, and therefore are not, approved by the [place] Food and Drug Administration. The tests are used for clinical purposes. Billing Codes Specimen Charges Stain Charges 69948 1 5:39 PM CDT DERMATOPATHOLOGY LABORATORY Embedded Images 5:39 PM CDT DERMATOPATHOLOGY LABORATORY Pathology/Cytolog y TISSUE SPECIMEN FROM SKIN / Unknown 03/04/2021 03/05/2021 1:36 PM CDT Robin Sherman Jr., MD LAB - PATHOLOGY/CYTOLOG Y ORDERABLES Final Result DERMATOPATHOLOGY LABORATORY [facility] - Department of Dermatology [address], [address] [phone] documented in this encounter Visit Diagnoses Not on filedocumented in this encounter
--- OUTSIDE RECORDS SUMMARY | 2025-01-18 07:40 | XMS_ITS | Clinical Summary ---
Author Organization [facility] Address [address] [place] [address] Care Team Providers Care Entry Level Manager Name Role Phone Unavailable Primary Care Provider Unavailabl e Source Comments [facility],non-owned Affiliates and Associated Physician Practices is amultiple site organization consisting of ambulatory clinics and hospital sitesin [place], [place], [place] and [place]. This disclosure is being madepursuant to the Care Everywhere program and may not contain all information available regarding this patient. Last updated 18.[facility] Social History Tobacco Use Types Packs/Day Years [...] season) 2024 DEPRESSION SCREENING 05/09/2024 INFLUENZA VACCINE (#1) 2025 HEPATITIS B VACCINE Aged Out No [...] patient's age to complete this topic Insurance [facility] MEDICARE ADV
[2025-01-18 09:41] VITALS: BP 151/76; PULSE 89; RESP 15; TEMP 36.7; O2SAT 98
--- NOTE | 2025-01-18 15:25 | PCCCNOTE ---
Call received from [facility] rep. She states pt is a resident of their independent living section of their facility. Informed we will follow pt and let her know when ready to discharge & what services he may need. 1300: Pt discharged this morning back to his apartment with non weight bearing status with recommendations for F/U. Call placed to Daniella and left message informing her of pt discharge.
== END 2025-01-18 09:43 | disposition home or self-care (01) ==
PROVIDERS: Emergency Provider Emergency Medicine; PCP Family Medicine
DX: S72.001A Fracture of unspecified part of neck of right femur, initial encounter for closed fracture (principal); W18.39XA Other fall on same level, initial encounter; Z96.641 Presence of right artificial hip joint
CPT/HCPCS: 73502; 73700; 99284

== ENCOUNTER 2025-04-01 07:43 | Outpatient (CLI) | payer MEDICARE, SELFPAY ==
--- NOTE | ~2025-04-01 | DEXA_ITS ---
Bone Density Report Name: ANTONIO BOB Age: 89 Sex: Male Ethnicity: White Date of : 1935 Indication: osteopenia; height loss; history of glucocorticoids; prior fracture; Referring Provider: MATTI NATH Study: Bone densitometry was performed. Exam Date: April 01, 2025 Accession number: [id number] Bone Density: Region BMD T-score Z-score Classification AP Spine(L1, L2, L3) 1.216 1.3 2.6 Normal Femoral Neck (Left) 0.642 -2.1 -0.4 Osteopenia Total Hip (Left) 0.790 -1.6 -0.3 Osteopenia World Health Organization criteria for BMD impression classify patients as: Normal (T-score at or above -1.0), Osteopenia (T-score between -1.0 and -2.5), or Osteoporosis (T-score at or below -2.5). 10-year Fracture Risk: FRAX not reported because: Prior hip or vertebral fracture Previous Exams: Region Exam Age BMD T-score BMD Change BMD Change Date g/cm2 vs Baseline vs Previous AP Spine (L1-L3) 04/01/2025 89 1.216 1.3 -0.001 (-0.1%) -0.001 (-0.1%) 01/24/2023 87 1.217 1.3 Total Hip(Left) 04/01/2025 89 0.790 -1.6 -0.063 (-7.4%) -0.063 (-7.4%) 01/24/2023 87 0.854 -1.2 *Denotes significance at 95% confidence level, LSC for AP Spine = 0.022 g/cm2, LSC for Total Hip = 0.027 g/cm2 Clinical Information Provided by Patient: Have had a previous hip or vertebral fracture Has had a low trauma fracture Has taken Glucocorticoids Has used the following medications: Vitamin D Patient maximum height was 70 Impression: The patient has low bone mass, based on the Left Femoral Neck T-score. The patient has risk factors, including: previous fracture, history of glucocorticoid therapy. The BMD for the Total Hip(Left) decreased, changing by -7.4% since the last DXA exam. Discussion: INCREASED RISK OF FRACTURE DUE TO HISTORY OF LOW TRAUMA FRACTURE. The patient's previous fracture puts the patient at high risk of a future fracture. In untreated patients, the risk of osteoporotic fracture increases approximately two-fold for each 1.0 SD decrease in T-score. Low bone density is not the only risk factor for fracture; also consider factors such as patient's age, frailty or poor health, risk of falling, risk of injury, previous osteoporotic fracture, family history of osteoporosis, cigarette smoking, low body weight, etc. Not everyone with a low trauma fracture has osteoporosis; osteomalacia and other metabolic bone disorders should also be considered. Patients who have osteoporosis should be evaluated for specific diseases and conditions (secondary causes) that may cause or contribute to bone loss and fracture risk. National Osteoporosis Foundation (NOF) recommends pharmacologic intervention for patients with a prior low trauma hip or vertebral fracture regardless of BMD T-score. The patient should follow a healthful lifestyle (good nutrition with adequate calcium and vitamin D, and appropriate weight-bearing exercise). Follow-Up: Consider a repeat BMD and Vertebral Fracture Assessment (VFA) exam in 2 years or sooner if medically necessary, to reassess this patient's status. Reported by: SANAZ on 04/01/2025 8:28:00 AM. Reviewed, dictated and finalized at location A.
--- OUTSIDE RECORDS SUMMARY | 2025-04-01 07:47 | XMS_ITS | Clinical Summary ---
Author Organization [facility] Address [address] [place] [address] Care Team Providers Care Executive Secretary Social Welfare Name Role Phone Unavailable Primary Care Provider Unavailabl e Source Comments [facility],non-owned Affiliates and Associated Physician Practices is amultiple site organization consisting of ambulatory clinics and hospital sitesin [place], [place], [place] and [place]. This disclosure is being madepursuant to the Care Everywhere program and may not contain all information available regarding this patient. Last updated 18.[facility] Social History Tobacco Use Types Packs/Day Years [...] yrs (1 - 1-dose 75+ series) 09/15/2011 DEPRESSION SCREENING 05/09/2024 COVID-19 VACCINE (1 - 2024-2 6 season) 2025 INFLUENZA VACCINE (#1) 2025 HEPATITIS B VACCINE [...] patient's age to complete this topic Insurance [facility] MEDICARE ADV
--- OUTSIDE RECORDS SUMMARY | 2025-04-01 07:47 | XMS_ITS | Clinical Summary ---
Author Organization [facility] [address] Address [address] [place] [address] Care Team Providers Care Wad Blanking Press Adjuster Name Role Phone Trey Peterson MD Primary Care Provider [phone] Allergies Active Allergy Reactions Criticality Noted Date Comments Metoprolol Rash Medium 04/26/2019 Medications atorvastatin (LIPITOR) 20 mg tablet Take 1 tablet (20 mg total) by mouth daily 0 9 Active clopidogreL (PLAVIX) 75 mg tablet Take 1 tablet (75 mg total) by mouth daily Active fluticasone (VERAMYST) 27.5 mcg/actuation nasal sprayIndication s:Allergic Rhinitis Administer 2 sprays into each nostril daily Active cetirizine (ZyrTEC) 10 mg tablet Take 1 tablet (10 mg total) by mouth as needed Active cholecalciferol , vitamin D3, (VITAMIN D3 ORAL) Take 50 mcg by mouth Active tadalafiL (CIALIS) 20 mg tablet Take 1 tablet (20 mg total) by mouth daily as needed 4 Active lisinopriL (PRINIVIL,ZESTR IL) 10 mg tablet Take 1 tablet (10 mg total) by mouth nightly Please take in evening 90 tablet 1 5 Active amLODIPine (NORVASC) 5 mg tablet Take 1 tablet (5 mg total) by mouth daily Take every morning 90 tablet 1 5 08/27/19 26 Active Active Problems Problem Noted Date Diagnosed Date H/O: CVA (cerebrovascular accident) 02/16/2023 Assessment & Plan (02/27/2025 2:19 PM CDT): Continues on plavix 75 mg daily and atorvastatin Mixed hyperlipidemia 05/26/2021 Assessment & Plan (02/27/2025 12:32 PM CDT): remains on atorvastatin 20 mg daily. Medication side effect 11/17/2020 Visit for wound check 10/29/2019 Status post placement of implantable loop record er 10/22/2019 Overview (10/22/2019): [employer] Implantable Loop Recorder. Dx; Recurrent Syncope, NSVT, PVC's, PAC's. DOI 10/22/2019-[place]. [employer] remote monitoring. NSVT (nonsustained ventricular tachycardia) 01/07 PVC's (premature ventricular contractions) 01/19 PSVT (paroxysmal supraventricular tachycardia) 0 01/19/2019 Mitral valve regurgitation 01/19/2019 Assessment & Plan (02/27/2025 2:19 PM CDT): EF normal at 70-75% on last echo. With mild MR. Will continue to monitor with follow up echocardiograms. Essential hypertension 11/03/2018 Assessment & Plan (02/27/2025 12:32 PM CDT): Patient BP with reasonable control in office today at 146/80. He has been monitoring at assisted living and seems to run higher in the evening. We will adjust timing of meds to avoid shifts in BP. Will take norvasc in the evening and lisinopril at night. He will monitor BP at home and return for recheck in 3 mos or sooner if needed. Carotid atherosclerosis, bilateral 11/03/2018 History of syncope 11/03/2018 Resolved Problems Problem Noted Date Diagnosed Date Resolved Date Dyslipidemia 01/19/2019 11/30/2021 Encounters Date Type Department Care Team Description 02/28/2025 Telephone [facility] Cardiology [address] [place] [address] Rito Quintanilla MD 02/27/2025 10:30 AM CDT Office Visit [facility] Cardiology [address] [place] [address] Carla Chew NP Essential hypertension (Primary Dx); Nonrheumatic mitral valve regurgitation; Mixed hyperlipidemia; H/O: CVA (cerebrovascular accident) from Last 3 Months Surgical History Surgery [...] on file 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 Gender Identity Male 10/23/2019 10:54 PM CDT Sexual Orientation Not on file Last Filed Vital Signs Vital Sign Reading Time Taken Comments Blood Pressure 146/80 02/27/2025 11:05 AM CDT Pulse 70 02/27/2025 11:05 AM CDT Temperature - - Respiratory Rate - - Oxygen Saturation 97% 02/27/2025 11:05 AM CDT Inhaled Oxygen Concentration - - Weight 77.1 kg (170 lb) 02/27/2025 11:05 AM CDT Height 177.8 cm (5' 10) 02/27/2025 11:05 AM CDT Body Mass Index 24.39 02/27/2025 11:05 AM CDT Plan of Treatment Health Maintenance Due Date Last Done Comments Depression Screening 1936 Fall Risk Assessment 1936 DTaP/Tdap/Td Vaccine (1 - Tdap) 09/15/1947 Hepatitis B Screening 1954 Well Visit 65+ 2001 Zoster Vaccine (3 of 3) 09/08/2023 07/14/2023, 10/15 Covid-19 Vaccine (6 - 2024-2 6 season) 2025 03/14/2023, 10/06/2021, 02/23/2021, Additional history exists Influenza Vaccine (#1) 2025 4, 03/05/2020, 03/01/2019, Additional history exists Pneumococcal vaccine 65+ Completed 017, 06/06/2015, 06/05/2015 Insurance [facility] Care Teams Wad Blanking Press Adjuster Relationship Specialty Start Date End Date Trey Peterson MD PCP - General Family Practice 03/21/24
--- OUTSIDE RECORDS SUMMARY | 2025-04-01 07:47 | XMS_ITS | Encounter Summary ---
Author Organization [facility] Address [address] [place] [address] Care Team Providers Care Rolls Mill Operator Name Role Phone Unavailable Primary Care Provider Unavailabl e Encounter Details Date Type Department Care Team (Late st Contact Info) Description 01/25/2020 Lab Requisition [facility] DermPath Lab [address] [facility], [place] [id number] [place] [address] [place] [address] Social History Tobacco Use Types Packs/Day Years [...] AM CDT) Case Report Dermatopathology Report Case: [id number] Authorizing Provider: Rosaura Madison MD Collected: 01/24/2020 12:00 AM Ordering Location: [facility] Received: 01/25/2020 12:39 PM [...] upper back. The specimen consists of a [id number] excision. The specimen is serially sectioned and a event marketing representative section is submitted in cassette 1. Jar 1. Specimen B: Received is one formalin filled container labeled with the patient's name and designated right superior central forehead . The specimen consists of a shave biopsy measuring [id number]. Jar 0. 0 4:21 PM CDT DERMATOPATHOLOGY [...] characteristic determined by the Dermatopathology Laboratory at [facility], directed by Dr. Danielle Castellanos. These tests need not be, and therefore are not, approved by the [place] Food and Drug Administration. The tests are used for clinical purposes. Billing Codes Specimen Charges Stain Charges 47798 81959 1 1 0 4:21 PM CDT DERMATOPATHOLOGY LABORATORY Embedded Images 0 4:21 PM CDT DERMATOPATHOLOGY LABORATORY Pathology/Cytology TISSUE SPECIMEN FROM SKIN / Unknown 01/24/2020 01/25/2020 12:39 PM CDT Miscellaneous samples (specimen) TISSUE SPECIMEN FROM SKIN / Unknown 01/24/2020 01/25/2020 12:39 PM CDT us Rosaura Madison MD LAB - PATHOLOGY/CYTOLOGY ORDERABLES Final Result DERMATOPATHOLOGY LABORATORY [facility] - Department of Dermatology [facility] Specialized Medicine [address] [place] [address], [address] [phone] documented in this encounter Visit Diagnoses Not on filedocumented in this encounter
--- OUTSIDE RECORDS SUMMARY | 2025-04-01 07:48 | XMS_ITS | Encounter Summary ---
Author Organization [facility] Address [address] [place] [address] Care Team Providers Care Sales And Marketing Engineer Name Role Phone Unavailable Primary Care Provider Unavailabl e Encounter Details Date Type Department Care Team (Late st Contact Info) Description 03/05/2021 Lab Requisition [facility] DermPath Lab [address] [facility], [place] [phone] Robin Sherman Jr., MD [address] [facility] [facility] [address] [place] [address] Social History Tobacco Use Types Packs/Day Years [...] AM CDT) Case Report Dermatopathology Report Case: [id number] Authorizing Provider: Robin Sherman Jr., MD Collected: 03/04/2021 12:00 AM Ordering Location: [facility]erm[facility] Received: 03/05/2021 01:36 [...] specimen consists of a shave biopsy measuring [id number]. Jar 0. 5:39 PM CDT DERMATOPATHOLOGY LABORATORY [...] characteristic determined by the Dermatopathology Laboratory at [facility], directed by Dr. Danielle Castellanos. These tests need not be, and therefore are not, approved by the [place] Food and Drug Administration. The tests are used for clinical purposes. Billing Codes Specimen Charges Stain Charges 95507 1 5:39 PM CDT DERMATOPATHOLOGY LABORATORY Embedded Images 5:39 PM CDT DERMATOPATHOLOGY LABORATORY Pathology/Cytolog y TISSUE SPECIMEN FROM SKIN / Unknown 03/04/2021 03/05/2021 1:36 PM CDT Robin Sherman Jr., MD LAB - PATHOLOGY/CYTOLOG Y ORDERABLES Final Result DERMATOPATHOLOGY LABORATORY [facility] - Department of Dermatology [address], [address] [phone] documented in this encounter Visit Diagnoses Not on filedocumented in this encounter
--- OUTSIDE RECORDS SUMMARY | 2025-04-01 07:48 | XMS_ITS | Encounter Summary ---
Author Organization [facility] Address [address] [place] [address] Care Team Providers Care Brim Blocker Name Role Phone Unavailable Primary Care Provider Unavailabl e Encounter Details Date Type Department Care Team (Late st Contact Info) Description 02/12/2020 Lab Requisition [facility] DermPath Lab [address] [facility] [place] [phone] [place] [address] [place] [address] Social History Tobacco Use Types Packs/Day Years [...] AM CDT) Case Report Dermatopathology Report Case: [id number] Authorizing Provider: Rosaura Madison MD Collected: 02/11/2020 12:00 AM Ordering Location: [facility] Lab Received: 02/12/2020 02:00 [...] specimen consists of a shave biopsy measuring [id number]. Jar 0. 0 3:06 PM CDT DERMATOPATHOLOGY [...] characteristic determined by the Dermatopathology Laboratory at [facility], directed by Dr. Danielle Castellanos. These tests need not be, and therefore are not, approved by the [place] Food and Drug Administration. The tests are used for clinical purposes. Billing Codes Specimen Charges Stain Charges 24713 1 0 3:06 PM CDT DERMATOPATHOLOGY LABORATORY Embedded Images 0 3:06 PM CDT DERMATOPATHOLOGY LABORATORY Pathology/Cytolog y TISSUE SPECIMEN FROM SKIN / Unknown 02/11/2020 02/12/2020 2:00 PM CDT Rosaura Madison MD LAB - PATHOLOGY/CYTOLOGY ORDERABLES Final Result DERMATOPATHOLOGY LABORATORY [facility] - Department of Dermatology [address], [address] [phone] documented in this encounter Visit Diagnoses Not on filedocumented in this encounter
== END 2025-04-01 07:44 | disposition home or self-care (01) ==
PROVIDERS: PCP Family Medicine; Visit Provider Family Medicine
DX: M85.88 Other specified disorders of bone density and structure, other site (principal); E21.3 Hyperparathyroidism, unspecified
CPT/HCPCS: 77080